=== PATIENT | male | born 1945 | race Caucasian/White ===

== ENCOUNTER 2019-10-22 20:43 | Emergency (ER) | payer MEDICARE, OTHER, SELFPAY ==
[2019-10-22 20:44] VITALS: BP 170/105; PULSE 97; RESP 18; TEMP 36.9; O2SAT 95; BMI 33.4
[2019-10-22] MEDS: Diphth,Pertuss(Acell),Tet Vac 0.5 ML Vial IM (21:25)
--- NOTE | 2019-10-22 22:45 | ED.DEP ---
ED Disposition - Plan for ED Patient: Instructions: Dog Bite Prescriptions: Amox/Clavulanate Tablet [Augmentin Tablet] 875 mg PO Q12H #20 tab Transmission Status: Pending to [id number] Referrals: Ivan Pinzon Chi, MD [Primary Care Provider] -
--- NOTE | 2019-10-22 22:49 | ED.VISSUMM ---
- ER Visit Summary Date of Service: 10/22/19 Chief Complaint: Dog bite History of Present Illness: The patient is a 74 M presenting after dog bite. Patient was trying to break up a fight between his 2 dogs that were fighting over a toy. One of his dogs bit him on his left hand. Last tetanus is unknown. No other injuries. Dog's immunizations are up-to-date. Physical Examination: Vitals are stable. Patient is afebrile. Alert no acute distress. HEENT exam is unremarkable. Neck is supple. Lungs are clear and equal bilaterally. Heart is regular rate and rhythm. Extremities 3 cm laceration proximal to left thumb. Tendon function intact. Neurovascularly intact distally. Skin is warm and dry. No focal neurologic deficit. Remainder of exam is unremarkable. Emergency Department Course and Treatment: Wound was copiously irrigated. Anesthetized with lidocaine. Gaping area was loosely approximated with 2, 5-0 simple sutures. Patient is advised to watch closely for signs of infection. Advised to follow-up with primary care physician. He is given Augmentin and a prescription for Augmentin. He was given tetanus IM. Advised return to ED if worsening complaints. Disposition: Discharge home Impression: Dog bite, laceration repair This note was generated with [employer] dictation software. It may contain incorrect words, spelling, and punctuation that were not noted in review of the chart prior to signing ED Disposition - Plan for ED Patient: Instructions: Dog Bite Prescriptions: Amox/Clavulanate Tablet [Augmentin Tablet] 875 mg PO Q12H #20 tab Transmission Status: Received by [facility]/pharmacy #[id number] Referrals: Ivan Pinzon Chi, MD [Primary Care Provider] -
[2019-10-22] MEDS: Amox/Clavulanate 875 MG Tablet PO (23:04)
[2019-10-22 23:05] VITALS: PULSE 97; RESP 18; O2SAT 95
== END 2019-10-22 23:05 | disposition home or self-care (01) ==
LOC: ED 21:32
PROVIDERS: Emergency Provider Emergency Medicine; Family Provider Family Medicine Geriatric Medicine; PCP Family Medicine Geriatric Medicine
DX: S61.452A Open bite of left hand, initial encounter (principal); W54.0XXA Bitten by dog, initial encounter; Y93.89 Activity, other specified
CPT/HCPCS: 12002; 90471; 90715; 99283

== ENCOUNTER → 2019-11-22 12:09 | Outpatient (CLI) | payer MEDICARE, OTHER, SELFPAY ==
[2019-11-22 14:05] LABS: Absolute Lymphocyte Count 1.94 X10^3/uL (0.83-4.51); Basophil# 0.05 X10^3/uL; Basophil% 0.8 % (0-1); Eosinophil# 0.14 X10^3/uL; Eosinophils% 2.1 % (0-5); Hematocrit 44.3 % (40-54); Hemoglobin 14.9 g/dL (13.0-16.5); Lymphocyte # 1.94 X10^3/ul (4.0); Lymphocyte % 29.4 % (19-41); Mean Corp Hgb Conc 33.6 g/dL (32-36); Mean Corpuscular Hgb 29.3 pg (27.0-32.0); Mean Platelet Vol. 11.8 fl (6.2-12.0); Monocyte# 0.49 X10^3/uL; Monocyte% 7.4 % (0-10); NRBC Flagged by Analyzer 0 % (0-5); Neutrophil # 3.97 X10^3/uL (2.7-7.7); Neutrophil % 60.1 % (47-70); Platelet Count 101 K/mm3 (150-450); RBC Distribution Width SD 43.7 fl (35.1-43.9); Red Blood Count 5.09 M/mm3 (4.6-6.2); White Blood Count 6.6 K/mm3 (4.4-11.0)
[2019-11-22 14:34] LABS: ALB/GLOB Ratio 1.1 RATIO (0.9-2.4); AST(SGOT) 18 U/L (15-37); Alanine Aminotransfer ALT/SGPT 37 U/L (16-61); Albumin, Serum 3.7 g/dL (3.2-5.0); Alkaline Phosphatase 86 U/L (45-117); Anion Gap 7 (5-15); BUN 20 mg/dL (7-18); BUN/Creat Ratio 18.2 RATIO (10-20); Calcium,Total 9.2 mg/dL (8.5-10.1); Chloride 101 mmol/L (98-107); EST Glomerular Filtration Rate 70 mL/min (>60); Est Glom Filt Rate - Afr Amer 85 mL/min (>60); Globulin 3.5 g/dL (2.2-4.2); Glucose 422 mg/dL (74-106); Potassium 4.6 mmol/L (3.5-5.1); Protein, Total 7.2 g/dL (6.4-8.2); Sodium Level 135 mmol/L (136-145); Thyroid Stim Hormone (TSH) 4.51 uIU/mL (0.358-3.74)
== END ==
PROVIDERS: PCP Family Medicine Geriatric Medicine; Visit Provider Family Medicine Geriatric Medicine
DX: N39.0 Urinary tract infection, site not specified (principal); R53.83 Other fatigue
CPT/HCPCS: 36415; 80053; 84443; 85025; 87086; 87088

== ENCOUNTER → 2019-12-23 13:50 | Outpatient (CLI) | payer MEDICARE, OTHER, SELFPAY ==
[2019-12-23 14:29] LABS: Absolute Neutrophil Count 7.5 X10^3/uL (2.0-7.7); Basophil# 0.03 X10^3/uL; Basophil% 0.3 % (0-1); Eosinophil# 0.13 X10^3/uL; Eosinophils% 1.2 % (0-5); Hematocrit 41.3 % (40-54); Hemoglobin 13.8 g/dL (13.0-16.5); Lymphocyte % 17.8 % (19-41); Mean Corp Hgb Conc 33.4 g/dL (32-36); Mean Corpuscular Hgb 29.6 pg (27.0-32.0); Mean Corpuscular Volume 88.6 fL (80-94); Mean Platelet Vol. 10.9 fl (6.2-12.0); Monocyte# 1.11 X10^3/uL; Monocyte% 10.4 % (0-10); NRBC Flagged by Analyzer 0 % (0-5); Neutrophil # 7.47 X10^3/uL (2.7-7.7); Neutrophil % 70.1 % (47-70); Platelet Count 129 K/mm3 (150-450); RBC Distribution Width CV 14.2 % (11.6-14.6); RBC Distribution Width SD 45.4 fl (35.1-43.9); Red Blood Count 4.66 M/mm3 (4.6-6.2); White Blood Count 10.7 K/mm3 (4.4-11.0)
[2019-12-23 14:36] LABS: Anion Gap 7 (5-15); BUN 25 mg/dL (7-18); BUN/Creat Ratio 18.2 RATIO (10-20); Calcium,Total 8.9 mg/dL (8.5-10.1); Chloride 106 mmol/L (98-107); Creatinine, Serum 1.37 mg/dL (0.70-1.30); EST Glomerular Filtration Rate 54 mL/min (>60); Est Glom Filt Rate - Afr Amer 66 mL/min (>60); Glucose 163 mg/dL (74-106); Potassium 3.9 mmol/L (3.5-5.1); Sodium Level 138 mmol/L (136-145)
--- NOTE | 2019-12-23 15:57 | RAD_ITS ---
STUDY: X-RAY - ABDOMEN/PELVIS REASON FOR EXAM: Male, 74 years old. DYSURIA WITH PAIN, NO PAIN NOW -- HX OF KIDNEY STONES- REMOVED IN AUGUST TECHNIQUE: Single AP view of the abdomen / pelvis. COMPARISON: None. FINDINGS: Normal visualized lung bases. There is an unremarkable bowel gas pattern. The visualized liver, spleen and kidneys are grossly normal in size and morphology. Normal soft tissue structures. Status post bilateral hip arthroplasty. RAD/Abd Inc Decub and/or Erect IMPRESSION: Normal x-ray examination of the abdomen and pelvis. Electronically Signed: Marcin Fernandes MD at 8:04 EST Tel , Service support ,
== END ==
PROVIDERS: PCP Family Medicine Geriatric Medicine; Referring Provider Family Medicine Geriatric Medicine; Visit Provider Family Medicine Geriatric Medicine
DX: N39.0 Urinary tract infection, site not specified (principal)
CPT/HCPCS: 36415; 74019; 80048; 85025; 87086; 87088

== ENCOUNTER → 2019-12-24 10:57 | Outpatient (CLI) | payer MEDICARE, OTHER, SELFPAY ==
[2019-12-24 13:16] LABS: Anion Gap 6 (5-15); BUN 22 mg/dL (7-18); Chloride 104 mmol/L (98-107); Creatinine, Serum 1.05 mg/dL (0.70-1.30); EST Glomerular Filtration Rate 74 mL/min (>60); Est Glom Filt Rate - Afr Amer 89 mL/min (>60); Glucose 258 mg/dL (74-106); Potassium 4.1 mmol/L (3.5-5.1); Sodium Level 138 mmol/L (136-145)
== END ==
PROVIDERS: PCP Family Medicine Geriatric Medicine; Visit Provider Family Medicine Geriatric Medicine
DX: N17.9 Acute kidney failure, unspecified (principal)
CPT/HCPCS: 36415; 80048

== ENCOUNTER → 2020-02-16 13:36 | Outpatient (CLI) | payer MEDICARE, OTHER, SELFPAY ==
[2020-02-16 15:30] LABS: Absolute Lymphocyte Count 2.01 X10^3/uL (0.83-4.51); Absolute Neutrophil Count 5.4 X10^3/uL (2.0-7.7); Basophil# 0.05 X10^3/uL; Basophil% 0.6 % (0-1); Eosinophils% 2.3 % (0-5); Hematocrit 42.3 % (40-54); Hemoglobin 14.3 g/dL (13.0-16.5); Lymphocyte # 2.01 X10^3/ul (4.0); Lymphocyte % 23.3 % (19-41); Mean Corp Hgb Conc 33.8 g/dL (32-36); Mean Corpuscular Hgb 30.4 pg (27.0-32.0); Mean Platelet Vol. 11.2 fl (6.2-12.0); Monocyte# 0.92 X10^3/uL; Monocyte% 10.6 % (0-10); NRBC Flagged by Analyzer 0 % (0-5); Neutrophil # 5.43 X10^3/uL (2.7-7.7); Neutrophil % 62.9 % (47-70); Platelet Count 153 K/mm3 (150-450); RBC Distribution Width CV 14.3 % (11.6-14.6); RBC Distribution Width SD 46.8 fl (35.1-43.9); White Blood Count 8.6 K/mm3 (4.4-11.0)
[2020-02-16 15:44] LABS: Vitamin D,25 Hydroxy 27.2 ng/mL
[2020-02-16 15:57] LABS: ALB/GLOB Ratio 1.1 RATIO (0.9-2.4); AST(SGOT) 18 U/L (15-37); Alanine Aminotransfer ALT/SGPT 27 U/L (16-61); Albumin, Serum 3.9 g/dL (3.2-5.0); Alkaline Phosphatase 90 U/L (45-117); Anion Gap 9 (5-15); BUN 21 mg/dL (7-18); BUN/Creat Ratio 22.4 RATIO (10-20); Calcium,Total 8.9 mg/dL (8.5-10.1); Chloride 104 mmol/L (98-107); Creatinine, Serum 0.94 mg/dL (0.70-1.30); EST Glomerular Filtration Rate 84 mL/min (>60); Est Glom Filt Rate - Afr Amer 102 mL/min (>60); Globulin 3.5 g/dL (2.2-4.2); Glucose 139 mg/dL (74-106); Potassium 4.2 mmol/L (3.5-5.1); Protein, Total 7.4 g/dL (6.4-8.2); Sodium Level 138 mmol/L (136-145); Thyroid Stim Hormone (TSH) 3.87 uIU/mL (0.358-3.74)
== END ==
PROVIDERS: PCP Family Medicine Geriatric Medicine; Visit Provider Family Medicine Geriatric Medicine
DX: E11.9 Type 2 diabetes mellitus without complications (principal); E55.9 Vitamin D deficiency, unspecified; I10 Essential (primary) hypertension
CPT/HCPCS: 36415; 80053; 82306; 84443; 85025

== ENCOUNTER → 2020-04-04 10:30 | Outpatient (CLI) | payer MEDICARE, OTHER, SELFPAY ==
[2020-04-04 12:36] LABS: Thyroid Stim Hormone (TSH) 2.38 uIU/mL (0.358-3.74)
== END ==
PROVIDERS: PCP Family Medicine Geriatric Medicine; Visit Provider Family Medicine Geriatric Medicine
DX: E03.9 Hypothyroidism, unspecified (principal)
CPT/HCPCS: 36415; 84443

== ENCOUNTER 2020-06-16 08:45 | Emergency (ER) | payer MEDICARE, OTHER, SELFPAY ==
[2020-06-16 08:47] VITALS: BP 190/104; PULSE 86; RESP 17; TEMP 36.3; O2SAT 96; BMI 34.8
--- NOTE | 2020-06-16 08:53 | ED.VIS.GEN ---
History of Present Illness Chief Complaint: Other, Pain/Inj Informant: Patient Narrative: 75-year-old male presenting with left-sided trapezius spasm. He states it goes from the base of his skull into the top of the trapezius. When he uses shoulder backward it causes it to feel like it is tingling. States that he used 1 of his 's lidocaine patches and this helped but did not completely away the pain. He is not had this problem before. I he states it started after he laid down yesterday and woke up with it. He is not have any chest pain, palpitations, shortness of breath, dizziness, lightheadedness, change in vision. d Past Medical History - Allergies and Home Meds Allergies/Adverse Reactions: Allergies alcohol Adverse Reaction (Verified 06/16/20 08:47) LIVER ISSUES Sulfa (Sulfonamide Antibiotics) Adverse Reaction (Verified 06/16/20 08:47) Other Primary Care Physician: Ivan Pinzon Chi, MD [Primary Care Provider] - Surgical History: arthscropcy, hip Smoking Status: Never smoker Review of Systems General: Denies: Chills, Fever, Sweats Eyes: Denies: Visual changes - bilaterally, Diplopia ENT: Denies: Rhinorrhea, Sore throat Cardiovascular: Denies: Chest pain, Palpitations Respiratory: Denies: Dyspnea, Cough, Dyspnea on exertion Gastrointestinal: Denies: Abdominal pain, Nausea, Vomiting, Diarrhea, Melena, Hematochezia Musculoskeletal: Reports: Back pain, Extremity Pain, - - Patient complained of left-sided neck, trapezius pain exacerbated by external rotation of the shoulder Skin: Denies: Rash, Wounds Neurological: Denies: Headache, Weakness, Numbness Physical Exam Vital Signs/Narrative: Vital Signs Temp Pulse Resp BP Pulse Ox 06/16/20 08:47 97.3 F L 86 17 190/104 H 96 General: Well nourished, Well developed, No Acute Distress Head: Normocephalic Eyes: Perrl, EOMI ENT: Moist mucous membranes Cardiovascular: Regular rate, Regular rhythm Respiratory: No distress Back: - - There is tenderness to palpation the left dizziness, paraspinal musculature up into the insertion point at the base of the skull of the trapezius. There is also elicited pain with abduction and external rotation of the shoulder.. Negative for: Spinal tenderness Diagnostic/Tx/Re-eval - Medical Decision Making Patient presents with muscle spasm in the left trapezius. He reports it better with lidocaine patches. He has more of these at home. Patient is on Coumadin so he does not take anti-inflammatories. I did speak to the patient about possibly using a muscle relaxer. I stated that I do not typically prescribe these to elderly males. His daughter is here and states that she can stay with him to make sure that he is safe to see how he handles the medication. He is amenable to trying this. Patient will get a Flexeril in the ED. Patient's daughter will drive him home. If he has any problems there counseled to return as needed. Impression: 1. Cervical strain 2. Muscle spasm ED Disposition - Plan for ED Patient: Disposition: Home or Assisted Living Instructions: Muscle Spasm Referrals: Ivan Pinzon Chi, MD [Primary Care Provider] -
[2020-06-16] MEDS: cycloBENZAPRine HCl 10 MG Tablet PO (09:09)
== END 2020-06-16 09:26 | disposition home or self-care (01) ==
PROVIDERS: Emergency Provider Student in an Organized Health Care Education/Training Program; PCP Family Medicine Geriatric Medicine
DX: S16.1XXA Strain of muscle, fascia and tendon at neck level, initial encounter (principal); M62.838 Other muscle spasm; Z79.01 Long term (current) use of anticoagulants; X58.XXXA Exposure to other specified factors, initial encounter
CPT/HCPCS: 99282

== ENCOUNTER → 2020-06-20 11:34 | Outpatient (CLI) | payer MEDICARE, OTHER, SELFPAY ==
[2020-06-16 08:47] VITALS: BMI 34.8
--- NOTE | 2020-06-20 11:37 | RAD_ITS ---
STUDY: X-RAY - CERVICAL SPINE REASON FOR EXAM: Male, 75 years old. Neck pain beginning last . Bilateral arm pain. TECHNIQUE: 3 view(s) of the cervical spine were obtained. COMPARISON: None FINDINGS: There are degenerative changes of the anterior atlantoaxial articulation. Normal odontoid process. Normal cervical lordosis. There is multi-level endplate spondylosis. There is multi-level degenerative disc disease with multilevel disc space narrowing. There is no evidence of acute fracture or loss of vertebral axial height. There is maintenance of normal alignment. The soft tissue structures are unremarkable. RAD/Cerv Spine 2 or 3 Views IMPRESSION: Degenerative changes of the cervical spine. Electronically Signed: Jacob Guajardo DO at 20:02 EDT Tel [phone], Service support ,
== END ==
PROVIDERS: PCP Family Medicine Geriatric Medicine; Referring Provider Family Medicine Geriatric Medicine; Visit Provider Family Medicine Geriatric Medicine
DX: M54.2 Cervicalgia (principal)
CPT/HCPCS: 72040

== ENCOUNTER → 2020-08-22 13:31 | Outpatient (CLI) | payer MEDICARE, OTHER, SELFPAY ==
[2020-07-19 09:59] VITALS: BMI 34.8
[2020-08-22 17:09] LABS: Absolute Lymphocyte Count 1.59 X10^3/uL (0.83-4.51); Absolute Neutrophil Count 4.1 X10^3/uL (2.0-7.7); Basophil# 0.04 X10^3/uL; Basophil% 0.6 % (0-1); Eosinophil# 0.16 X10^3/uL; Eosinophils% 2.4 % (0-5); Hematocrit 40.2 % (40-54); Hemoglobin 13.3 g/dL (13.0-16.5); Lymphocyte # 1.59 X10^3/ul (4.0); Lymphocyte % 24.1 % (19-41); Mean Corp Hgb Conc 33.1 g/dL (32-36); Mean Corpuscular Hgb 30.4 pg (27.0-32.0); Monocyte# 0.67 X10^3/uL; Monocyte% 10.1 % (0-10); NRBC Flagged by Analyzer 0 % (0-5); Neutrophil # 4.13 X10^3/uL (2.7-7.7); Neutrophil % 62.5 % (47-70); Platelet Count 148 K/mm3 (150-450); RBC Distribution Width CV 15.1 % (11.6-14.6); RBC Distribution Width SD 50.8 fl (35.1-43.9); Red Blood Count 4.37 M/mm3 (4.6-6.2); White Blood Count 6.6 K/mm3 (4.4-11.0)
[2020-08-22 17:28] LABS: Vitamin D,25 Hydroxy 26.9 ng/mL
[2020-08-22 17:32] LABS: ALB/GLOB Ratio 1.1 RATIO (0.9-2.4); AST(SGOT) 13 U/L (15-37); Alanine Aminotransfer ALT/SGPT 30 U/L (16-61); Albumin, Serum 3.5 g/dL (3.2-5.0); Alkaline Phosphatase 94 U/L (45-117); Anion Gap 8 (5-15); BUN 16 mg/dL (7-18); BUN/Creat Ratio 16.2 RATIO (10-20); Calcium,Total 8.5 mg/dL (8.5-10.1); Chloride 106 mmol/L (98-107); Creatinine, Serum 0.99 mg/dL (0.70-1.30); EST Glomerular Filtration Rate 79 mL/min (>60); Est Glom Filt Rate - Afr Amer 96 mL/min (>60); Globulin 3.3 g/dL (2.2-4.2); Glucose 204 mg/dL (74-106); Potassium 4.2 mmol/L (3.5-5.1); Protein, Total 6.8 g/dL (6.4-8.2); Sodium Level 139 mmol/L (136-145); Thyroid Stim Hormone (TSH) 3.41 uIU/mL (0.358-3.74)
== END ==
PROVIDERS: PCP Family Medicine Geriatric Medicine; Visit Provider Family Medicine Geriatric Medicine
DX: E11.9 Type 2 diabetes mellitus without complications (principal); E55.9 Vitamin D deficiency, unspecified
CPT/HCPCS: 36415; 80053; 82306; 84443; 85025

== ENCOUNTER 2021-01-09 16:02 | Outpatient (RCR) | payer MEDICARE, OTHER, SELFPAY ==
[2020-07-19 09:59] VITALS: BMI 34.8
[2021-01-09] MEDS: COVID-19 VACC, MRNA(PFIZER)/PF 30 MCG/0.3 ML SYRINGE IM (09:30)
[2021-01-30] MEDS: COVID-19 VACC, MRNA(PFIZER)/PF 30 MCG/0.3 ML SYRINGE IM (09:29)
== END 2021-04-10 23:59 ==
LOC: IMMUN 16:02
PROVIDERS: PCP Family Medicine Geriatric Medicine; Visit Provider Family Medicine
DX: Z23 Encounter for immunization (principal)
CPT/HCPCS: 0001A; 0002A; 91300

== ENCOUNTER → 2021-02-20 10:24 | Outpatient (CLI) | payer MEDICARE, OTHER, SELFPAY ==
[2020-07-19 09:59] VITALS: BMI 34.8
[2021-02-20 10:45] LABS: Absolute Lymphocyte Count 1.67 X10^3/uL (0.83-4.51); Absolute Neutrophil Count 4.4 X10^3/uL (2.0-7.7); Basophil# 0.04 X10^3/uL; Basophil% 0.6 % (0-1); Eosinophil# 0.16 X10^3/uL; Eosinophils% 2.3 % (0-5); Hematocrit 42.6 % (40-54); Hemoglobin 14.1 g/dL (13.0-16.5); Lymphocyte # 1.67 X10^3/ul (0.83-4.51); Lymphocyte % 24.1 % (19-41); Mean Corp Hgb Conc 33.1 g/dL (32-36); Mean Corpuscular Hgb 29.4 pg (27.0-32.0); Mean Corpuscular Volume 88.8 fL (80-94); Mean Platelet Vol. 10.9 fl (6.2-12.0); Monocyte# 0.65 X10^3/uL; Monocyte% 9.4 % (0-10); NRBC Flagged by Analyzer 0 % (0-5); Neutrophil # 4.38 X10^3/uL (2.7-7.7); Neutrophil % 63.3 % (47-70); Platelet Count 154 K/mm3 (150-450); RBC Distribution Width CV 13.9 % (11.6-14.6); RBC Distribution Width SD 45.5 fl (35.1-43.9); White Blood Count 6.9 K/mm3 (4.4-11.0)
[2021-02-20 11:15] LABS: Vitamin D,25 Hydroxy 27.8 ng/mL
[2021-02-20 11:23] LABS: ALB/GLOB Ratio 0.9 RATIO (0.9-2.4); AST(SGOT) 15 U/L (15-37); Alanine Aminotransfer ALT/SGPT 22 U/L (16-61); Albumin, Serum 3.5 g/dL (3.2-5.0); Alkaline Phosphatase 108 U/L (45-117); Anion Gap 7 (5-15); BUN 17 mg/dL (7-18); BUN/Creat Ratio 17.2 RATIO (10-20); Calcium,Total 8.9 mg/dL (8.5-10.1); Chloride 100 mmol/L (98-107); Creatinine, Serum 0.99 mg/dL (0.70-1.30); EST Glomerular Filtration Rate 79 mL/min (>60); Est Glom Filt Rate - Afr Amer 95 mL/min (>60); Globulin 3.7 g/dL (2.2-4.2); Glucose 345 mg/dL (74-106); Potassium 4.3 mmol/L (3.5-5.1); Protein, Total 7.2 g/dL (6.4-8.2); Sodium Level 134 mmol/L (136-145); Thyroid Stim Hormone (TSH) 6.58 uIU/mL (0.358-3.74)
== END ==
PROVIDERS: PCP Family Medicine Geriatric Medicine; Visit Provider Family Medicine Geriatric Medicine
DX: E11.65 Type 2 diabetes mellitus with hyperglycemia (principal); E55.9 Vitamin D deficiency, unspecified
CPT/HCPCS: 36415; 80053; 82306; 84443; 85025

== ENCOUNTER → 2021-04-11 11:52 | Outpatient (CLI) | payer MEDICARE, SELFPAY ==
[2020-07-19 09:59] VITALS: BMI 34.8
[2021-04-11 13:10] LABS: Thyroid Stim Hormone (TSH) 3.83 uIU/mL (0.358-3.74)
== END ==
PROVIDERS: PCP Family Medicine Geriatric Medicine; Visit Provider Family Medicine Geriatric Medicine
DX: E03.9 Hypothyroidism, unspecified (principal)
CPT/HCPCS: 36415; 84443

== ENCOUNTER → 2021-05-24 09:03 | Outpatient (CLI) | payer MEDICARE, OTHER, SELFPAY ==
[2020-07-19 09:59] VITALS: BMI 34.8
[2021-05-24 12:38] LABS: Absolute Lymphocyte Count 2.01 X10^3/uL (0.83-4.51); Absolute Neutrophil Count 4.3 X10^3/uL (2.0-7.7); Basophil# 0.03 X10^3/uL; Basophil% 0.4 % (0-1); Eosinophils% 2.8 % (0-5); Hematocrit 42.5 % (40-54); Hemoglobin 13.9 g/dL (13.0-16.5); Lymphocyte # 2.01 X10^3/ul (0.83-4.51); Lymphocyte % 27.8 % (19-41); Mean Corp Hgb Conc 32.7 g/dL (32-36); Mean Corpuscular Hgb 29.2 pg (27.0-32.0); Mean Corpuscular Volume 89.3 fL (80-94); Mean Platelet Vol. 11.2 fl (6.2-12.0); Monocyte# 0.72 X10^3/uL; NRBC Flagged by Analyzer 0 % (0-5); Neutrophil # 4.26 X10^3/uL (2.7-7.7); Neutrophil % 58.9 % (47-70); Platelet Count 136 K/mm3 (150-450); RBC Distribution Width CV 14.5 % (11.6-14.6); RBC Distribution Width SD 46.9 fl (35.1-43.9); Red Blood Count 4.76 M/mm3 (4.6-6.2); White Blood Count 7.2 K/mm3 (4.4-11.0)
[2021-05-24 13:17] LABS: AST(SGOT) 21 U/L (15-37); Alanine Aminotransfer ALT/SGPT 30 U/L (16-61); Albumin, Serum 3.4 g/dL (3.2-5.0); Alkaline Phosphatase 103 U/L (45-117); Anion Gap 5 (5-15); BUN 20 mg/dL (7-18); BUN/Creat Ratio 22.5 RATIO (10-20); Calcium,Total 8.9 mg/dL (8.5-10.1); Chloride 104 mmol/L (98-107); Creatinine, Serum 0.89 mg/dL (0.70-1.30); EST Glomerular Filtration Rate 89 mL/min (>60); Est Glom Filt Rate - Afr Amer 108 mL/min (>60); Globulin 3.4 g/dL (2.2-4.2); Glucose 205 mg/dL (74-106); Potassium 4.3 mmol/L (3.5-5.1); Protein, Total 6.8 g/dL (6.4-8.2); Sodium Level 138 mmol/L (136-145); Thyroid Stim Hormone (TSH) 3.78 uIU/mL (0.358-3.74)
[2021-05-24 21:15] LABS: BNP,B-Type NATRIURETIC PEPTIDE 140.8 pg/mL (0-100)
[2021-05-24 21:31] LABS: Vitamin D,25 Hydroxy 28.9 ng/mL
== END ==
PROVIDERS: PCP Family Medicine Geriatric Medicine; Visit Provider Family Medicine Geriatric Medicine
DX: E11.65 Type 2 diabetes mellitus with hyperglycemia (principal); E55.9 Vitamin D deficiency, unspecified; R06.9 Unspecified abnormalities of breathing; R53.83 Other fatigue
CPT/HCPCS: 36415; 80053; 82306; 83880; 84443; 85025

== ENCOUNTER → 2021-05-30 12:55 | Outpatient (CLI) | payer MEDICARE, OTHER, SELFPAY ==
[2020-07-19 09:59] VITALS: BMI 34.8
--- NOTE | 2021-05-30 12:57 | ECHOCS_ITS ---
Reason For Study: CHF Procedure This was a 2D Doppler, Color Flow transthoracic echocardiogram. The study was technically difficult. Contrast injection was performed. Exam performed in department. Left Ventricle Normal LV size. Left ventricular systolic function is normal. The estimated ejection fraction is 65 %. Unable to assess diastolic dysfunction. No regional wall motion abnormalities noted. Right Ventricle Normal RV size. Normal systolic function. Atria The left atrium is moderately enlarged. Normal right atrium. No doppler evidence for ASD. Mitral Valve There is moderate mitral annular calcification. Extension of the mitral annular calcification on the base the posterior mitral valve leaflet. Mild mitral valve stenosis. Mild (1+) mitral valve insufficiency. Tricuspid Valve Normal tricuspid valve. Trivial tricuspid valve insufficiency. Unable to estimate RV systolic pressure/pulmonary artery pressure due to technically difficult study. Aortic Valve Trisinus/trileaflet aortic valve. Mild diffuse aortic valve thickening. Mild diffuse aortic valve calcification. Mild aortic stenosis. Trivial aortic valve insufficiency. Pulmonic Valve The pulmonic valve is not well visualized. Trivial pulmonic valve insufficiency. Great Vessels Mildly dilated aortic root. Pericardium/Pleural No pericardial effusion. Medication 22 gauge I.V. with prn adaptor inserted into left arm. Diluted definity 4ml given slow IV push to enhance endocardial definition. MMode/2D Measurements & Calculations LVIDd: 4.3 cm IVSd: 1.2 cm LVOT diam: 2.0 cm LVIDs: 2.9 cm LVPWd: 1.2 cm RVDd: 3.6 cm FS: 31.6 % LVOT area: 3.1 cm2 Ao root diam: 4.1 cm LAV(MOD-bp): 107.1 ml LVAd ap4: 29.0 cm2 LAV(MOD-bp) Indexed: 46.9 ml/m2 LVLd ap4: 7.4 cm LAV(MOD-sp2): 114.5 ml EDV(MOD-sp4): 92.2 ml LAV(MOD-sp4): 97.5 ml EDV(sp4-el): 96.6 ml LVAs ap4: 17.0 cm2 LVLs ap4: 6.1 cm ESV(MOD-sp4): 38.1 ml ESV(sp4-el): 40.0 ml EF(MOD-sp4): 58.6 % EF(sp4-el): 58.6 % LVAd ap2: 30.6 cm2 SV(MOD-sp4): 54.0 ml SV(MOD-sp2): 48.0 ml LVLd ap2: 7.8 cm EDV(MOD-sp2): 100.7 ml EDV(sp2-el): 101.7 ml LVAs ap2: 20.8 cm2 LVLs ap2: 7.1 cm ESV(MOD-sp2): 52.8 ml ESV(sp2-el): 51.8 ml EF(MOD-sp2): 47.6 % SV(sp4-el): 56.6 ml Aortic Valve Planimetry: 1.4 cm2 LA A4 area: 29.2 cm2 LA dimension(2D): 5.4 cm RA A4 area: 20.9 cm2 Time Measurements MV dec time: 0.19 sec Doppler Measurements & Calculations MV E max oswaldo: 129.9 cm/sec Lat Peak E' Oswaldo: 9.7 cm/sec Med Peak E' Oswaldo: 7.4 cm/sec E/E' lat: 13.4 E/E' med: 17.7 MV V2 max: 138.3 cm/sec Ao V2 max: 211.2 cm/sec AI max oswaldo: 355.0 cm/sec MV max P.7 mmHg Ao max P.9 mmHg AI max P.6 mmHg MV V2 mean: 72.4 cm/sec Ao V2 mean: 147.9 cm/sec MV mean P.7 mmHg Ao mean P.7 mmHg AI dec slope: 315.1 cm/sec2 MV V2 VTI: 31.5 cm Ao V2 VTI: 40.9 cm AI P1/2t: 329.9 msec MVA(VTI): 1.8 cm2 MARKEL(I,D): 1.4 cm2 MARKEL(V,D): 1.4 cm2 LV V1 max: 96.1 cm/sec SV(LVOT): 55.6 ml PA V2 max: 110.6 cm/sec LV V1 max P.7 mmHg LV V1 mean P.8 mmHg LV V1 mean: 63.8 cm/sec LV V1 VTI: 17.8 cm PI end-d oswaldo: 84.9 cm/sec ECHO/Echo Complete W/ Contrast Interpretation Summary The study was technically difficult. Contrast injection was performed. Left ventricular systolic function is normal. The estimated ejection fraction is 65 %. The left atrium is moderately enlarged. There is moderate mitral annular calcification. Extension of the mitral annular calcification on the base the posterior mitral valve leaflet. Mild mitral valve stenosis. Mild (1+) mitral valve insufficiency. Trivial tricuspid valve insufficiency. Mild aortic stenosis. Trivial aortic valve insufficiency. Trivial pulmonic valve insufficiency. Mildly dilated aortic root. Unable to estimate RV systolic pressure/pulmonary artery pressure due to techni nina difficult study. Unable to assess diastolic dysfunction. Ordering Physician: Ivan Pinzon Referring Physician: Ivan Pinzon Chi Performed By: Jodee Messina, ESTRADA, RVT
== END ==
PROVIDERS: PCP Family Medicine Geriatric Medicine; Referring Provider Family Medicine Geriatric Medicine; Visit Provider Family Medicine Geriatric Medicine
DX: I50.9 Heart failure, unspecified (principal); R06.00 Dyspnea, unspecified
CPT/HCPCS: 93306; Q9957; A4216; C8929; J3490

== ENCOUNTER → 2021-08-23 11:06 | Outpatient (CLI) | payer MEDICARE, OTHER, SELFPAY ==
[2020-07-19 09:59] VITALS: BMI 34.8
[2021-08-23 12:40] LABS: Absolute Lymphocyte Count 2.01 X10^3/uL (0.83-4.51); Basophil# 0.05 X10^3/uL; Basophil% 0.6 % (0-1); Eosinophil# 0.26 X10^3/uL; Eosinophils% 3.2 % (0-5); Hemoglobin 13.5 g/dL (13.0-16.5); Lymphocyte # 2.01 X10^3/ul (0.83-4.51); Lymphocyte % 24.8 % (19-41); Mean Corp Hgb Conc 32.9 g/dL (32-36); Mean Corpuscular Hgb 29.2 pg (27.0-32.0); Mean Corpuscular Volume 88.6 fL (80-94); Mean Platelet Vol. 10.8 fl (6.2-12.0); Monocyte# 0.76 X10^3/uL; Monocyte% 9.4 % (0-10); NRBC Flagged by Analyzer 0 % (0-5); Neutrophil # 4.99 X10^3/uL (2.7-7.7); Neutrophil % 61.8 % (47-70); Platelet Count 180 K/mm3 (150-450); RBC Distribution Width SD 48.2 fl (35.1-43.9); Red Blood Count 4.63 M/mm3 (4.6-6.2); White Blood Count 8.1 K/mm3 (4.4-11.0)
[2021-08-23 13:06] LABS: Vitamin D,25 Hydroxy 33.6 ng/mL
[2021-08-23 13:31] LABS: ALB/GLOB Ratio 0.9 RATIO (0.9-2.4); AST(SGOT) 24 U/L (15-37); Alanine Aminotransfer ALT/SGPT 25 U/L (16-61); Albumin, Serum 3.4 g/dL (3.2-5.0); Alkaline Phosphatase 121 U/L (45-117); Anion Gap 8 (5-15); BUN 18 mg/dL (7-18); BUN/Creat Ratio 17.6 RATIO (10-20); Calcium,Total 8.9 mg/dL (8.5-10.1); Chloride 104 mmol/L (98-107); Creatinine, Serum 1.02 mg/dL (0.70-1.30); EST Glomerular Filtration Rate 76 mL/min (>60); Est Glom Filt Rate - Afr Amer 92 mL/min (>60); Globulin 3.9 g/dL (2.2-4.2); Glucose 258 mg/dL (74-106); Potassium 4.6 mmol/L (3.5-5.1); Protein, Total 7.3 g/dL (6.4-8.2); Sodium Level 138 mmol/L (136-145); Thyroid Stim Hormone (TSH) 2.59 uIU/mL (0.358-3.74)
== END ==
PROVIDERS: PCP Family Medicine Geriatric Medicine; Visit Provider Family Medicine Geriatric Medicine
DX: E11.65 Type 2 diabetes mellitus with hyperglycemia (principal); E55.9 Vitamin D deficiency, unspecified; E03.9 Hypothyroidism, unspecified; R53.83 Other fatigue
CPT/HCPCS: 36415; 80053; 82306; 84443; 85025

== ENCOUNTER → 2021-09-18 09:20 | Outpatient (CLI) | payer MEDICARE, OTHER, SELFPAY ==
--- NOTE | 2021-09-18 09:24 | RAD_ITS ---
STUDY: X-RAY BONE LENGTH SCANOGRAM REASON FOR EXAM: Male, 76 years old. Evaluate for leg length discrepancy. TECHNIQUE: Frontal views of the lower pelvis and lower extremities were obtained on 5 images. COMPARISON: None. FINDINGS: Pelvic tilt with bilateral total hip arthroplasties. On the right, the distance from the acetabular component of the total hip arthroplasty to the medial femorotibial compartment is 54 cm. The distance from the medial femorotibial compartment to the tibiotalar compartment is 34 cm. On the left, the distance from the acetabular component of the total hip arthroplasty to the medial femorotibial compartment is 52.5 cm. The distance from the medial femorotibial compartment to the tibiotalar joint is 36.5 cm. On the right, the total distance from the acetabular component of the total hip arthroplasty to the tibiotalar joint is 88 cm. On the left, the distance from the acetabular component of total hip arthroplasty to the tibiotalar joint is is 89 cm. RAD/Bone Length IMPRESSION: Minimal leg length discrepancy as described. Electronically Signed: Willam Benito MD at 10:49 EST , Service support ,
== END ==
PROVIDERS: PCP Family Medicine Geriatric Medicine; Referring Provider Podiatrist; Visit Provider Podiatrist
DX: M21.70 Unequal limb length (acquired), unspecified site (principal)
CPT/HCPCS: 77073

== ENCOUNTER 2021-11-26 09:18 | Outpatient (CLI) | payer MEDICARE, OTHER, SELFPAY ==
[2021-11-26 12:23] LABS: Absolute Lymphocyte Count 1.88 X10^3/uL (0.83-4.51); Absolute Neutrophil Count 4.3 X10^3/uL (2.0-7.7); Basophil# 0.05 X10^3/uL; Basophil% 0.7 % (0-1); Eosinophils% 2.8 % (0-5); Hematocrit 40.9 % (40-54); Hemoglobin 13.3 g/dL (13.0-16.5); Lymphocyte # 1.88 X10^3/ul (0.83-4.51); Mean Corp Hgb Conc 32.5 g/dL (32-36); Mean Corpuscular Hgb 28.7 pg (27.0-32.0); Mean Corpuscular Volume 88.3 fL (80-94); Monocyte# 0.75 X10^3/uL; Monocyte% 10.4 % (0-10); NRBC Flagged by Analyzer 0 % (0-5); Neutrophil # 4.34 X10^3/uL (2.7-7.7); Platelet Count 163 K/mm3 (150-450); RBC Distribution Width CV 14.9 % (11.6-14.6); RBC Distribution Width SD 48.4 fl (35.1-43.9); Red Blood Count 4.63 M/mm3 (4.6-6.2); White Blood Count 7.2 K/mm3 (4.4-11.0)
[2021-11-26 12:40] LABS: Vitamin D,25 Hydroxy 34.3 ng/mL
[2021-11-26 12:46] LABS: ALB/GLOB Ratio 0.9 RATIO (0.9-2.4); AST(SGOT) 18 U/L (15-37); Alanine Aminotransfer ALT/SGPT 25 U/L (16-61); Albumin, Serum 3.5 g/dL (3.2-5.0); Alkaline Phosphatase 108 U/L (45-117); Anion Gap 8 (5-15); BUN 21 mg/dL (7-18); BUN/Creat Ratio 22.6 RATIO (10-20); Chloride 104 mmol/L (98-107); Creatinine, Serum 0.93 mg/dL (0.70-1.30); EST Glomerular Filtration Rate 85 mL/min (>60); Est Glom Filt Rate - Afr Amer 102 mL/min (>60); Globulin 3.7 g/dL (2.2-4.2); Glucose 220 mg/dL (74-106); Potassium 4.6 mmol/L (3.5-5.1); Protein, Total 7.2 g/dL (6.4-8.2); Sodium Level 139 mmol/L (136-145); Thyroid Stim Hormone (TSH) 4.29 uIU/mL (0.358-3.74)
== END 2021-11-26 23:59 | disposition short-term general hospital (02) ==
LOC: POLAB3 09:20
PROVIDERS: PCP Family Medicine Geriatric Medicine; Visit Provider Family Medicine Geriatric Medicine
DX: E11.65 Type 2 diabetes mellitus with hyperglycemia (principal); E55.9 Vitamin D deficiency, unspecified; R53.83 Other fatigue
CPT/HCPCS: 36415; 80053; 82306; 84443; 85025

== ENCOUNTER 2022-01-09 10:00 | Outpatient (CLI) | payer MEDICARE, OTHER, SELFPAY ==
[2022-01-09 12:23] LABS: Thyroid Stim Hormone (TSH) 2.95 uIU/mL (0.358-3.74)
== END 2022-01-09 23:59 | disposition home or self-care (01) ==
LOC: POLAB3 10:01
PROVIDERS: PCP Family Medicine Geriatric Medicine; Visit Provider Family Medicine Geriatric Medicine
DX: E03.9 Hypothyroidism, unspecified (principal)
CPT/HCPCS: 36415; 84443

== ENCOUNTER → 2022-02-26 | Outpatient (CLI) | payer MEDICARE, OTHER, SELFPAY ==
[2022-02-26 12:23] LABS: Absolute Lymphocyte Count 1.58 X10^3/uL (0.83-4.51); Absolute Neutrophil Count 4.7 X10^3/uL (2.0-7.7); Basophil# 0.05 X10^3/uL; Basophil% 0.7 % (0-1); Eosinophil# 0.16 X10^3/uL; Eosinophils% 2.2 % (0-5); Hematocrit 38.5 % (40-54); Hemoglobin 12.8 g/dL (13.0-16.5); Lymphocyte # 1.58 X10^3/ul (0.83-4.51); Mean Corp Hgb Conc 33.2 g/dL (32-36); Mean Corpuscular Hgb 28.9 pg (27.0-32.0); Mean Corpuscular Volume 86.9 fL (80-94); Mean Platelet Vol. 11.5 fl (6.2-12.0); Monocyte# 0.64 X10^3/uL; Monocyte% 8.9 % (0-10); NRBC Flagged by Analyzer 0 % (0-5); Neutrophil # 4.71 X10^3/uL (2.7-7.7); Neutrophil % 65.8 % (47-70); Platelet Count 173 K/mm3 (150-450); RBC Distribution Width CV 15.5 % (11.6-14.6); RBC Distribution Width SD 48.9 fl (35.1-43.9); Red Blood Count 4.43 M/mm3 (4.6-6.2); White Blood Count 7.2 K/mm3 (4.4-11.0)
[2022-02-26 12:36] LABS: Vitamin D,25 Hydroxy 26.2 ng/mL
[2022-02-26 12:50] LABS: ALB/GLOB Ratio 0.9 RATIO (0.9-2.4); AST(SGOT) 18 U/L (15-37); Alanine Aminotransfer ALT/SGPT 20 U/L (16-61); Albumin, Serum 3.4 g/dL (3.2-5.0); Alkaline Phosphatase 101 U/L (45-117); Anion Gap 5 (5-15); BUN 16 mg/dL (7-18); BUN/Creat Ratio 16.6 RATIO (10-20); Calcium,Total 8.5 mg/dL (8.5-10.1); Chloride 105 mmol/L (98-107); Creatinine, Serum 0.97 mg/dL (0.70-1.30); EST Glomerular Filtration Rate 81 mL/min (>60); Est Glom Filt Rate - Afr Amer 98 mL/min (>60); Globulin 3.6 g/dL (2.2-4.2); Glucose 182 mg/dL (74-106); Potassium 4.5 mmol/L (3.5-5.1); Sodium Level 138 mmol/L (136-145); Thyroid Stim Hormone (TSH) 2.12 uIU/mL (0.358-3.74)
== END | disposition home or self-care (01) ==
LOC: POLAB3 09:44
PROVIDERS: PCP Family Medicine Geriatric Medicine; Visit Provider Family Medicine Geriatric Medicine
DX: E11.65 Type 2 diabetes mellitus with hyperglycemia (principal); E55.9 Vitamin D deficiency, unspecified; R53.83 Other fatigue
CPT/HCPCS: 36415; 80053; 82306; 84443; 85025

== ENCOUNTER → 2022-05-21 | Outpatient (CLI) | payer MEDICARE, OTHER, SELFPAY ==
[2022-05-21 12:25] LABS: Absolute Lymphocyte Count 1.74 X10^3/uL (0.83-4.51); Absolute Neutrophil Count 4.2 X10^3/uL (2.0-7.7); Basophil# 0.05 X10^3/uL; Basophil% 0.7 % (0-1); Eosinophil# 0.16 X10^3/uL; Eosinophils% 2.4 % (0-5); Hematocrit 38.9 % (40-54); Hemoglobin 12.6 g/dL (13.0-16.5); Lymphocyte # 1.74 X10^3/ul (0.83-4.51); Lymphocyte % 25.6 % (19-41); Mean Corp Hgb Conc 32.4 g/dL (32-36); Mean Corpuscular Hgb 28.6 pg (27.0-32.0); Mean Corpuscular Volume 88.2 fL (80-94); Mean Platelet Vol. 10.7 fl (6.2-12.0); Monocyte% 8.8 % (0-10); NRBC Flagged by Analyzer 0 % (0-5); Neutrophil # 4.23 X10^3/uL (2.7-7.7); Neutrophil % 62.2 % (47-70); Platelet Count 174 K/mm3 (150-450); RBC Distribution Width CV 15.1 % (11.6-14.6); RBC Distribution Width SD 48.8 fl (35.1-43.9); Red Blood Count 4.41 M/mm3 (4.6-6.2); White Blood Count 6.8 K/mm3 (4.4-11.0)
[2022-05-21 12:58] LABS: Vitamin D,25 Hydroxy 42.2 ng/mL
[2022-05-21 13:07] LABS: ALB/GLOB Ratio 0.9 RATIO (0.9-2.4); AST(SGOT) 16 U/L (15-37); Alanine Aminotransfer ALT/SGPT 19 U/L (16-61); Albumin, Serum 3.3 g/dL (3.2-5.0); Alkaline Phosphatase 117 U/L (45-117); Anion Gap 6 (5-15); BUN 20 mg/dL (7-18); BUN/Creat Ratio 19.2 RATIO (10-20); Calcium,Total 8.9 mg/dL (8.5-10.1); Chloride 104 mmol/L (98-107); Creatinine, Serum 1.04 mg/dL (0.70-1.30); EST Glomerular Filtration Rate 74 mL/min (>60); Est Glom Filt Rate - Afr Amer 90 mL/min (>60); Globulin 3.6 g/dL (2.2-4.2); Glucose 187 mg/dL (74-106); Potassium 4.5 mmol/L (3.5-5.1); Protein, Total 6.9 g/dL (6.4-8.2); Sodium Level 137 mmol/L (136-145); Thyroid Stim Hormone (TSH) 3.28 uIU/mL (0.358-3.74)
== END | disposition home or self-care (01) ==
LOC: POLAB3 11:38
PROVIDERS: PCP Family Medicine Geriatric Medicine; Visit Provider Family Medicine Geriatric Medicine
DX: E11.65 Type 2 diabetes mellitus with hyperglycemia (principal); E55.9 Vitamin D deficiency, unspecified
CPT/HCPCS: 36415; 80053; 82306; 84443; 85025

== ENCOUNTER 2022-07-03 15:30 | Outpatient (RCR) | payer MEDICARE, OTHER, SELFPAY ==
--- NOTE | 2022-07-03 17:03 | HP.PTEVAL_ITS ---
Patient's Visit Information COLBY RIVERA is a 77 year old M referred to Physical Therapy by Dr. Denilson Sarmiento DPM with a diagnosis of Peripheral neuropathy lower extremity B. Date of Evaluation: 07/03/22 Physical Therapist: MICHAEL Monteiro - Visit Plan Plan: Pt wishes at this time for this eval to be sent to his PCP for review and he would like his neck to be looked at because all we did today was put his neck into extension and that brought on his symptoms among other symptoms. At this point in time the patient signed a release for this eval to go to Dr Pinzon and it will be sent to referring physician as well. Pt feels that his neck needs to be addressed before we address some of his balance issues. - Subjective When pt gets on a stool or a stand and feels like his foot is moving but he looks down and his feet have not moved. He thinks that he has B neuropathy. He loses his balance in the shower when he closes his eyes. He has not fallen at all. No issue on the stair... he is careful going down the stairs. He has been forcing himself to go up and down the stairs recip. He has no pain in his legs or feet. He is borderline DM. His PCP is Dr Pinzon. He has no dizziness. He gets lightheaded sometimes and can lose his breath but he also has A-FIB. He has no trouble walking in the dark or uneven surfaces. He does not do long walks because he gets tired due to A-fib. Pt had a THR on the L and was told that he had a shorter leg and the surgeon left and when he went to a different Dr he said he was not going to make the L leg longer cause he did not feel there was a leg length discrepency. He had wedges in his shoes and that did not solve the problem. - Objective Gait: Walks with increase stance time on the R LE cause the L leg is shorter. LE MMT: R hip flex 10# and L 10.1#, knee ext 19.1# and 19#, and knee flex R 11. 7# and 5.5#. Heel and toe raises: able to walk on heels and toes with some weakness on the L LE. FGA: 23. CATSIB: 95/120. Had patient stand up on 12 inch box and reach overhead with arms and neck extended and he felt the feeling like his feet with sliding forward and backward. Then had the patient stand on the ground with arms overhead and head in extension and he felt the same sliding to a lesser extent. Had the patient sit in a chair and arms overhead and lookin gup and he started to get a CHRISTIANSEN and neck pain and some tingling in his fingers. Had the patient in supine and he volunteered that he can not lay with his neck in neutral or extension and has to keep his head in the position of flexion which he demonstrates to me because it causes increase in dizziness and neck pain and almost like he will pass out and be sick to his stomach. I did put the patient into slight extension for him and he did get a CHRISTIANSEN, dizziness. - Balance/Special Test Scores Functional Gait Assessment Score: 23 % Disability: 23.3400 CATSIB Score (Max score 120 seconds): 95 Lower Extremity Functional Score: 56 - Anticipated Interventions Thank you for the opportunity to evaluate your patient. For Medicare and Medicare HMO plans, please review the plan of care and approve it. It will need to be FAXED BACK to us at [phone] for Medicare purposes. For Medicare only, by signing this I certify the plan of care. Please let me know if there are questions or concerns regarding this plan of care. Physician Signature: Date:
--- NOTE | 2022-10-21 08:43 | HP.PTDCSUM ---
It has been my pleasure to treat COLBY RIVERA referred by Dr. Denilson Sarmiento DPM, with the diagnosis of Peripheral neuropathy lower extremity B for a total of 1 visit(s). Discharge Date: 10/21/22 Please see the following information for a summary of their discharge status. Plan: Pt wishes at this time for this eval to be sent to his PCP for review and he would like his neck to be looked at because all we did today was put his neck into extension and that brought on his symptoms among other symptoms. At this point in time the patient signed a release for this eval to go to Dr Pinzon and it will be sent to referring physician as well. Pt feels that his neck needs to be addressed before we address some of his balance issues. DC PT Discharge Comments: DC PT to [facility] If there are questions or concerns regarding this patient's physical therapy, please feel free to call me at [phone]. Thank you for the referral of this patient. Sincerely, Shelli Quintana, MPT Balance/Gait/Functional tests - Balance/Special Test Scores Functional Gait Assessment Score: 23 % Disability: 23.3400 CATSIB Score (Max score 120 seconds): 95 Lower Extremity Functional Score: 56
== END 2022-07-03 19:00 | disposition home or self-care (01) ==
LOC: PT 15:30
PROVIDERS: PCP Family Medicine Geriatric Medicine; Referring Provider Podiatrist; Visit Provider Podiatrist
DX: G62.9 Polyneuropathy, unspecified (principal)
CPT/HCPCS: 97162

== ENCOUNTER → 2022-08-27 | Outpatient (CLI) | payer MEDICARE, OTHER, SELFPAY ==
[2022-08-27 13:15] LABS: Absolute Lymphocyte Count 1.73 X10^3/uL (0.83-4.51); Absolute Neutrophil Count 4.5 X10^3/uL (2.0-7.7); Basophil# 0.06 X10^3/uL; Basophil% 0.8 % (0-1); Eosinophil# 0.17 X10^3/uL; Eosinophils% 2.4 % (0-5); Hematocrit 40.3 % (40-54); Hemoglobin 12.8 g/dL (13.0-16.5); Lymphocyte # 1.73 X10^3/ul (0.83-4.51); Lymphocyte % 24.5 % (19-41); Mean Corp Hgb Conc 31.8 g/dL (32-36); Mean Corpuscular Volume 88.2 fL (80-94); Mean Platelet Vol. 11.2 fl (6.2-12.0); Monocyte# 0.57 X10^3/uL; Monocyte% 8.1 % (0-10); NRBC Flagged by Analyzer 0 % (0-5); Neutrophil # 4.52 X10^3/uL (2.7-7.7); Neutrophil % 64.1 % (47-70); Platelet Count 186 K/mm3 (150-450); RBC Distribution Width CV 15.7 % (11.6-14.6); RBC Distribution Width SD 50.4 fl (35.1-43.9); Red Blood Count 4.57 M/mm3 (4.6-6.2); White Blood Count 7.1 K/mm3 (4.4-11.0)
[2022-08-27 13:52] LABS: ALB/GLOB Ratio 0.9 RATIO (0.9-2.4); AST(SGOT) 17 U/L (15-37); Alanine Aminotransfer ALT/SGPT 21 U/L (16-61); Albumin, Serum 3.6 g/dL (3.2-5.0); Alkaline Phosphatase 127 U/L (45-117); Anion Gap 7 (5-15); BUN 17 mg/dL (7-18); BUN/Creat Ratio 17.4 RATIO (10-20); Calcium,Total 9.2 mg/dL (8.5-10.1); Chloride 105 mmol/L (98-107); Creatinine, Serum 0.98 mg/dL (0.70-1.30); EST Glomerular Filtration Rate 79 mL/min (>60); Est Glom Filt Rate - Afr Amer 96 mL/min (>60); Globulin 3.8 g/dL (2.2-4.2); Glucose 132 mg/dL (74-106); Potassium 4.2 mmol/L (3.5-5.1); Protein, Total 7.4 g/dL (6.4-8.2); Sodium Level 138 mmol/L (136-145); Thyroid Stim Hormone (TSH) 6.36 uIU/mL (0.358-3.74)
== END | disposition home or self-care (01) ==
LOC: POLAB3 09:35
PROVIDERS: PCP Family Medicine Geriatric Medicine; Visit Provider Family Medicine Geriatric Medicine
DX: E11.65 Type 2 diabetes mellitus with hyperglycemia (principal); E55.9 Vitamin D deficiency, unspecified; R53.83 Other fatigue
CPT/HCPCS: 36415; 80053; 82306; 84443; 85025

== ENCOUNTER → 2022-09-17 | Outpatient (CLI) | payer MEDICARE, OTHER, SELFPAY ==
--- NOTE | 2022-09-17 09:40 | CDU_ITS ---
Reason For Study: Carotid Stenosis Rt. Velocities/BP Lt. Velocities/BP Prox CCA 109.1/11.3 cm/sec. Prox CCA 85.1/21.2 cm/sec. Mid CCA 69.6/11.3 cm/sec. Mid CCA 132.6/19.4 cm/sec. Dist CCA 81.7/16.8 cm/sec. Dist CCA 72.3/12.1 cm/sec. Prox ICA 45.0/11.0 cm/sec. Prox ICA 83.3/17.5 cm/sec. Mid ICA 65.1/17.1 cm/sec. Mid ICA 83.3/23.0 cm/sec. Dist ICA 76.4/22.3 cm/sec. Dist ICA 67.1/17.7 cm/sec. Rt. ICA/CCA = 0.7. Lt. ICA/CCA = 0.6. Prox ECA 68.8/4.0 cm/sec. Prox ECA 112.5/15.7 cm/sec. Rt. Vert. 42.4/12.7 cm/sec. Lt. Vert. 58.1/18.0 cm/sec. Right Extracranial There is intimal thickening but no significant atherosclerotic plaque noted in the right common carotid artery. There is heterogeneous, irregular atherosclerotic plaque noted in the right internal carotid artery. There is homogeneous, irregular atherosclerotic plaque noted in the right external carotid artery. Antegrade flow is noted in the right vertebral artery. Left Extracranial There is heterogeneous, irregular atherosclerotic plaque noted in the left common carotid artery. There is heterogeneous, irregular atherosclerotic plaque noted in the left internal carotid artery. There is heterogeneous, irregular atherosclerotic plaque noted in the left external carotid artery. Antegrade flow is noted in the left vertebral artery. Procedure Carotid Duplex 21286. This is a Carotid Duplex examination using B-mode, color flow and specral Doppler. The exam was diagnostic. Technically difficult study due to patient's labored breathing and involuntary movements. Exam performed in department. VL/Carotid Duplex Ultrasound Interpretation Summary Mild (<50%) stenosis right extracranial internal carotid. Mild (<50%) stenosis left extracranial internal carotid. Patent and antegrade vertebrals bilaterally. Ordering Physician: Ivan Pinzon Chi Referring Physician: Ivan Pinzon Chi Performed By: Saqib Moran RVT
== END | disposition home or self-care (01) ==
LOC: CVS 09:38
PROVIDERS: PCP Family Medicine Geriatric Medicine; Referring Provider Family Medicine Geriatric Medicine; Visit Provider Family Medicine Geriatric Medicine
DX: I65.23 Occlusion and stenosis of bilateral carotid arteries (principal)
CPT/HCPCS: 93880

== ENCOUNTER → 2022-11-26 | Outpatient (CLI) | payer MEDICARE, OTHER, SELFPAY ==
[2022-11-26 13:20] LABS: Absolute Lymphocyte Count 1.29 X10^3/uL (0.83-4.51); Absolute Neutrophil Count 3.4 X10^3/uL (2.0-7.7); Basophil# 0.06 X10^3/uL; Eosinophils% 3.5 % (0-5); Hematocrit 41.9 % (40-54); Hemoglobin 13.5 g/dL (13.0-16.5); Lymphocyte # 1.29 X10^3/ul (0.83-4.51); Lymphocyte % 22.5 % (19-41); Mean Corp Hgb Conc 32.2 g/dL (32-36); Mean Corpuscular Hgb 26.8 pg (27.0-32.0); Mean Corpuscular Volume 83.3 fL (80-94); Mean Platelet Vol. 10.6 fl (6.2-12.0); Monocyte# 0.74 X10^3/uL; Monocyte% 12.9 % (0-10); NRBC Flagged by Analyzer 0 % (0-5); Neutrophil # 3.44 X10^3/uL (2.7-7.7); Neutrophil % 59.9 % (47-70); Platelet Count 184 K/mm3 (150-450); RBC Distribution Width CV 15.8 % (11.6-14.6); RBC Distribution Width SD 47.8 fl (35.1-43.9); Red Blood Count 5.03 M/mm3 (4.6-6.2); White Blood Count 5.7 K/mm3 (4.4-11.0)
[2022-11-26 13:21] LABS: Vitamin D,25 Hydroxy 29.1 ng/mL
[2022-11-26 13:27] LABS: ALB/GLOB Ratio 1.1 RATIO (0.9-2.4); AST(SGOT) 25 U/L (15-37); Alanine Aminotransfer ALT/SGPT 21 U/L (16-61); Albumin, Serum 3.9 g/dL (3.2-5.0); Alkaline Phosphatase 120 U/L (45-117); Anion Gap 7 (5-15); BUN 21 mg/dL (7-18); BUN/Creat Ratio 18.9 RATIO (10-20); Calcium,Total 9.2 mg/dL (8.5-10.1); Chloride 106 mmol/L (98-107); Creatinine, Serum 1.11 mg/dL (0.70-1.30); EST Glomerular Filtration Rate 69 mL/min (>60); Est Glom Filt Rate - Afr Amer 83 mL/min (>60); Globulin 3.7 g/dL (2.2-4.2); Glucose 135 mg/dL (74-106); Potassium 4.5 mmol/L (3.5-5.1); Protein, Total 7.6 g/dL (6.4-8.2); Sodium Level 140 mmol/L (136-145); Thyroid Stim Hormone (TSH) 3.72 uIU/mL (0.358-3.74)
== END | disposition home or self-care (01) ==
LOC: POLAB3 10:19
PROVIDERS: PCP Family Medicine Geriatric Medicine; Visit Provider Family Medicine Geriatric Medicine
DX: E55.9 Vitamin D deficiency, unspecified (principal); R53.83 Other fatigue
CPT/HCPCS: 36415; 80053; 82306; 84443; 85025

== ENCOUNTER → 2023-02-25 | Outpatient (CLI) | payer MEDICARE, OTHER, SELFPAY ==
[2023-02-25 13:21] LABS: Absolute Lymphocyte Count 1.67 X10^3/uL (0.83-4.51); Absolute Neutrophil Count 4.5 X10^3/uL (2.0-7.7); Basophil# 0.04 X10^3/uL; Basophil% 0.6 % (0-1); Eosinophil# 0.16 X10^3/uL; Eosinophils% 2.3 % (0-5); Hematocrit 40.6 % (40-54); Lymphocyte # 1.67 X10^3/ul (0.83-4.51); Lymphocyte % 23.8 % (19-41); Mean Corpuscular Hgb 27.7 pg (27.0-32.0); Mean Corpuscular Volume 86.4 fL (80-94); Mean Platelet Vol. 11.1 fl (6.2-12.0); Monocyte# 0.68 X10^3/uL; Monocyte% 9.7 % (0-10); NRBC Flagged by Analyzer 0 % (0-5); Neutrophil # 4.45 X10^3/uL (2.7-7.7); Neutrophil % 63.3 % (47-70); Platelet Count 163 K/mm3 (150-450); RBC Distribution Width CV 15.8 % (11.6-14.6); RBC Distribution Width SD 49.1 fl (35.1-43.9)
[2023-02-25 13:48] LABS: Vitamin D,25 Hydroxy 43.7 ng/mL
[2023-02-25 13:58] LABS: AST(SGOT) 18 U/L (15-37); Alanine Aminotransfer ALT/SGPT 27 U/L (16-61); Albumin, Serum 3.6 g/dL (3.2-5.0); Alkaline Phosphatase 116 U/L (45-117); Anion Gap 5 (5-15); BUN 19 mg/dL (7-18); Calcium,Total 9.2 mg/dL (8.5-10.1); Chloride 106 mmol/L (98-107); Creatinine, Serum 0.95 mg/dL (0.70-1.30); EST Glomerular Filtration Rate 82 mL/min (>60); Est Glom Filt Rate - Afr Amer 99 mL/min (>60); Globulin 3.7 g/dL (2.2-4.2); Glucose 179 mg/dL (74-106); Potassium 4.2 mmol/L (3.5-5.1); Protein, Total 7.3 g/dL (6.4-8.2); Sodium Level 137 mmol/L (136-145); Thyroid Stim Hormone (TSH) 5.43 uIU/mL (0.358-3.74)
== END | disposition home or self-care (01) ==
LOC: POLAB3 10:38
PROVIDERS: PCP Family Medicine Geriatric Medicine; Visit Provider Family Medicine Geriatric Medicine
DX: E11.65 Type 2 diabetes mellitus with hyperglycemia (principal); R53.83 Other fatigue; E55.9 Vitamin D deficiency, unspecified
CPT/HCPCS: 36415; 80053; 82306; 84443; 85025

== ENCOUNTER → 2023-04-08 | Outpatient (CLI) | payer MEDICARE, OTHER, SELFPAY ==
[2023-04-08 14:59] LABS: Thyroid Stim Hormone (TSH) 2.84 uIU/mL (0.358-3.74)
== END | disposition home or self-care (01) ==
LOC: LAB.FUTURE 13:33
PROVIDERS: PCP Family Medicine Geriatric Medicine; Referring Provider Family Medicine Geriatric Medicine; Visit Provider Family Medicine Geriatric Medicine
DX: E03.9 Hypothyroidism, unspecified (principal)
CPT/HCPCS: 36415; 84443

== ENCOUNTER → 2023-05-27 | Outpatient (CLI) | payer MEDICARE, OTHER, SELFPAY ==
[2023-05-27 12:33] LABS: Absolute Lymphocyte Count 1.51 X10^3/uL (0.83-4.51); Absolute Neutrophil Count 4.6 X10^3/uL (2.0-7.7); Basophil# 0.06 X10^3/uL; Basophil% 0.9 % (0-1); Eosinophil# 0.14 X10^3/uL; Hematocrit 39.1 % (40-54); Hemoglobin 12.4 g/dL (13.0-16.5); Lymphocyte # 1.51 X10^3/ul (0.83-4.51); Lymphocyte % 21.8 % (19-41); Mean Corp Hgb Conc 31.7 g/dL (32-36); Mean Corpuscular Hgb 27.4 pg (27.0-32.0); Mean Corpuscular Volume 86.5 fL (80-94); Mean Platelet Vol. 11.1 fl (6.2-12.0); Monocyte# 0.56 X10^3/uL; Monocyte% 8.1 % (0-10); NRBC Flagged by Analyzer 0 % (0-5); Neutrophil # 4.61 X10^3/uL (2.7-7.7); Neutrophil % 66.6 % (47-70); Platelet Count 169 K/mm3 (150-450); RBC Distribution Width CV 15.9 % (11.6-14.6); RBC Distribution Width SD 49.7 fl (35.1-43.9); Red Blood Count 4.52 M/mm3 (4.6-6.2); White Blood Count 6.9 K/mm3 (4.4-11.0)
[2023-05-27 12:45] LABS: Vitamin D,25 Hydroxy 30.9 ng/mL
[2023-05-27 12:53] LABS: AST(SGOT) 20 U/L (15-37); Alanine Aminotransfer ALT/SGPT 26 U/L (16-61); Albumin, Serum 3.5 g/dL (3.2-5.0); Alkaline Phosphatase 120 U/L (45-117); Anion Gap 7 (5-15); BUN 21 mg/dL (7-18); BUN/Creat Ratio 18.6 RATIO (10-20); Calcium,Total 8.8 mg/dL (8.5-10.1); Chloride 103 mmol/L (98-107); Creatinine, Serum 1.13 mg/dL (0.70-1.30); EST Glomerular Filtration Rate 67 mL/min (>60); Est Glom Filt Rate - Afr Amer 81 mL/min (>60); Globulin 3.5 g/dL (2.2-4.2); Glucose 338 mg/dL (74-106); Potassium 4.3 mmol/L (3.5-5.1); Sodium Level 134 mmol/L (136-145); Thyroid Stim Hormone (TSH) 3.25 uIU/mL (0.358-3.74)
== END | disposition home or self-care (01) ==
PROVIDERS: PCP Family Medicine Geriatric Medicine; Visit Provider Family Medicine Geriatric Medicine
DX: E11.65 Type 2 diabetes mellitus with hyperglycemia (principal); E55.9 Vitamin D deficiency, unspecified; R53.83 Other fatigue
CPT/HCPCS: 36415; 80053; 82306; 84443; 85025

== ENCOUNTER → 2023-09-02 | Outpatient (CLI) | payer MEDICARE, OTHER, SELFPAY ==
[2023-09-02 14:05] LABS: Absolute Lymphocyte Count 1.11 X10^3/uL (0.83-4.51); Absolute Neutrophil Count 4.2 X10^3/uL (2.0-7.7); Basophil# 0.06 X10^3/uL; Eosinophil# 0.13 X10^3/uL; Eosinophils% 2.1 % (0-5); Hematocrit 33.1 % (40-54); Hemoglobin 10.2 g/dL (13.0-16.5); Lymphocyte # 1.11 X10^3/ul (0.83-4.51); Mean Corp Hgb Conc 30.8 g/dL (32-36); Mean Corpuscular Hgb 26.2 pg (27.0-32.0); Mean Corpuscular Volume 85.1 fL (80-94); Mean Platelet Vol. 10.7 fl (6.2-12.0); Monocyte# 0.64 X10^3/uL; Monocyte% 10.4 % (0-10); NRBC Flagged by Analyzer 0 % (0-5); Neutrophil % 68.2 % (47-70); Platelet Count 173 K/mm3 (150-450); RBC Distribution Width CV 15.9 % (11.6-14.6); RBC Distribution Width SD 48.4 fl (35.1-43.9); Red Blood Count 3.89 M/mm3 (4.6-6.2); White Blood Count 6.2 K/mm3 (4.4-11.0)
--- NOTE | 2023-09-02 14:20 | RAD_ITS ---
STUDY: X-RAY CHEST REASON FOR EXAM: Male, 78 years old. SOB TECHNIQUE: Frontal and lateral views of the chest. COMPARISON: None. FINDINGS: The lungs are clear and expanded. There is no demonstrated pleural abnormality. Normal size heart. Normal mediastinum and jules. Normal visualized pulmonary arteries. Normal visualized aortic arch and descending thoracic aorta. There are diffuse degenerative changes of the visualized thoracic spine. Normal visualized ribs, clavicles, and shoulders. There is no demonstrated abnormality of the visualized soft tissue structures of the upper abdomen. RAD/Chest PA and Lateral IMPRESSION: No definite acute or significant abnormality seen. Electronically Signed: Shiva Conrad MD at 22:15 EDT ,
[2023-09-02 14:28] LABS: ALB/GLOB Ratio 0.8 RATIO (0.9-2.4); AST(SGOT) 15 U/L (15-37); Alanine Aminotransfer ALT/SGPT 18 U/L (16-61); Albumin, Serum 3.2 g/dL (3.2-5.0); Alkaline Phosphatase 121 U/L (45-117); Anion Gap 2 (5-15); BUN 18 mg/dL (7-18); BUN/Creat Ratio 19.2 RATIO (10-20); Calcium,Total 8.6 mg/dL (8.5-10.1); Chloride 108 mmol/L (98-107); Creatinine, Serum 0.94 mg/dL (0.70-1.30); EST Glomerular Filtration Rate 83 mL/min (>60); Est Glom Filt Rate - Afr Amer 101 mL/min (>60); Globulin 3.8 g/dL (2.2-4.2); Glucose 206 mg/dL (74-106); Sodium Level 136 mmol/L (136-145); Thyroid Stim Hormone (TSH) 4.35 uIU/mL (0.358-3.74)
[2023-09-02 15:26] LABS: BNP,B-Type NATRIURETIC PEPTIDE 184.9 pg/mL (0-100)
== END | disposition home or self-care (01) ==
PROVIDERS: PCP Family Medicine Geriatric Medicine; Visit Provider Family Medicine Geriatric Medicine
DX: E11.65 Type 2 diabetes mellitus with hyperglycemia (principal); E55.9 Vitamin D deficiency, unspecified; R53.83 Other fatigue; R06.02 Shortness of breath
CPT/HCPCS: 36415; 71046; 80053; 82306; 83880; 84443; 85025

== ENCOUNTER → 2023-09-04 | Outpatient (CLI) | payer MEDICARE, OTHER, SELFPAY ==
[2023-09-04 17:48] LABS: Absolute Lymphocyte Count 0.97 X10^3/uL (0.83-4.51); Absolute Neutrophil Count 6.5 X10^3/uL (2.0-7.7); Basophil# 0.07 X10^3/uL; Basophil% 0.8 % (0-1); Eosinophil# 0.09 X10^3/uL; Eosinophils% 1.1 % (0-5); Hematocrit 33.2 % (40-54); Hemoglobin 10.1 g/dL (13.0-16.5); Lymphocyte # 0.97 X10^3/ul (0.83-4.51); Lymphocyte % 11.4 % (19-41); Mean Corp Hgb Conc 30.4 g/dL (32-36); Mean Corpuscular Hgb 25.9 pg (27.0-32.0); Mean Corpuscular Volume 85.1 fL (80-94); Mean Platelet Vol. 10.8 fl (6.2-12.0); Monocyte# 0.88 X10^3/uL; Monocyte% 10.4 % (0-10); NRBC Flagged by Analyzer 0 % (0-5); Neutrophil # 6.45 X10^3/uL (2.7-7.7); Neutrophil % 75.8 % (47-70); Platelet Count 173 K/mm3 (150-450); RBC Distribution Width SD 48.7 fl (35.1-43.9); RET-HE 24.8 pg (30-35); Reticulocyte Count 3.58 % (0.5-1.5); White Blood Count 8.5 K/mm3 (4.4-11.0)
[2023-09-04 18:17] LABS: Vitamin B12 217 pg/mL (211-911)
[2023-09-04 18:30] LABS: Ferritin 45 ng/mL (26-388); Iron 38 ug/dL (65-175); Iron Binding Capacity,Total 390 ug/dL (250-450); PERCENT IRON SATURATION 9.7 % (15.0-55.0)
== END | disposition home or self-care (01) ==
LOC: POLAB3 13:44
PROVIDERS: PCP Family Medicine Geriatric Medicine; Visit Provider Family Medicine Geriatric Medicine
DX: D64.9 Anemia, unspecified (principal)
CPT/HCPCS: 36415; 82607; 82728; 82746; 83540; 83550; 85025; 85045

== ENCOUNTER → 2023-09-05 | Outpatient (CLI) | payer MEDICARE, OTHER, SELFPAY | END | disposition home or self-care (01) | LOC: LABSPEC 08:02 | PROVIDERS: PCP Family Medicine Geriatric Medicine; Referring Provider Family Medicine Geriatric Medicine; Visit Provider Family Medicine Geriatric Medicine | DX: D64.9 Anemia, unspecified (principal) | CPT/HCPCS: 82274 ==

== ENCOUNTER 2023-09-15 09:44 | Emergency (ER) | payer MEDICARE, OTHER, SELFPAY ==
[2023-09-15 09:45] VITALS: BP 123/56; PULSE 56; RESP 20; TEMP 36.9; O2SAT 99; BMI 35.9
[2023-09-15 09:48] VITALS: BP 146/71; PULSE 97; RESP 25; TEMP 37.2; O2SAT 95
--- NOTE | 2023-09-15 10:12 | EDS_ITS ---
HPI History of Present Illness Chief Complaint: Shortness of Breath Informant: patient and family Onset/Context/Timing Onset: Month(s) Context: gradual Timing: Intermittent Quality: Positive for Dyspnea on exertion and Orthopnea Current Severity: Mild Maximum Severity: Mild Worsened by: Exertion and Lying flat Relieved by: Rest Associated Symptoms Negative for fever Chest Pain: Positive for None Narrative Narrative: 78-year-old male history of high cholesterol and A-fib for which she is on Coumadin. Said he has been increasingly short of breath in the last 2 months. Worsening over the last several days. He does have leg swelling. He denies any chest pain or fever. He denies any significant cough but he does have a chronic cough. No hemoptysis. No melena. Recently saw his primary care physician and states that he has been developing an anemia with negative Hemoccult stool. PE Risk Factors: Negative for Cancer, OCP + Smoking + > 35, Prior DVT or PE, Recent immobilization, Recent surgery or Recent travel Prior similar symptoms: Yes Recent Illness/Hospitalization: No PFSH PFSH Medical History (Updated 09/15/23 @ 10:[address] Jack Nathan MD) Atrial fibrillation History of migraine Seasonal allergies Home Medications atorvastatin 40 mg tablet 40 mg PO DAILY 10/22/19 [History Last Taken Unknown] warfarin 5 mg tablet 4 mg PO DAILY 10/22/19 [History Last Taken Unknown] metformin 1,000 mg tablet 1,000 mg PO DAILY 06/29/20 [History Last Taken Unknown] pioglitazone 30 mg tablet mg PO 06/29/20 [History Last Taken Unknown] insulin glargine 100 unit-lixisenatide 33 mcg/mL subcutaneous pen (Soliqua 100/33) ml subcut 07/22/22 [History Last Taken Unknown] levothyroxine 112 mcg tablet 112 mcg PO DAILY 07/22/22 [History Last Taken Unknown] lisinopril 2.5 mg tablet 2.5 mg PO DAILY 07/22/22 [History Last Taken Unknown] Allergy/AdvReac Type Severity Reaction Status Date / Time alcohol AdvReac LIVER Verified 09/15/23 09:44 ISSUES Sulfa (Sulfonamide AdvReac Other Verified 09/15/23 09:44 Antibiotics) Surgical History History of bilateral total hip arthroplasty History of knee surgery Social History Smoking Status: Never smoker ROS ROS ED ROS Narrative Shortness of breath. Orthopnea. Exertional dyspnea. No chest pain. No fever. No new cough. Swelling. Review of Systems ROS Unobtainable: Denies due to encephalopathy Constitutional Constitutional ED: Denies chills or fever(s) Eyes Eyes: Denies blurry vision ENT ENT ED: Denies ear pain Cardiovascular Cardiovascular: Reports orthopnea; Denies chest pain Respiratory/Chest Respiratory/Chest: Reports cough, dyspnea, dyspnea on exertion and orthopnea Gastrointestinal Gastrointestinal: Denies abdominal pain Genitourinary Genitourinary ED: Denies dysuria or hematuria Musculoskeletal Musculoskeletal: Denies arthralgias Integumentary Denies abscess Neurologic Neurologic: Denies headache(s) Psychiatric Psychiatric: Denies anxiety Endocrine Endocrinology: Denies cold intolerance Hematologic/Lymphatic Hematologic/Lymphatic: Reports easy bleeding; Denies easy bruising Allergic/Immunologic Allergic/Immunologic ED: Denies mouth swelling EXAM Physical Exam Narrative Exam Narrative: 78-year-old male vital signs are stable and afebrile. Pulse ox is 95% on room air no signs of hypoxia. He is obviously in A-fib with a controlled rate on the monitor. Patient has PVCs. H EENT exam unremarkable. Neck nontender no JVD. No lymphadenopathy. Lungs. 7 Clear to auscultation bilaterally. Heart has A- fib rate in the 90s. PVCs. No murmur. Abdomen soft nontender normal bowel sounds no peritoneal signs. Moving all 4 extremities. 1+ pitting edema both lower extremities equal symmetrical. Calves are nontender without cords. Neurologically is awake and alert with no focal motor deficits. Const Vital Signs: 09/15/23 09:45 09/15/23 09:48 09/15/23 09:48 Temperature 98.4 F 98.9 F Temperature Source Temporal Temporal Pulse Rate 56 L 97 Respiratory Rate 20 H 25 H Respiratory Effort Short of Breath Respiratory Depth Normal Respiratory Pattern Tachypnea Blood Pressure 123/56 H 146/71 H Blood Pressure Mean 78 96 Pulse Ox 99 95 Oxygen Delivery Method Room Air Room Air Room Air 09/15/23 10:16 Temperature Temperature Source Pulse Rate Respiratory Rate Respiratory Effort Respiratory Depth Respiratory Pattern Blood Pressure Blood Pressure Mean Pulse Ox Oxygen Delivery Method Room Air Positive well nourished and well developed; Negative for obese, cachectic, contractures or unkempt General Appearance ED: well developed and NAD; Negative for unkempt, cachectic, contractures or pallor Nutritional Appearance: Negative for cachectic or obese HEENT Reports moist mucous membranes atraumatic; Negative for trauma or tenderness Eyes PERRL and EOMs intact bilaterally General Eye ED: Negative for pale conjunctiva or scleral icterus Neck no lymphadenopathy, supple, no meningeal signs and no JVD General: Negative for tenderness Lymph Lymphatic: Negative for other Chest Wall Chest: Negative for other Resp normal respiratory effort and clear to auscultation bilaterally Effort and Inspection: Negative for pain with movement Auscultation: Negative for rales, rhonchi or wheezes Cardio Negative for regular rate or regular rhythm Cardio Narrative: A-fib rate in the 90s with PVCs. Rhythm: abnormal rhythm GI non-tender, non-distended and no masses Inspection: Negative for other Auscultation: normoactive bowel sounds Palpation: soft; Negative for tender or guarding Back/Spine no CVA tenderness and normal to inspection General Back: Negative for CVA tenderness Extremity Negative for normal to inspection Extremity Narrative: 1+ pitting edema both lower extremities. Nontender. General Extremety ED: Yes edema; Negative for tenderness General Extremity: edema Neuro oriented x3 and CN's II-XII intact bilaterally Sensorium / Orientation: alert, oriented to person, oriented to place and oriented to time; Negative for orientation impaired, confused, lethargic or stuporous Motor Exam: strength 5/5 throughout Psych mental status grossly normal Appearance: Negative for unkempt Attitude: No agitated Mood & Affect: Negative for depressed Thought Process: normal thought process Skin no wounds and skin turgor normal General Skin Exam: Negative for jaundice or pallor Lesions: no lesions Rashes: no rashes Trauma: Negative for abrasion or laceration MDM MDM MDM Narrative Medical decision making narrative: 78-year-old male with shortness of breath that may be from his A-fib versus CHF versus anemia or combination of the above. Undergo cardiac work-up. Repeat exam patient is doing well at 12:05 PM. Had a discussion with he and his daughter. He has multiple animals he cares for at home he does not want to be admitted. He will be started on Lasix 40 mg a day for the next 10 days. I have his primary care physician on page to discuss with him outpatient follow-up. Patient knows to return if worse. Lab Data Attestation: I reviewed the patient's lab results. Lab results narrative: CBC shows a white count 9.1. H&H 9.2 and 30.7. Platelets 197. PT/INR 32 and 3.2. Electrolytes show gap of 5. BUN and creatinine 22 and 0.9. Glucose 224. Troponin is 32. BNP is 295. Chest x-ray is mild vascular congestion Labs: Laboratory Results - last 24 hr 09/15/23 09:59 WBC 9.1 RBC 3.62 L Hgb 9.2 L Hct 30.7 L MCV 84.8 MCH 25.4 L MCHC 30.0 L RDW Std Deviation 50.3 H RDW Coeff of Cooper 16.3 H Plt Count 197 MPV 10.4 Immature Gran % (Auto) 0.400 Neut % (Auto) 79.2 H Lymph % (Auto) 12.6 L [place] % (Auto) 5.9 Eos % (Auto) 1.1 Baso % (Auto) 0.8 Absolute Neuts (auto) 7.2 Absolute Lymphs (auto) 1.15 Nucleated RBC % 0 PT 32.9 H INR 3.2 Sodium 138 Potassium 4.2 Chloride 106 Carbon Dioxide 27.0 Anion Gap 5 BUN 22 H Creatinine 0.99 Estim Creat Clear Calc 63.48 Est GFR (MDRD) Af Amer 94 Est GFR (MDRD) Non-Af 78 BUN/Creatinine Ratio 22.2 H Glucose 224 H Calcium 8.8 Troponin I High Sens 32 B-Natriuretic Peptide 295.8 H Radiography Chest X-Ray - ED: 1 View, Read by ED Physician, Heart, Mediastinum, Bony Structures and Chronic Changes Diagnostic Testing: Clinical Impression(s) from Imaging Studies Chest X-Ray 09/15/23 10:31 IMPRESSION: Cardiomegaly. Mild degree of vascular congestion. Electronically Signed: Angel Gilbert MD at 10:48 EST , X-ray, portable, single view interpreted by myself and radiologist shows cardiomegaly. Vascular congestion consistent with mild CHF. Otherwise no acute abnormalities. No pneumonia. No effusions. Rhythm Strip Rhythm Strip: A-fib Rate: 93 Ectopy: PVC(s) EKG Initial EKG: Attestation: I personally reviewed and interpreted this EKG as follows: Interpretation: No Acute Injury Pattern and Atrial Fibrillation Comments: A-fib rate of 93 with PVCs. No acute WI or ischemia. Prior EKG tracings: available for review Prior: Unchanged Discharge Plan Dx/Rx/DC Orders Clinical Impression: Acute dyspnea, Congestive heart failure, Anemia, Chronic anticoagulation, Chronic a-fib Disposition Disposition: Acute Care Hospital [facility]
--- NOTE | 2023-09-15 10:15 | EKG12_ITS ---
Test Reason : SOB Blood Pressure : / mmHG Vent. Rate : 093 BPM Atrial Rate : 000 BPM P-R Int : 000 ms QRS Dur : 088 ms QT Int : 372 ms P-R-T Axes : 000 018 -08 degrees QTc Int : 462 ms Atrial fibrillation with premature ventricular or aberrantly conducted complexes Nonspecific ST abnormality Abnormal ECG Confirmed by ALBERT NEWMAN, ASHLEY ([id number]), continuity editor FEDERICO MCHUGH ([id number]) on 09/24/2023 9:42:10 AM Referred By: LICHA/NANY Confirmed By:ASHLEY PRICE MD
[2023-09-15 10:17] LABS: Absolute Lymphocyte Count 1.15 X10^3/uL (0.83-4.51); Absolute Neutrophil Count 7.2 X10^3/uL (2.0-7.7); Basophil# 0.07 X10^3/uL; Basophil% 0.8 % (0-1); Eosinophils% 1.1 % (0-5); Hematocrit 30.7 % (40-54); Hemoglobin 9.2 g/dL (13.0-16.5); Lymphocyte # 1.15 X10^3/ul (0.83-4.51); Lymphocyte % 12.6 % (19-41); Mean Corpuscular Hgb 25.4 pg (27.0-32.0); Mean Corpuscular Volume 84.8 fL (80-94); Mean Platelet Vol. 10.4 fl (6.2-12.0); Monocyte# 0.54 X10^3/uL; Monocyte% 5.9 % (0-10); NRBC Flagged by Analyzer 0 % (0-5); Neutrophil # 7.24 X10^3/uL (2.7-7.7); Neutrophil % 79.2 % (47-70); Platelet Count 197 K/mm3 (150-450); RBC Distribution Width CV 16.3 % (11.6-14.6); RBC Distribution Width SD 50.3 fl (35.1-43.9); Red Blood Count 3.62 M/mm3 (4.6-6.2); White Blood Count 9.1 K/mm3 (4.4-11.0)
--- NOTE | 2023-09-15 10:31 | RAD_ITS ---
STUDY: X-RAY CHEST REASON FOR EXAM: Male, 78 years old. One month history of shortness of breath. Dizziness. TECHNIQUE: Single AP portable view of the chest. COMPARISON: Comparison is made with prior study dated September 02, 2023. FINDINGS: EKG electrodes are seen. Mild vascular congestion. There is no demonstrated pleural abnormality. There is moderate cardiac enlargement. Normal mediastinum and jules. Normal visualized pulmonary arteries. Normal visualized aortic arch and descending thoracic aorta. There are degenerative changes of the visualized thoracic spine. There is degenerative osteoarthritis of the bilateral shoulders. There is no demonstrated abnormality of the visualized soft tissue structures of the upper abdomen. RAD/Chest 1 View (Portable) IMPRESSION: Cardiomegaly. Mild degree of vascular congestion. Electronically Signed: Angel Gilbert MD at 10:48 EST ,
[2023-09-15 10:33] LABS: International Normalized Ratio 3.2; Prothrombin Time (Protime)PT. 32.9 SECONDS (11.7-14.9)
[2023-09-15 10:34] LABS: Anion Gap 5 (5-15); BUN 22 mg/dL (7-18); BUN/Creat Ratio 22.2 RATIO (10-20); Calcium,Total 8.8 mg/dL (8.5-10.1); Chloride 106 mmol/L (98-107); Creatinine, Serum 0.99 mg/dL (0.70-1.30); EST Glomerular Filtration Rate 78 mL/min (>60); Est Glom Filt Rate - Afr Amer 94 mL/min (>60); Estimated Creatinine Clearance 63.48 ml/min; Glucose 224 mg/dL (74-106); Potassium 4.2 mmol/L (3.5-5.1); Sodium Level 138 mmol/L (136-145); Troponin-I HS 32 pg/mL (3.0-78.0)
[2023-09-15 10:44] VITALS: RESP 18
[2023-09-15 10:47] LABS: BNP,B-Type NATRIURETIC PEPTIDE 295.8 pg/mL (0-100)
[2023-09-15 11:44] VITALS: BP 150/74; PULSE 88; RESP 23; O2SAT 96
[2023-09-15 12:00] VITALS: RESP 22
[2023-09-15] MEDS: Furosemide 40 MG Tablet PO (12:15)
== END 2023-09-15 12:34 | disposition home or self-care (01) ==
PROVIDERS: Emergency Provider Emergency Medicine; PCP Family Medicine Geriatric Medicine; Visit Provider Emergency Medicine
DX: R06.00 Dyspnea, unspecified (principal); I50.9 Heart failure, unspecified; I48.20 Chronic atrial fibrillation, unspecified; Z79.01 Long term (current) use of anticoagulants
CPT/HCPCS: 71045; 80048; 83880; 84484; 85025; 85610; 93005; 99284

== ENCOUNTER → 2023-09-19 | Outpatient (CLI) | payer MEDICARE, OTHER, SELFPAY ==
--- NOTE | 2023-09-19 10:58 | CT_ITS ---
STUDY: CTA CHEST REASON FOR EXAM: Male, 78 years old. SOB RADIATION DOSAGE (If Supplied By Facility): CTDIvol = ( 12.66 ) mGy, DLP = ( 566.66 ) mGycm TECHNIQUE: The examination was performed with the intravenous administration of IV 100mL Isovue-370. Post-processing of the angiographic images was performed, with multiplanar reformation and 3D reconstruction. Individualized dose optimization techniques were used for this CT. COMPARISON: Comparison is made with prior chest radiograph dated September 15, 2023. FINDINGS: Normal enhancement of the main pulmonary artery and right and left pulmonary arteries. Normal enhancement of the bilateral peripheral pulmonary arteries. There is no demonstrated pulmonary embolism. There is atherosclerotic calcification of the aortic arch with tortuosity. There is no demonstrated aortic dissection. There are calcifications of the coronary arteries. There are visualized mediastinal lymph nodes, which are within normal size limits, and with normal morphology. Normal hilar regions. Normal visualized trachea and bronchi. The lungs are well expanded. Mild bibasilar atelectasis. Small bilateral pleural effusions slightly more prominent on the right side. Normal chest wall structures. There are degenerative changes of thoracic spine. Small hiatal hernia. CT/CTA Chest W/WO Contrast IMPRESSION: Small bilateral pleural effusions with bibasilar atelectasis more prominent on the right side. Electronically Signed: Angel Gilbert MD at 12:08 [facility] ,
== END | disposition home or self-care (01) ==
PROVIDERS: PCP Family Medicine Geriatric Medicine; Referring Provider Family Medicine Geriatric Medicine; Visit Provider Family Medicine Geriatric Medicine
DX: R06.02 Shortness of breath (principal)
CPT/HCPCS: 71275; Q9967

== ENCOUNTER → 2023-09-19 | Outpatient (CLI) | payer MEDICARE, OTHER, SELFPAY ==
[2023-09-19 11:26] LABS: Absolute Lymphocyte Count 1.28 X10^3/uL (0.83-4.51); Absolute Neutrophil Count 5.5 X10^3/uL (2.0-7.7); Basophil# 0.09 X10^3/uL; Basophil% 1.2 % (0-1); Eosinophil# 0.15 X10^3/uL; Hematocrit 29.5 % (40-54); Hemoglobin 8.4 g/dL (13.0-16.5); Lymphocyte # 1.28 X10^3/ul (0.83-4.51); Lymphocyte % 16.8 % (19-41); Mean Corp Hgb Conc 28.5 g/dL (32-36); Mean Corpuscular Hgb 24.6 pg (27.0-32.0); Mean Corpuscular Volume 86.3 fL (80-94); Mean Platelet Vol. 10.5 fl (6.2-12.0); Monocyte# 0.59 X10^3/uL; Monocyte% 7.7 % (0-10); NRBC Flagged by Analyzer 0 % (0-5); Neutrophil # 5.48 X10^3/uL (2.7-7.7); Neutrophil % 71.8 % (47-70); Platelet Count 185 K/mm3 (150-450); RBC Distribution Width CV 16.4 % (11.6-14.6); RBC Distribution Width SD 50.5 fl (35.1-43.9); Red Blood Count 3.42 M/mm3 (4.6-6.2); White Blood Count 7.6 K/mm3 (4.4-11.0)
[2023-09-19 11:42] LABS: Anion Gap 7 (5-15); BUN 21 mg/dL (7-18); BUN/Creat Ratio 21.3 RATIO (10-20); CPK Total, Creatine Kinase 95 U/L (39-308); Calcium,Total 8.8 mg/dL (8.5-10.1); Chloride 108 mmol/L (98-107); Creatinine, Serum 0.99 mg/dL (0.70-1.30); EST Glomerular Filtration Rate 78 mL/min (>60); Est Glom Filt Rate - Afr Amer 95 mL/min (>60); Glucose 307 mg/dL (74-106); Potassium 4.7 mmol/L (3.5-5.1); Sodium Level 140 mmol/L (136-145); Troponin-I HS 26 pg/mL (3.0-78.0)
[2023-09-19 12:15] LABS: BNP,B-Type NATRIURETIC PEPTIDE 191.2 pg/mL (0-100)
[2023-09-20 05:07] LABS: Myoglobin, Serum 44 ng/mL (28-72)
== END | disposition home or self-care (01) ==
LOC: POLAB3 10:41
PROVIDERS: PCP Family Medicine Geriatric Medicine; Visit Provider Family Medicine Geriatric Medicine
DX: I50.9 Heart failure, unspecified (principal); R06.02 Shortness of breath
CPT/HCPCS: 36415; 80048; 82550; 83874; 83880; 84484; 85025

== ENCOUNTER → 2023-09-22 | Outpatient (CLI) | payer MEDICARE, OTHER, SELFPAY ==
[2023-09-22 11:18] LABS: Absolute Lymphocyte Count 1.45 X10^3/uL (0.83-4.51); Absolute Neutrophil Count 4.2 X10^3/uL (2.0-7.7); Basophil# 0.07 X10^3/uL; Basophil% 1.1 % (0-1); Eosinophil# 0.15 X10^3/uL; Eosinophils% 2.3 % (0-5); Hematocrit 32.6 % (40-54); Hemoglobin 9.8 g/dL (13.0-16.5); Lymphocyte # 1.45 X10^3/ul (0.83-4.51); Mean Corp Hgb Conc 30.1 g/dL (32-36); Mean Corpuscular Hgb 25.1 pg (27.0-32.0); Mean Corpuscular Volume 83.4 fL (80-94); Mean Platelet Vol. 10.4 fl (6.2-12.0); Monocyte# 0.68 X10^3/uL; Monocyte% 10.3 % (0-10); NRBC Flagged by Analyzer 0 % (0-5); Neutrophil # 4.22 X10^3/uL (2.7-7.7); Neutrophil % 64.1 % (47-70); Platelet Count 229 K/mm3 (150-450); RBC Distribution Width CV 16.5 % (11.6-14.6); RBC Distribution Width SD 49.5 fl (35.1-43.9); Red Blood Count 3.91 M/mm3 (4.6-6.2); White Blood Count 6.6 K/mm3 (4.4-11.0)
[2023-09-22 11:26] LABS: Anion Gap 7 (5-15); BUN 25 mg/dL (7-18); BUN/Creat Ratio 19.8 RATIO (10-20); Chloride 101 mmol/L (98-107); Creatinine, Serum 1.26 mg/dL (0.70-1.30); EST Glomerular Filtration Rate 59 mL/min (>60); Est Glom Filt Rate - Afr Amer 72 mL/min (>60); Glucose 234 mg/dL (74-106); Magnesium 2.1 mg/dL (1.6-2.6); Potassium 4.1 mmol/L (3.5-5.1); Sodium Level 139 mmol/L (136-145)
[2023-09-23 16:38] LABS: CRP 6.85 mg/L (0.0-3.0)
[2023-09-23 16:51] LABS: Ferritin 32 ng/mL (26-388); Iron 28 ug/dL (65-175); Iron Binding Capacity,Total 403 ug/dL (250-450); PERCENT IRON SATURATION 6.9 % (15.0-55.0); Phosphorus 4.1 mg/dL (2.5-4.9)
== END | disposition home or self-care (01) ==
LOC: POLAB3 10:08
PROVIDERS: Internal Medicine Medical Oncology; PCP Family Medicine Geriatric Medicine; Visit Provider Family Medicine Geriatric Medicine
DX: I50.9 Heart failure, unspecified (principal); D50.9 Iron deficiency anemia, unspecified
CPT/HCPCS: 36415; 80048; 82728; 83540; 83550; 83735; 84100; 85025; 86140

== ENCOUNTER → 2023-09-29 | Outpatient (CLI) | payer MEDICARE, OTHER, SELFPAY ==
[2023-09-29 13:39] LABS: Absolute Lymphocyte Count 1.42 X10^3/uL (0.83-4.51); Absolute Neutrophil Count 3.7 X10^3/uL (2.0-7.7); Basophil# 0.09 X10^3/uL; Basophil% 1.5 % (0-1); Eosinophils% 3.4 % (0-5); Hematocrit 34.2 % (40-54); Hemoglobin 9.9 g/dL (13.0-16.5); Lymphocyte # 1.42 X10^3/ul (0.83-4.51); Lymphocyte % 23.8 % (19-41); Mean Corp Hgb Conc 28.9 g/dL (32-36); Mean Corpuscular Hgb 23.9 pg (27.0-32.0); Mean Corpuscular Volume 82.4 fL (80-94); Mean Platelet Vol. 10.5 fl (6.2-12.0); Monocyte# 0.54 X10^3/uL; Monocyte% 9.1 % (0-10); NRBC Flagged by Analyzer 0 % (0-5); Neutrophil # 3.69 X10^3/uL (2.7-7.7); Neutrophil % 61.9 % (47-70); Platelet Count 210 K/mm3 (150-450); RBC Distribution Width CV 15.9 % (11.6-14.6); RBC Distribution Width SD 47.9 fl (35.1-43.9); Red Blood Count 4.15 M/mm3 (4.6-6.2)
[2023-09-29 13:56] LABS: Anion Gap 9 (5-15); BUN 25 mg/dL (7-18); BUN/Creat Ratio 20.7 RATIO (10-20); Calcium,Total 8.7 mg/dL (8.5-10.1); Chloride 102 mmol/L (98-107); Creatinine, Serum 1.21 mg/dL (0.70-1.30); EST Glomerular Filtration Rate 62 mL/min (>60); Est Glom Filt Rate - Afr Amer 75 mL/min (>60); Glucose 369 mg/dL (74-106); Potassium 4.7 mmol/L (3.5-5.1); Sodium Level 136 mmol/L (136-145)
[2023-09-29 14:03] LABS: Hemoglobin A1c 8.2 % (3.8-5.6)
[2023-09-29 14:16] LABS: BNP,B-Type NATRIURETIC PEPTIDE 166.5 pg/mL (0-100)
== END | disposition home or self-care (01) ==
LOC: POLAB3 10:13
PROVIDERS: PCP Family Medicine Geriatric Medicine; Visit Provider Family Medicine Geriatric Medicine
DX: E11.65 Type 2 diabetes mellitus with hyperglycemia (principal); I50.9 Heart failure, unspecified
CPT/HCPCS: 36415; 80048; 83036; 83880; 85025

== ENCOUNTER → 2023-10-01 | Outpatient (CLI) | payer MEDICARE, OTHER, SELFPAY ==
--- NOTE | 2023-10-01 14:55 | ECHOD_ITS ---
Reason For Study: SHORTNESS OF BREATH Procedure This was a 2D Doppler, Color Flow transthoracic echocardiogram. Exam performed in department. Left Ventricle Normal LV size. Left ventricular systolic function is normal. The estimated ejection fraction is 55 %. No regional wall motion abnormalities noted. Right Ventricle Normal RV size. Normal systolic function. Mitral Valve There is moderate mitral annular calcification. Aortic Valve Trisinus/trileaflet aortic valve. Moderate focal aortic valve thickening. Peak aortic valve gradient 40 mmHg. Mean aortic valve gradient 25 mmHg. Moderate aortic stenosis. Mild (1+) aortic valve insufficiency. Pulmonic Valve The pulmonic valve is not well visualized. Great Vessels Normal aortic root. The pulmonary artery is normal size. Normal inferior vena cava. Pericardium/Pleural No pericardial effusion. MMode/2D Measurements & Calculations LVIDd: 4.8 cm IVSd: 1.1 cm LVOT diam: 2.0 cm LVIDs: 3.4 cm LVPWd: 1.2 cm LVOT area: 3.2 cm2 RVDd: 3.9 cm FS: 29.4 % Ao root diam: 3.3 cm LAV(MOD-bp): 96.3 ml LVAd ap4: 35.4 cm2 LAV(MOD-bp) Indexed: 43.4 ml/m2 LVLd ap4: 8.5 cm LAV(MOD-sp2): 97.5 ml EDV(MOD-sp4): 123.2 ml LAV(MOD-sp4): 91.9 ml EDV(sp4-el): 124.7 ml LVAs ap4: 23.3 cm2 LVLs ap4: 7.6 cm ESV(MOD-sp4): 60.9 ml ESV(sp4-el): 60.1 ml EF(MOD-sp4): 50.6 % EF(sp4-el): 51.8 % SV(MOD-sp4): 62.3 ml SV(sp4-el): 64.6 ml LA A4 area: 28.4 cm2 LA dimension(2D): 5.0 cm RA A4 area: 23.9 cm2 Doppler Measurements & Calculations MV E max lexis: 125.7 cm/sec Ao V2 max: 316.0 cm/sec AI max lexis: 366.1 cm/sec Ao max P.0 mmHg AI max P.1 mmHg Ao V2 mean: 235.9 cm/sec AI dec slope: 241.4 cm/sec2 Ao mean P.1 mmHg AI P1/2t: 444.2 msec Ao V2 VTI: 68.6 cm AV (velocity ratio): 0.29 MARKEL(I,D): 0.93 cm2 MARKEL(V,D): 0.97 cm2 LV V1 max: 95.9 cm/sec SV(LVOT): 63.6 ml PA V2 max: 99.9 cm/sec LV V1 max P.7 mmHg LV V1 mean P.1 mmHg LV V1 mean: 68.4 cm/sec LV V1 VTI: 19.9 cm ECHO/Echo Complete Interpretation Summary Normal LV size. Left ventricular systolic function is normal. The estimated ejection fraction is 55 %. Mean aortic valve gradient 25 mmHg. Moderate aortic stenosis. Mild (1+) aortic valve insufficiency. Ordering Physician: Ivan Pinzon Chi Referring Physician: Ivan Pinzon Chi Performed By: Jami Jessica RDCS
== END | disposition home or self-care (01) ==
LOC: CVS 14:50
PROVIDERS: PCP Family Medicine Geriatric Medicine; Referring Provider Family Medicine Geriatric Medicine; Visit Provider Family Medicine Geriatric Medicine
DX: R06.02 Shortness of breath (principal)
CPT/HCPCS: 93306

== ENCOUNTER → 2023-10-06 | Outpatient (CLI) | payer MEDICARE, OTHER, SELFPAY ==
--- NOTE | 2023-10-06 11:17 | RAD_ITS ---
STUDY: X-RAY - THORACIC SPINE REASON FOR EXAM: Male, 78 years old. Back pain. TECHNIQUE: 3 view(s) of the thoracic spine were obtained. COMPARISON: None. FINDINGS: Osteopenia. Slight increased kyphosis. No scoliosis. Diffuse intervertebral disc space narrowing with osteophyte formation. Aortic tortuosity with calcification. RAD/Thoracic Spine 3 Views IMPRESSION: Osteopenia with diffuse moderate thoracic spondylosis. Electronically Signed: Willam Benito MD at 13:01 EST ,
[2023-10-06 12:33] LABS: Absolute Lymphocyte Count 1.54 X10^3/uL (0.83-4.51); Absolute Neutrophil Count 4.5 X10^3/uL (2.0-7.7); Basophil# 0.06 X10^3/uL; Basophil% 0.9 % (0-1); Eosinophil# 0.15 X10^3/uL; Eosinophils% 2.2 % (0-5); Hematocrit 33.6 % (40-54); Hemoglobin 9.7 g/dL (13.0-16.5); Lymphocyte # 1.54 X10^3/ul (0.83-4.51); Lymphocyte % 22.5 % (19-41); Mean Corp Hgb Conc 28.9 g/dL (32-36); Mean Corpuscular Hgb 23.5 pg (27.0-32.0); Mean Corpuscular Volume 81.4 fL (80-94); Monocyte# 0.63 X10^3/uL; Monocyte% 9.2 % (0-10); NRBC Flagged by Analyzer 0 % (0-5); Neutrophil # 4.45 X10^3/uL (2.7-7.7); Neutrophil % 64.9 % (47-70); Platelet Count 204 K/mm3 (150-450); RBC Distribution Width CV 15.9 % (11.6-14.6); RBC Distribution Width SD 47.4 fl (35.1-43.9); Red Blood Count 4.13 M/mm3 (4.6-6.2); White Blood Count 6.9 K/mm3 (4.4-11.0)
[2023-10-06 13:14] LABS: BNP,B-Type NATRIURETIC PEPTIDE 124.6 pg/mL (0-100)
[2023-10-06 13:55] LABS: ALB/GLOB Ratio 0.9 RATIO (0.9-2.4); AST(SGOT) 18 U/L (15-37); Alanine Aminotransfer ALT/SGPT 24 U/L (16-61); Albumin, Serum 3.3 g/dL (3.2-5.0); Alkaline Phosphatase 116 U/L (45-117); Anion Gap 9 (5-15); BUN 23 mg/dL (7-18); BUN/Creat Ratio 18.9 RATIO (10-20); Calcium,Total 8.6 mg/dL (8.5-10.1); Chloride 101 mmol/L (98-107); Creatinine, Serum 1.22 mg/dL (0.70-1.30); EST Glomerular Filtration Rate 61 mL/min (>60); Est Glom Filt Rate - Afr Amer 74 mL/min (>60); Globulin 3.7 g/dL (2.2-4.2); Glucose 399 mg/dL (74-106); Potassium 4.5 mmol/L (3.5-5.1); Sodium Level 135 mmol/L (136-145)
== END | disposition home or self-care (01) ==
PROVIDERS: PCP Family Medicine Geriatric Medicine; Referring Provider Family Medicine Geriatric Medicine; Visit Provider Family Medicine Geriatric Medicine
DX: R06.02 Shortness of breath (principal); M54.6 Pain in thoracic spine; D50.9 Iron deficiency anemia, unspecified; E87.6 Hypokalemia
CPT/HCPCS: 36415; 72072; 80053; 83880; 85025

== ENCOUNTER → 2023-10-08 | Outpatient (CLI) | payer MEDICARE, OTHER, SELFPAY ==
--- NOTE | 2023-10-10 13:54 | SPIR ---
Spirometry PFT Testing Spirometry PFT Testing: COMPLETE PULMONARY FUNCTION TEST INTERPRETATION Brief HPI: Patient is a 78-year-old male, currently under the care of Dr. Pinzon, who presents to [facility] for complete pulmonary function tests secondary to diagnosis of dyspnea. Respiratory therapist reports good effort and reproducible results. Interpretation: Forced expiration spirometry shows no large airways obstructive ventilatory defect with an FEV1 of 99% predicted. There is no significant bronchodilator response by strict ATS criteria. Spirograms are of good quality and plateau slowly, indicating slowly emptying areas of the lungs. The respiratory flow volume loop shows decreased expiratory flow rates at high lung volumes consistent with small airways obstruction. No previous pulmonary function tests were available for review. Impression: Grossly normal spirometry with some stigmata of possible small airways disease. Consider bronchoprovocation if asthma is suspected
== END | disposition home or self-care (01) ==
PROVIDERS: PCP Family Medicine Geriatric Medicine; Referring Provider Family Medicine Geriatric Medicine; Visit Provider Family Medicine Geriatric Medicine
DX: R06.02 Shortness of breath (principal)
CPT/HCPCS: 94060

== ENCOUNTER → 2023-10-16 | Outpatient (CLI) | payer MEDICARE, OTHER, SELFPAY ==
[2023-10-16] MEDS: Methacholine Chloride 18 ml neb kit INHALATION (13:07)
--- NOTE | 2023-10-21 08:40 | BRONCHALL ---
Bronchoprovocation Challenge Bronchoprovocation Challenge Bronchoprovocation Challenge: INTRODUCTION: The patient is a 78-year-old male who presents for a bronchoprovocation challenge secondary to a diagnosis of shortness of breath. Respiratory therapy reported good patient effort and reproducible results. INTERPRETATION: Initial spirometry did not demonstrate any large airways obstructive ventilatory defect with preserved airflows throughout. The patient was then given progressive doses of methacholine in a standardized fashion. There was no significant change in the patient's FEV1 throughout testing. IMPRESSION: Negative methacholine inhalation challenge.
== END | disposition home or self-care (01) ==
LOC: PSN 12:52
PROVIDERS: PCP Family Medicine Geriatric Medicine; Referring Provider Family Medicine Geriatric Medicine; Visit Provider Family Medicine Geriatric Medicine
DX: J45.909 Unspecified asthma, uncomplicated (principal)
CPT/HCPCS: 94070; 95070

== ENCOUNTER → 2023-11-13 | Outpatient (CLI) | payer MEDICARE, SELFPAY ==
--- OUTSIDE RECORDS SUMMARY | 2023-11-13 05:52 | XMS RPT_ITS | CCD ---
Author Name Unknown Address [address] [place] [address] Organization [facility] Results Test Name Value Interpretation Reference Range Facil ity Summary Purpose Family History No Family History Records FoundNo Family History Records FoundNo Family History Records Found Advance Directives No Advanced Directives Records FoundNo Advanced Directives Records FoundNo Advanced Directives Records Found Additional Source Comments (unrecognized sect ion and content) No Status Records FoundNo Status Records FoundNo Status Records Found INFORMATION SOURCE (unrecogn ized section and content) DATE CREATED AUTHOR AUTHOR'S ORGANIZ ATION 08/26/2019 [facility] DATE CREATED AUTHOR AUTHOR'S ORGANIZ ATION 10/22/2023 [facility] FOR RECORDS PERTAINING TO PATIENTS WHO ARE OR HAVE BEEN ENROLLED IN A CHEMICAL DEPENDENCY/SUBSTANCEABUSE PROGRAM, SOME INFORMATION MAY BE OMITTED. This clinical summary was aggregated from multiple sources. Caution should be exercised in using it in the provision of clinical care. This summary normalizes information from multiple sources, and as a consequence, information in this document may materially change the coding, format and clinical context of patient data. In addition, data may be omitted in some cases. CLINICAL DECISIONS SHOULD BE BASED ON THE PRIMARY CLINICAL RECORDS. [employer] [facility]. provides no warranty or guarantee of the accuracy or completeness of information in this document.
--- NOTE | 2023-11-20 12:38 | STRESSREP ---
Stress Test Report Date: 11/13/2023 Procedure: Pharmacologic stress nuclear imaging study Indications: Atrial fibrillation Consent: Per the patient Procedure: The patient underwent pharmacologic (Regadenoson 0.4mg ) evaluation with a peak heart rate of 101 beats per minute (70%predicted maximal heart rate) and a peak blood pressure of 128/70 mmHg. The baseline ECG demonstrated atrial fibrillation with nonspecific ST changes. The peak pharmacologic ECG demonstrated no diagnostic changes. Occasional PVC noted pretest, during infusion and post infusion. There was no complaint of chest discomfort during pharmacologic infusion or recovery. The patient was injected with 14.6 millicuries of technetium 99m Cardiolite and subsequently rest SPECT Cardiolite nuclear imaging was obtained in the horizontal long, vertical long, and short axis views. The patient underwent pharmacologic (Regadenoson) evaluation. The patient was injected with 44.5 millicuries of technetium 99m Cardiolite and subsequently stress SPECT Cardiolite nuclear imaging was obtained in the horizontal long, vertical long, and short axis views. A gated Cardiolite study at peak stress was obtained. The examination was stopped secondary to completion of protocol. Rest and stress SPECT Cardiolite nuclear imaging status post realignment, normalization, and attenuation correction demonstrate no fixed or reversible perfusion defect. There is end systolic thickening and brightening. The gated Cardiolite study demonstrates myocardial thickening and inward wall motion. The reported LVEF is 49%. Impression: 1. Pharmacologic (Regadenoson) evaluation 2. Peak pharmacologic ECG with no diagnostic ischemic change. 3. Occasional PVCs noted. Baseline atrial fibrillation.. 5. Rest and stress SPECT Cardiolite nuclear imaging demonstrate relative uniform tracer uptake and myocardial perfusion appearing within normal limits. 6. The gated Cardiolite study reports an LVEF of 49%. This note was generated with [employer] software. It may contain incorrect words, spelling, and punctuation that were not noted in checking the note before signing. 11/13/2023 majo
== END | disposition home or self-care (01) ==
PROVIDERS: PCP Family Medicine Geriatric Medicine; Referring Provider Internal Medicine Cardiovascular Disease; Visit Provider Internal Medicine Cardiovascular Disease
DX: R06.09 Other forms of dyspnea (principal); I48.91 Unspecified atrial fibrillation
CPT/HCPCS: 78452; 93017; A9500; A4216; J2785

== ENCOUNTER → 2023-12-03 | Outpatient (CLI) | payer MEDICARE, SELFPAY ==
--- OUTSIDE RECORDS SUMMARY | 2023-12-03 09:48 | XMS RPT_ITS | CCD ---
Author Name Unknown Address [address] [place] [address] Organization [facility] Results Test Name Value Interpretation [...] DATE CREATED AUTHOR AUTHOR'S ORGANIZ ATION 08/26/2019 [facility] DATE CREATED AUTHOR AUTHOR'S ORGANIZ ATION 10/22/2023 [facility] FOR RECORDS PERTAINING TO PATIENTS WHO ARE [...] BE BASED ON THE PRIMARY CLINICAL RECORDS. [employer] [facility]. provides no warranty or guarantee of the accuracy or completeness of information in this document.
[2023-12-03 10:12] LABS: Absolute Lymphocyte Count 1.66 X10^3/uL (0.83-4.51); Absolute Neutrophil Count 4.3 X10^3/uL (2.0-7.7); Basophil# 0.04 X10^3/uL; Basophil% 0.6 % (0-1); Eosinophil# 0.19 X10^3/uL; Eosinophils% 2.8 % (0-5); Hematocrit 39.1 % (40-54); Hemoglobin 12.8 g/dL (13.0-16.5); Lymphocyte # 1.66 X10^3/ul (0.83-4.51); Lymphocyte % 24.4 % (19-41); Mean Corp Hgb Conc 32.7 g/dL (32-36); Mean Corpuscular Hgb 27.9 pg (27.0-32.0); Mean Corpuscular Volume 85.2 fL (80-94); Mean Platelet Vol. 10.4 fl (6.2-12.0); Monocyte% 8.8 % (0-10); NRBC Flagged by Analyzer 0 % (0-5); Neutrophil # 4.28 X10^3/uL (2.7-7.7); Neutrophil % 63.1 % (47-70); Platelet Count 147 K/mm3 (150-450); RBC Distribution Width CV 19.8 % (11.6-14.6); RBC Distribution Width SD 61.4 fl (35.1-43.9); Red Blood Count 4.59 M/mm3 (4.6-6.2); White Blood Count 6.8 K/mm3 (4.4-11.0)
[2023-12-03 10:40] LABS: AST(SGOT) 13 U/L (15-37); Alanine Aminotransfer ALT/SGPT 19 U/L (16-61); Albumin, Serum 3.5 g/dL (3.2-5.0); Alkaline Phosphatase 118 U/L (45-117); Anion Gap 4 (5-15); BUN 26 mg/dL (7-18); BUN/Creat Ratio 24.3 RATIO (10-20); Calcium,Total 9.1 mg/dL (8.5-10.1); Chloride 105 mmol/L (98-107); Creatinine, Serum 1.07 mg/dL (0.70-1.30); EST Glomerular Filtration Rate 71 mL/min (>60); Est Glom Filt Rate - Afr Amer 86 mL/min (>60); Globulin 3.6 g/dL (2.2-4.2); Glucose 225 mg/dL (74-106); Potassium 4.4 mmol/L (3.5-5.1); Protein, Total 7.1 g/dL (6.4-8.2); Sodium Level 139 mmol/L (136-145); Thyroid Stim Hormone (TSH) 4.45 uIU/mL (0.358-3.74)
[2023-12-03 11:00] LABS: Vitamin D,25 Hydroxy 34.5 ng/mL
== END | disposition home or self-care (01) ==
LOC: POLAB3 09:01
PROVIDERS: PCP Family Medicine Geriatric Medicine; Visit Provider Family Medicine Geriatric Medicine
DX: E11.65 Type 2 diabetes mellitus with hyperglycemia (principal); E55.9 Vitamin D deficiency, unspecified; R53.83 Other fatigue
CPT/HCPCS: 36415; 80053; 82306; 84443; 85025

== ENCOUNTER → 2024-02-09 | Outpatient (CLI) | payer MEDICARE, SELFPAY ==
--- NOTE | 2024-02-09 08:52 | VDLE_ITS ---
Reason For Study: Bilateral leg edema RIGHT LEFT GSV is normal. GSV is normal. CFV is compressible, spontaneous, phasic, CFV is compressible, spontaneous, phasic, competent and demonstrates normal competent, and demonstrates normal augmentation. augmentation. FV is compressible, spontaneous, phasic, FV is compressible, spontaneous, phasic, competent and demonstrates normal competent and demonstrates normal augmentation. augmentation. POP V is compressible, spontaneous, phasic, POP V is compressible, spontaneous, phasic, competent and demonstrates normal competent and demonstrates normal augmentation. augmentation. T/P Trunk is compressible. T/P Trunk is compressible. PTV is compressible. PTV is compressible. RT PerV is compressible. LT PerV is compressible. Procedure This is a venous duplex using B-mode, color flow and spectral Doppler. Exam performed in department. A preliminary report was called and/or faxed to Dr. Pinzon. VL/Venous Duplex US - [place] Extrem Interpretation Summary Deep veins of the bilateral lower extremities are patent and compressible segme ntally. There is no evidence of bilateral lower extremity deep vein thrombosis. The bilateral great saphenous veins appear patent and compressible segmentally. Ordering Physician: Ivan Pinzon Chi Referring Physician: Ivan Pinzon Chi Performed By: Andree Delacruz RVT
== END | disposition home or self-care (01) ==
PROVIDERS: PCP Family Medicine Geriatric Medicine; Referring Provider Family Medicine Geriatric Medicine; Visit Provider Family Medicine Geriatric Medicine
DX: M79.89 Other specified soft tissue disorders (principal)
CPT/HCPCS: 93970

== ENCOUNTER → 2024-03-04 | Outpatient (CLI) | payer MEDICARE, SELFPAY ==
[2024-03-04 10:42] LABS: Absolute Lymphocyte Count 1.48 X10^3/uL (0.83-4.51); Basophil# 0.04 X10^3/uL; Basophil% 0.6 % (0-1); Eosinophil# 0.22 X10^3/uL; Eosinophils% 3.5 % (0-5); Hematocrit 37.9 % (40-54); Hemoglobin 12.9 g/dL (13.0-16.5); Lymphocyte # 1.48 X10^3/ul (0.83-4.51); Lymphocyte % 23.2 % (19-41); Mean Corpuscular Hgb 30.5 pg (27.0-32.0); Mean Corpuscular Volume 89.6 fL (80-94); Mean Platelet Vol. 11.1 fl (6.2-12.0); Monocyte# 0.59 X10^3/uL; Monocyte% 9.3 % (0-10); NRBC Flagged by Analyzer 0 % (0-5); Neutrophil # 4.02 X10^3/uL (2.7-7.7); Neutrophil % 63.1 % (47-70); Platelet Count 130 K/mm3 (150-450); RBC Distribution Width CV 14.7 % (11.6-14.6); RBC Distribution Width SD 47.8 fl (35.1-43.9); Red Blood Count 4.23 M/mm3 (4.6-6.2); White Blood Count 6.4 K/mm3 (4.4-11.0)
[2024-03-04 10:54] LABS: ALB/GLOB Ratio 1.1 RATIO (0.9-2.4); AST(SGOT) 17 U/L (15-37); Alanine Aminotransfer ALT/SGPT 20 U/L (16-61); Albumin, Serum 3.4 g/dL (3.2-5.0); Alkaline Phosphatase 107 U/L (45-117); Anion Gap 7 (5-15); BUN 18 mg/dL (7-18); BUN/Creat Ratio 18.8 RATIO (10-20); Calcium,Total 8.6 mg/dL (8.5-10.1); Chloride 103 mmol/L (98-107); Creatinine, Serum 0.96 mg/dL (0.70-1.30); EST Glomerular Filtration Rate 81 mL/min (>60); Est Glom Filt Rate - Afr Amer 98 mL/min (>60); Globulin 3.2 g/dL (2.2-4.2); Glucose 373 mg/dL (74-106); Potassium 4.3 mmol/L (3.5-5.1); Protein, Total 6.6 g/dL (6.4-8.2); Sodium Level 135 mmol/L (136-145); Thyroid Stim Hormone (TSH) 2.67 uIU/mL (0.358-3.74)
== END | disposition home or self-care (01) ==
LOC: POLAB3 09:32
PROVIDERS: PCP Family Medicine Geriatric Medicine; Visit Provider Family Medicine Geriatric Medicine
DX: E11.21 Type 2 diabetes mellitus with diabetic nephropathy (principal); R53.83 Other fatigue; E55.9 Vitamin D deficiency, unspecified
CPT/HCPCS: 36415; 80053; 82306; 84443; 85025

== ENCOUNTER → 2024-04-20 | Outpatient (CLI) | payer MEDICARE, SELFPAY ==
--- NOTE | 2024-04-20 14:08 | RAD_ITS ---
EXAM: XR CHEST, 2 VIEWS CLINICAL INDICATION: HARRISON -- for heart cath TECHNIQUE: Frontal and lateral views of the chest. COMPARISON: 09/15/2023 FINDINGS: LUNGS AND PLEURAL SPACES: Possible right larger than left pleural effusions and/or right-sided pleural thickening. No definite focal airspace disease. No pneumothorax. HEART: No significant abnormality. Cardiac silhouette not enlarged. MEDIASTINUM: Central airways and mediastinal contour are unremarkable. BONES/JOINTS: Degenerative changes in the spine. No acute fracture. SOFT TISSUES: No significant abnormality. VASCULATURE: Atherosclerosis. RAD/Chest PA and Lateral IMPRESSION: Possible right larger than left pleural effusions and/or right-sided pleural thickening. No definite focal airspace disease. Electronically Signed: Eusebio Brady DO at 21:47 EDT ,
[2024-04-20 15:03] LABS: Hematocrit 41.6 % (40-54); Hemoglobin 14.1 g/dL (13.0-16.5); Mean Corp Hgb Conc 33.9 g/dL (32-36); Mean Corpuscular Hgb 30.5 pg (27.0-32.0); Mean Corpuscular Volume 89.8 fL (80-94); Mean Platelet Vol. 10.7 fl (6.2-12.0); Platelet Count 167 K/mm3 (150-450); RBC Distribution Width CV 14.6 % (11.6-14.6); RBC Distribution Width SD 47.8 fl (35.1-43.9); Red Blood Count 4.63 M/mm3 (4.6-6.2); White Blood Count 8.7 K/mm3 (4.4-11.0)
[2024-04-20 15:17] LABS: International Normalized Ratio 1.3; Prothrombin Time (Protime)PT. 16.1 SECONDS (11.7-14.9)
[2024-04-20 15:18] LABS: Partial Thromboplast Time 34.8 Seconds (24.1-36.2)
[2024-04-20 15:42] LABS: Anion Gap 9 (5-15); BUN 27 mg/dL (7-18); Calcium,Total 9.8 mg/dL (8.5-10.1); Chloride 103 mmol/L (98-107); Creatinine, Serum 1.08 mg/dL (0.70-1.30); EST Glomerular Filtration Rate 71 mL/min (>60); Est Glom Filt Rate - Afr Amer 85 mL/min (>60); Glucose 256 mg/dL (74-106); Potassium 4.5 mmol/L (3.5-5.1); Sodium Level 137 mmol/L (136-145)
== END | disposition home or self-care (01) ==
PROVIDERS: PCP Family Medicine Geriatric Medicine; Referring Provider Internal Medicine Cardiovascular Disease; Visit Provider Internal Medicine Cardiovascular Disease
DX: I25.10 Atherosclerotic heart disease of native coronary artery without angina pectoris (principal); I48.91 Unspecified atrial fibrillation; E11.9 Type 2 diabetes mellitus without complications; I10 Essential (primary) hypertension; R06.09 Other forms of dyspnea; D50.9 Iron deficiency anemia, unspecified
CPT/HCPCS: 36415; 71046; 80048; 85027; 85610; 85730

== ENCOUNTER 2024-04-28 11:35 | Observation (INO) | payer MEDICARE, SELFPAY ==
[2024-04-27 07:51] VITALS: BMI 34.9
[2024-04-28] VITALS (16 sets, daily range): BP systolic 148–182; BP diastolic 62–84; PULSE 58–83; RESP 16–18; TEMP 36.6–36.7; O2SAT 94–98; BMI 34.9
--- NOTE | 2024-04-28 11:41 | DCINST_ITS ---
Discharge Instructions Diet Discharge Diet: 1999 Calorie Control Diet Activity Discharge Activity: Return to Normal Activity Dressing / Incision Call your doctor if your incision/area has: Continuous Slow Oozing, Sudden Increased Bleeding, Increased Pain/ Swelling, Increased Redness, Foul Smelling Discharge and Swelling at the incision site Call your doctor if you observe: Fever of 101 or Higher, Coldness, Increased Pain, Numbness or Tingling and Change in Color Follow Up Care Please Follow Up With: Latasha Ceja MD When: 2-4 weeks Test Results: Test results from this visit will be discussed in further detail at your follow- up appointment, if applicable. Discharge Plan Admission Attending Provider: Latasha Ceja Primary Care Provider: Ivan Pinzon Chi Instructions Print Language: Kazakh Discharge Orders/Prescriptions Prescriptions: New clopidogrel 75 mg Tablet 75 mg PO DAILY Qty: 30 11RF Continued lisinopril 2.5 mg tablet 2.5 mg PO DAILY polysaccharide iron complex [Ferrex 150] 150 mg iron capsule 150 mg PO DAILY melatonin 5 mg capsule 5 mg PO DAILY levothyroxine 125 mcg tablet 112 mcg PO DAILY bumetanide 2 mg tablet 2 mg PO BID Eliquis 5 mg tablet 5 mg PO BID metoprolol tartrate 25 mg tablet 25 mg PO BID insulin degludec [Tresiba FlexTouch U-200] 200 unit/mL (3 mL) insulin pen 44 unit subcut QHS digoxin 250 mcg (0.25 mg) tablet 250 mcg PO DAILY Qty: 90 3RF atorvastatin 40 MG tablet 40 mg PO DAILY Referrals / Follow Up: Ivan Pinzon Chi, MD [Primary Care Provider] - Disposition Disposition (needs filled in before D/C Order can be placed): Home, Self Care
--- NOTE | 2024-04-28 11:56 | CL.I_ITS ---
Patient Name: COLBY RIVERA Study Date: 04/28/2024 Performing: Latasha Ceja MD Ht: 69 inches 175.26 cm : 1945 Wt: 237 lbs 107.5 kg Age: 78 Gender: male BSA: 2.22 PROCEDURE(S) PERFORMED DC02-(98316)LHC/COR IC12-(05032/C9600)LUCY W/WO PTCA, SINGLE CORONARY ARTERY CLINICAL PROFILE AND CO-MORBIDITIES Indications: Stable Known CAD Heart Failure: None Stress/Imaging Cardiac CTA: Yes Result: 2VD Cardiac CTA: 2VD Angina Classification Anginal Classification w/in 2 Weeks: Anginal Equivalent Dyspnea CAD Presentations: Stable angina. CONCLUSIONS 70% Mid LAD, iFR 0.80 60% Mid LCX; DIRECTOR OF MECHANICAL ENGINEERING OM1, filling retrogradely via collaterals 40% Mid RCA Successful LUCY Mid LAD using Eddie Otero 3.0x38 mm RECOMMENDATIONS Plavix for at least 12 months Continue Apixaban DESCRIPTION OF PROCEDURE The patient arrived to the procedure lab. The risks and benefits of the procedure as well as a full description of our services here and lack of surgical backup were fully explained to the patient and/or their significant other prior to the catheterization. The Timeout was completed, verifying the correct patient and procedure. The patient's procedural site was prepped and draped in the usual fashion. Local anesthetic was given subcutaneously to right radial region with Lidocaine 2%. Using a modified Seldinger technique, arterial access was obtained via the right radial artery, a 6Fr sheath was inserted.. Left Coronary Artery selective angiography was performed in multiple views using a 5 Fr. 4.0 [place] catheter. Right Coronary Artery selective angiography was then performed in multiple views using a 5 Fr. 4.0 [place] catheterThe images were reviewed and options discussed. A decision was then made to proceed with an Intervention, IVUS or other adjunct procedure. xb3 Guide catheter was inserted and engaged into the LCA. ffr Guide wire was advanced to the LAD. The FFR/iFR wire was inserted. iFR measurements were performed. iFR Ratio: .90/.80 ffr Guide wire was exchanged for a runthrough The FFR/iFR wire was then removed. eddie 3.0 x 38 Drug Eluting stent was advanced across the lesion in the LAD, prox. Angiogram performed post stent deployment. nc 3.00 x 20 Balloon catheter was inserted post stent. Angiogram performed post balloon dilatation. Angiogram performed post balloon dilatation. The arterial sheath was pulled and a TR Band was applied for hemostasis CORONARY ANGIOGRAPHY DOMINANCE: Right Dominant LEFT MAIN: No significant disease noted LEFT ANTERIOR DESCENDING ARTERY: LAD: Tubular 50% Mid lesion in LAD Tubular 70% Proximal lesion in LAD OM 1: Calcified 100% Ostial lesion in MARG1 OM 2: Calcified 100% Ostial lesion in MARG1 RIGHT CORONARY ARTERY: RCA: Calcified 40% Mid lesion in RCA INTERVENTION INFORMATION LESION SITE: LAD (Proximal) Lesion Complexity: High/C, lesion length: 34 mm Pre Stenosis: 70 % Pre intervention HARLEEN flow: 3 PROCEDURE: Drug Eluting Stent with post dilatation Post Stenosis: 0 % Post intervention HARLEEN flow: 3 Lesion Devices: [employer] 6 Fr XB3.0 100cm Guide Catheter [employer] Coronary FFR Wire Terumo .014 180cm Runthrough Extra Floppy straight Medtronic 3.0 x 38 EDDIE FRONTIER LUCY [employer] [place] EMERGE MR 3.00x20 BALLOON COMPLICATIONS No Complications PROCEDURE MEDICATIONS Versed 1 mg IV Fentanyl 50 mcg IV Versed 1 mg IV Versed 1 mg IV Fentanyl 50 mcg IV Oxygen: 2 L/min via nasal cannula Aspirin (325mg) 1 Tabs PO 04/28/2024 09:08:08 Brilinta 180 mg PO @ 04/28/2024 11:16:51 Heparin given IA 04/28/2024 10:45:25 Heparin 2000 unit(s) IV 04/28/2024 11:30:05 Heparin 2000 unit(s) IV 04/28/2024 11:39:18 Nitro 200 mcg IC 04/28/2024 11:10:33 Nitro 300 mcg IC 04/28/2024 11:28:37 Verapamil 2.5mg, Ntg 200mcgs, 2000 units of Heparin given IA 04/28/2024 10:45:25 SUMMARY OF HEMODYNAMIC DATA Time AIR REST ECG 09:07:37 ECG 09:09:28 AO 130/64 (91) SA 10:50:01 AIR REST 11:47:05 Signed By Latasha Ceja MD On 04/28/2024 11:55:49 Latasha Ceja MD
--- NOTE | 2024-04-28 13:26 | CRPHASE1 ---
Patient Communication Patient Information Former Patient:: Phase I PHII Cardiac Rehab Discussed with Patient:: Yes Guide to Cardiac Rehab Given to Patient:: Yes Cardiac Rehab Facility Choice List Given to Patient:: Yes Communication to Cardiac Rehab Choice Program [facility] CR PHII:: Communication Given to CR and Refer to [facility] Choice Program Other:: Communication Given to CR Control Clerk Auditing:: Latasha Ceja Refer Phase II Cardiac Rehab:: Yes Post Discharge Choice Letter Given to Patient:: Yes Phase I Charge:: Level I - Education Medical/Surgical History Medical History CAD:: Yes Congestive Heart Failure: Valve Disease/Replacement:: Yes Diabetes:: Yes Diabetes Type II:: Yes Hypertension:: Yes Dyslipidemia:: Yes Arrhythmias:: Yes CVA/TIA: Thyroid:: Yes Surgical History PTCA:: Yes Cardiac Rehabilitation Info Program Information Cardiac Rehabilitation Program Information: Cardiac Rehab The cardiac rehab team at [facility] consists of highly skilled exercise physiologists, nurses, respiratory therapists and physicians working together with you. Our purpose is to help you have a full recovery and achieve the goals you set for yourself. Over the years many of our patients have returned to activities they assumed they would never do again! We can help restore your confidence and motivation to make lifestyle changes that can have a significant impact on your health and quality of life! We can help answer questions and concerns you may have about exercise, lifestyle, medications, diet, stress and anxiety which are common following a hospitalization. WE monitor ECG and vital signs during exercise and discuss your progress with you and report to your physician(s). Cardiac Rehab is proven to help reduce readmissions, improve functional capacity and lower recurrence of problems with your heart. Our Cardiac Rehab program is Certified by the [place] [employer] Pulmonary [employer] (AACVPR) and Accredited by the [place] [employer] through our [facility]. You can contact us at . We invite you to call us with your questions or to get started in our program. If you have other questions or concerns be sure to ask your physician/provider during your follow-up visit. WE look forward to seeing you!
--- NOTE | 2024-04-28 13:28 | CRPH1.INSTRU ---
General Education Discussed with Patient CAD and cardiac anatomy and function:: Patient communicates acknowledgment and Needs reinforcement Explanation of diagnoses and procedures:: Patient communicates acknowledgment and Needs reinforcement Sign/Symptoms of [place]:: Patient communicates acknowledgment and Needs reinforcement Antiplatelet therapy: Patient communicates acknowledgment and Needs reinforcement Proper use of NTG-SL: Patient communicates acknowledgment and Needs reinforcement Emergency procedures and activation of EMS: Patient communicates acknowledgment and Needs reinforcement Compliance of all prescribed medications: Patient communicates acknowledgment and Needs reinforcement Smoking Risk Factors Patient Nicotine/Smoking Risk Factors Are:: Never smoked Dyslipidemia Risk Factors Patient Dyslipidemia Risk Factors Are:: Total Cholesterol, Triglycerides, HDL and LDL Recommendations Recommendations Include:: Lipid profile provided and Therapeutic Lifestyle Change dietary guidelines Response Code Dyslipidemia Response Code:: Patient communicates acknowledgment and Patient returns demonstration Overweight/Obesity Risk Factors Patient Overweight/Obesity Risk Factors Are:: Obesity - > or = 30 Recommendations Recommendations Include:: Weight loss of 5-10% and Reduced calorie diet Response Code Overweight/Obesity:: Patient communicates acknowledgment and Needs reinforcement Hypertension Recommendations Recommendations Include:: Maintain BP <130/85 and Decrease/maintain normal body weight Response Code Hypertension:: Patient communicates acknowledgment and Needs reinforcement Heart Disease Risk Factors Patient Heart Disease Risk Factors Are:: Family history of heart disease < 65 years old Recommendations Recommendations Include:: Educated family members of their risk Response Code Heart Disease Response Code:: Family communicates acknowledgment Diabetes Risk Factors Patient Diabetes Risk Factors Are:: Elevated blood sugars Recommendations Recommendations Include:: Maintain fasting blood sugars 70-110 md/dL, Maintain HgbA1c of 6% or less, Monitor blood sugar as prescribed, Diabetic dietary guidelines and Decrease/maintain body weight Response Code Diabetes:: Patient communicates acknowledgment, Family communicates acknowledgment, Family returns demonstration and Needs reinforcement Metabolic Syndrome Risk Factors Patient Metabolic Syndrome Risk Factors Are [3 of 5]:: Hypertension and Low HDL <40 [male] or < 50 [female] Recommendations Recommendations Include:: Reinforce compliance to risk factor modifications, Patient is diabetic and Encouraged follow-up with Primary Care Physician Response Code Metabolic Syndrome Response Code:: Patient communicates acknowledgment and Needs reinforcement Sedentary Risk Factors Patient Sedentary Risk Factors Are:: Lack of regular exercise Recommendations Recommendations Include:: Aerobic exercise 5-7 times/week for 20-30 minutes continuously, Benefits of regular exercise, Discussed home walking program and Monitored Outpatient Cardiac Rehab Response Code Sedentary Response Code:: Patient communicates acknowledgment, Patient returns demonstration and Needs reinforcement Stress Risk Factors Patient Stress Risk Factors Are:: Patient denies stress as a risk factor Response Code Stress Response Code:: Not instructed
[2024-04-28] MEDS: 0.9% Normal Saline (1000mL) 1,000 ML 100 ML IV (15:31)
[2024-04-28] MEDS: Clopidogrel Bisulfate 300 MG Tablet PO (15:32)
[2024-04-28] MEDS: Acetaminophen 325 MG Tablet 650 MG PO (16:06)
[2024-04-28] MEDS: Bumetanide 2 MG Tablet PO (18:54)
[2024-04-28] MEDS: MELATONIN 10 MG TABLET 5 MG PO (21:40)
[2024-04-28] MEDS: APIXABAN 5 MG TABLET PO (21:40)
[2024-04-28] MEDS: Atorvastatin Calcium 40 MG Tablet PO (21:40)
[2024-04-28] MEDS: Insulin Glargine-YFGN 100 UNIT/ML Pen 44 UNIT SC (21:40)
[2024-04-28] MEDS: Metoprolol Tartrate 25 MG Tablet PO (21:40)
[2024-04-28 22:11] LABS: Bedside Glucose 272 mg/dL (74-106)
[2024-04-29 03:20] VITALS: BP 137/63; PULSE 83; RESP 20; TEMP 36.2; O2SAT 92
[2024-04-29 05:19] LABS: Hematocrit 38.9 % (40-54); Hemoglobin 13.3 g/dL (13.0-16.5); Mean Corp Hgb Conc 34.2 g/dL (32-36); Mean Corpuscular Hgb 30.4 pg (27.0-32.0); Mean Platelet Vol. 10.6 fl (6.2-12.0); Platelet Count 127 K/mm3 (150-450); RBC Distribution Width CV 14.6 % (11.6-14.6); Red Blood Count 4.37 M/mm3 (4.6-6.2); White Blood Count 8.1 K/mm3 (4.4-11.0)
[2024-04-29] MEDS: Levothyroxine 112 MCG Tablet PO (05:34)
[2024-04-29 05:41] LABS: AST(SGOT) 21 U/L (15-37); Alanine Aminotransfer ALT/SGPT 22 U/L (16-61); Albumin, Serum 3.6 g/dL (3.2-5.0); Alkaline Phosphatase 106 U/L (45-117); Anion Gap 8 (5-15); BUN 17 mg/dL (7-18); Calcium,Total 9.3 mg/dL (8.5-10.1); Chloride 105 mmol/L (98-107); EST Glomerular Filtration Rate 77 mL/min (>60); Est Glom Filt Rate - Afr Amer 93 mL/min (>60); Estimated Creatinine Clearance 75.93 ml/min; Globulin 3.5 g/dL (2.2-4.2); Glucose 239 mg/dL (74-106); Potassium 3.4 mmol/L (3.5-5.1); Protein, Total 7.1 g/dL (6.4-8.2); Sodium Level 140 mmol/L (136-145)
[2024-04-29 07:04] VITALS: O2SAT 94
[2024-04-29 09:31] VITALS: BP 153/79; PULSE 87; RESP 18; TEMP 36.7; O2SAT 95
--- NOTE | 2024-04-29 09:31 | PHA.DC.MC.R ---
Pharmacy [facility] has performed discharge medication reconciliation and counseling for this patient. The patient's discharge medication list was reviewed for discrepancies and discrepancies were resolved. The patient was counseled on the following discharge medications and changes in medications for homegoing were reviewed. 1. PLAVIX 2. IMPORTANCE OF MONITORING FOR BLEEDING WITH PLAVIX + ELIQUIS USE The Reason for Use, instructions for use, and potential side effects were reviewed for all new medications. The patient's questions regarding all of their medications were answered. The patient was able to verbally demonstrate an understanding of their discharge medications. The patient was counselled by Lelia Lewis PharmD Candidate Medications at Discharge Home Medications atorvastatin 40 mg tablet 40 mg PO DAILY 10/22/19 lisinopril 2.5 mg tablet 2.5 mg PO DAILY 07/22/22 melatonin 5 mg capsule 5 mg PO DAILY 09/18/23 polysaccharide iron complex 150 mg iron capsule (Ferrex) 150 mg PO DAILY 10/09/23 bumetanide 2 mg tablet 2 mg PO BID 11/25/23 levothyroxine 125 mcg tablet 112 mcg PO DAILY 11/25/23 apixaban 5 mg tablet (Eliquis) 5 mg PO BID 03/16/24 digoxin 250 mcg (0.25 mg) tablet 250 mcg PO DAILY #90 tabs 04/20/24 insulin degludec 200 unit/mL (3 mL) subcutaneous pen (Tresiba FlexTouch U-200 insulin) 44 unit subcut QHS 04/20/24 metoprolol tartrate 25 mg tablet 25 mg PO BID 04/20/24 clopidogrel 75 mg tablet 75 mg PO DAILY #30 tabs 04/28/24
[2024-04-29 09:36] VITALS: PULSE 87
[2024-04-29] MEDS: Metoprolol Tartrate 25 MG Tablet PO (09:36)
[2024-04-29] MEDS: Clopidogrel Bisulfate 75 MG Tablet PO (09:36)
[2024-04-29] MEDS: Bumetanide 2 MG Tablet PO (09:36)
[2024-04-29] MEDS: Lisinopril 2.5 MG Tablet PO (09:36)
[2024-04-29] MEDS: Digoxin 250 MCG Tablet PO (09:36)
[2024-04-29] MEDS: APIXABAN 5 MG TABLET PO (09:36)
[2024-04-29] MEDS: Iron Polysaccharide Complex 150 MG CAPSULE PO (09:37)
--- NOTE | 2024-04-29 10:12 | CASEMGMT ---
Patient has order for discharge. RN CM in to discuss needs at discharge. Patient denies needs or help at discharge. Patient had no further questions or concerns.
== END 2024-04-29 09:00 | disposition home or self-care (01) ==
LOC: CLSP 11:42 → PCU 12:05 → CLSP 12:06 → PCU 12:06
PROVIDERS: Admitting Provider Internal Medicine Cardiovascular Disease; PCP Family Medicine Geriatric Medicine; Visit Provider Internal Medicine Cardiovascular Disease
DX: I25.118 Atherosclerotic heart disease of native coronary artery with other forms of angina pectoris (principal); I48.91 Unspecified atrial fibrillation; Z79.4 Long term (current) use of insulin; E11.9 Type 2 diabetes mellitus without complications; Z79.899 Other long term (current) drug therapy; Z79.84 Long term (current) use of oral hypoglycemic drugs; Z79.01 Long term (current) use of anticoagulants; Z79.890 Hormone replacement therapy; N40.0 Benign prostatic hyperplasia without lower urinary tract symptoms; E78.5 Hyperlipidemia, unspecified; E03.9 Hypothyroidism, unspecified; I10 Essential (primary) hypertension; D50.9 Iron deficiency anemia, unspecified; Z87.891 Personal history of nicotine dependence
CPT/HCPCS: 36415; 80053; 82962; 85027; 92928; 93005; 93454; 96360; 96361; 99152; 99153; 99221; C1894; J7030; J7040; Q9967; C1725; C1769; C1874; C1887; C9600; G0378

== ENCOUNTER → 2024-04-30 | Outpatient (CLI) | payer MEDICARE, SELFPAY ==
[2024-04-30 11:37] LABS: Hemoglobin 14.1 g/dL (13.0-16.5); Mean Corp Hgb Conc 34.4 g/dL (32-36); Mean Corpuscular Hgb 31.1 pg (27.0-32.0); Mean Corpuscular Volume 90.3 fL (80-94); Mean Platelet Vol. 10.3 fl (6.2-12.0); Platelet Count 157 K/mm3 (150-450); RBC Distribution Width CV 14.9 % (11.6-14.6); RBC Distribution Width SD 48.8 fl (35.1-43.9); Red Blood Count 4.54 M/mm3 (4.6-6.2); White Blood Count 8.2 K/mm3 (4.4-11.0)
[2024-04-30 12:46] LABS: Digoxin Level 1.15 ng/mL (0.80-2.00)
== END | disposition home or self-care (01) ==
LOC: LAB 10:57
PROVIDERS: PCP Family Medicine Geriatric Medicine; Referring Provider Internal Medicine Cardiovascular Disease; Visit Provider Internal Medicine Cardiovascular Disease
DX: D50.9 Iron deficiency anemia, unspecified (principal); I48.91 Unspecified atrial fibrillation; I10 Essential (primary) hypertension; Z79.899 Other long term (current) drug therapy
CPT/HCPCS: 36415; 80162; 85027

== ENCOUNTER 2024-05-07 12:23 | Inpatient (IN) | payer MEDICARE, SELFPAY ==
[2024-05-07] VITALS (19 sets, daily range): BP systolic 121–156; BP diastolic 53–77; PULSE 59–85; RESP 14–22; TEMP 35.8–36.6; O2SAT 94–99; BMI 35.1; BMI 35.2
--- NOTE | 2024-05-07 12:30 | EKG12_ITS ---
Test Reason : CP Blood Pressure : / mmHG Vent. Rate : 092 BPM Atrial Rate : 000 BPM P-R Int : 000 ms QRS Dur : 094 ms QT Int : 372 ms P-R-T Axes : 000 001 259 degrees QTc Int : 460 ms Atrial fibrillation with premature ventricular or aberrantly conducted complexes Possible Inferior infarct , age undetermined Marked ST abnormality, possible lateral subendocardial injury Abnormal ECG Confirmed by Bolivar Galarza ([id number]), primer expeditor and drier FEDERICO MCHUGH ([id number]) on 05/10/2024 10:38:18 AM Referred By: Confirmed By:Bolivar Galarza
[2024-05-07] MEDS: 0.9% Normal Saline (1000mL) 1,000 ML 150 ML IV (12:35)
[2024-05-07] MEDS: Aspirin 81 MG TAB.CHEW 324 MG PO (12:35)
--- NOTE | 2024-05-07 12:35 | ED.VIS.CHEST ---
HPI History of Present Illness Chief Complaint: Chest Pain Detail of Chief Complaint: Chest pain, diaphoresis, shortness of breath, dry heaves and lightheadednes Informant: patient Onset/Context/Timing Onset: Today (Approximately 1 hour ago) Activity at onset: sudden Timing: Intermittent (Duration 30 to 45 minutes) Quality: Positive for Aching Location: Substernal Current Severity: Gone Maximum Severity: Moderate Worsened By: Nothing Relieved By: Nothing Associated Symptoms: Positive for Nausea, Vomiting, Diaphoresis, Dyspnea, Lightheadedness and Palpitations; Negative for Cough, Fever or Acid Reflux Narrative Narrative: Patient is a 78-year-old male with history of atrial fibrillation on long-term anticoagulant, coronary artery disease with stent placement April 28, 2024. He was noted to have severe disease in the LAD and RCA. Review of note authored by Dr. Twan núñez was reviewed. Unable to determine what vessel was stented. Patient was noted to be in a wide-complex tachycardia rate of greater than 200 suspect V. tach. Patient is pain-free and symptom-free presently. EKG was transmitted prior to arrival which reveals inferior lateral ST depression which is new from April 28. Repeat EKG reveals ST depression with either a premature ventricular beat or aberrant beat. There is ST elevation in aVR which raises concern for multivessel disease. Of note his cath reveals multiple lesions in his RCA, diagonal and LAD. Prior Similar Symptoms: Yes Recent Illness/Hospitalization: Yes CVD Risk Factors: Positive for Hypertension, Diabetes and Hypercholesterolemia PE Risk Factors: Negative for Recent Travel/Surgery, Recent Immobilization, Prior DVT or PE or Cancer TAD Risk Factors: Positive for Hypertension; Negative for Marfan's Syndrome or Family History [facility] Medical History CAD (coronary artery disease) Atrial fibrillation Neck pain Segmental and somatic dysfunction of cervical region Degenerative disc disease, cervical HARRISON (dyspnea on exertion) Dyslipidemia Aortic stenosis Iron deficiency BPH (benign prostatic hyperplasia) History of carotid artery stenosis Type 2 diabetes mellitus Hypothyroidism Hyperlipidemia Hypertension Diabetes WILSON (iron deficiency anemia) History of kidney stones Atrial fibrillation History of migraine Seasonal allergies Home Medications ?Medication ?Instructions ?Recorded ?Last Taken ?Type atorvastatin 40 mg tablet 40 mg PO DAILY cholesterol 10/22/19 Unknown History lisinopril 2.5 mg tablet 2.5 mg PO DAILY blood pressure 07/22/22 Unknown History melatonin 5 mg capsule 5 mg PO DAILY sleep 09/18/23 Unknown History polysaccharide iron complex 150 mg 150 mg PO DAILY supplement 10/09/23 Unknown History iron capsule (Ferrex) bumetanide 2 mg tablet 2 mg PO BID water pill 11/25/23 Unknown History levothyroxine 125 mcg tablet 112 mcg PO DAILY thyroid 11/25/23 Unknown History apixaban 5 mg tablet (Eliquis) 5 mg PO BID blood thinner 03/16/24 04/25/24 History digoxin 250 mcg (0.25 mg) tablet 250 mcg PO DAILY heart rate #90 04/20/24 Unknown Rx tabs insulin degludec 200 unit/mL (3 44 unit subcut QHS diabetes 04/20/24 Unknown History mL) subcutaneous pen (Tresiba FlexTouch U-200 insulin) metoprolol tartrate 25 mg tablet 25 mg PO BID heart rate 04/20/24 Unknown History clopidogrel 75 mg tablet 75 mg PO DAILY #30 tabs 04/28/24 Unknown Rx Allergy/AdvReac Type Severity Reaction Status Date / Time alcohol AdvReac LIVER Verified 05/07/24 12:31 ISSUES Sulfa (Sulfonamide AdvReac Other Verified 05/07/24 12:31 Antibiotics) Family History Mother Cancer Father Myocardial infarction Surgical History Hx of cardiac catheterization (~04/28/24) Stented coronary artery (~04/28/24) Hx of bilateral cataract extraction History of transurethral resection of prostate History of urethral stent History of hip replacement History of knee surgery History of bilateral total hip arthroplasty Social History Smoking Status: Never smoker alcohol intake: former year quit: 1983 substance use type: does not use caffeine: No ROS ROS ED Constitutional Constitutional ED: Denies chills, fever(s), subjective or sweats Eyes Eyes: Reports none ENT ENT ED: Denies rhinorrhea or sore throat Cardiovascular Cardiovascular: Reports as per HPI; Denies orthopnea or paroxysmal nocturnal dyspnea Respiratory/Chest Respiratory/Chest: Reports dyspnea and dyspnea on exertion; Denies cough, orthopnea or paroxysmal nocturnal dyspnea Gastrointestinal Gastrointestinal: Denies abdominal pain, melena, nausea or vomiting Genitourinary Genitourinary ED: Denies dysuria, hematuria or urinary frequency Integumentary Denies rash Neurologic Neurologic: Denies headache(s) Endocrine Endocrinology: Denies cold intolerance or heat intolerance Hematologic/Lymphatic Hematologic/Lymphatic: Reports easy bruising Allergic/Immunologic Allergic/Immunologic ED: Denies mouth swelling or tongue swelling EXAM Physical Exam Const Vital Signs: 05/07/24 12:24 05/07/24 12:28 05/07/24 12:30 Temperature 96.5 F L Temperature Source Temporal Pulse Rate 85 Respiratory Rate 17 Respiratory Effort Normal Non-Labored Blood Pressure 152/61 H Blood Pressure Mean 91 Pulse Ox 95 Oxygen Delivery Method Room Air Room Air Positive well nourished and well developed General Appearance ED: well developed and NAD; Negative for pallor HEENT Reports TM's clear and moist mucous membranes normocephalic and atraumatic Tympanic Membrane ED: Yes TM's clear Eyes PERRL and EOMs intact bilaterally General Eye ED: Negative for pale conjunctiva or scleral icterus Neck no lymphadenopathy, supple and no JVD Chest Wall inspection of chest normal Resp normal respiratory effort and clear to auscultation bilaterally Cardio regular rate, S1 normal heart sound, S2 normal heart sound and no murmurs Rhythm: abnormal rhythm irregularly irregular Peripheral Pulses: pulses 2+ throughout GI normal to inspection, nondistended, normoactive bowel sounds, soft to palpation, non-tender, non-distended and no masses; Negative for hepatosplenomegaly Back/Spine no CVA tenderness Extremity Negative for normal to inspection General Extremety ED: Yes edema; Negative for pulses abnormal or tenderness General Extremity: edema; Negative for pulses abnormal Neuro oriented x3 and CN's II-XII intact bilaterally Sensorium / Orientation: awake and alert Psych mental status grossly normal Skin no rashes or lesions noted Skin Narrative: Slight discoloration of his right and left leg suggestive of venous stasis dermatitis. General Skin Exam: Negative for pallor MDM MDM MDM Narrative Medical decision making narrative: Twelve-lead EKG obtained at 12 noon reveals wide-complex V. tach rate of greater than 200. EKG prior to arrival revealed ST depression inferior lateral leads with ST elevation in aVR. EKG that was obtained upon arrival reveals atrial fibs rate of 92. QRS complexes 94 ms in duration. QT duration 3 and 72 ms. [place] is normal. There is new inferolateral ST depression compared to April 28, [address] elevation in aVR. These are new findings. Chest pain order set was initiated. Dr. Holloway was contacted. He will contact Account Manager Sales Representative to see if they can take patient to the Account Manager Sales Representative. No further treatment at this time other than what has been initiated in the emergency department. Lab Data Attestation: I reviewed the patient's lab results. Lab results narrative: CBC is unremarkable and unchanged from prior Labs: Laboratory Results - last 24 hr 05/07/24 12:16 WBC 7.2 RBC 4.62 Hgb 14.1 Hct 40.7 MCV 88.1 MCH 30.5 MCHC 34.6 RDW Std Deviation 46.5 H RDW Coeff of Cooper 14.8 H Plt Count 159 MPV 10.9 Immature Gran % (Auto) 0.300 Neut % (Auto) 62.9 Lymph % (Auto) 22.9 [place] % (Auto) 9.9 Eos % (Auto) 3.0 Baso % (Auto) 1.0 Absolute Neuts (auto) 4.6 Absolute Lymphs (auto) 1.66 Nucleated RBC % 0 Radiography Chest X-Ray - ED: 1 View and Read by ED Physician (Minimal chronic changes. Unchanged from April 28. Borderline cardiomegaly, mediastinum is unremarkable. There is no infiltrate or evidence of CHF. Osseous structures are unremarkable. This independent reviewed interpreted by me at 1250.) EKG Initial EKG: Attestation: I personally reviewed and interpreted this EKG as follows: Interpretation: Atrial Fibrillation (Documented under the MDM portion of the medical record.) Prior: Changed (April 28, 2024.) Management Discussion w/another healthcare provider: Hospitalist and Medical Device Sales Treatment and Re-Evaluation :: Dr. Duncan put in an order for patient go to Account Manager Sales Representative. Will notify hospitalist of admission. Critical Care Time Critical Care Time: Yes Critical care time (excluding procedures): 30-74 minutes (32), Including time spent: (History, physical, review of 2 EKGs prior to arrival, review of EKG upon arrival, treatment for subendocardial ischemia, consultation with cardiology and hospitalist), Discussing w/Consultants, Arranging Admission or Transfer and Performing Direct Patient Care at Bedside Discharge Plan Triage Chief Complaint: Chest Pain ED Provider: Deny Rosas Dx/Rx/DC Orders Clinical Impression: Ventricular tachycardia seen on substation operator chief, Atrial fibrillation, Hypertension, Hypothyroidism, Type 2 diabetes mellitus, History of carotid artery stenosis, Dyslipidemia, Long-term use of high-risk medication, Stented coronary artery, Subendocardial ischemia Prescriptions: No Action lisinopril 2.5 mg tablet 2.5 mg PO DAILY polysaccharide iron complex [Ferrex 150] 150 mg iron capsule 150 mg PO DAILY melatonin 5 mg capsule 5 mg PO DAILY levothyroxine 125 mcg tablet 112 mcg PO DAILY bumetanide 2 mg tablet 2 mg PO BID Eliquis 5 mg tablet 5 mg PO BID metoprolol tartrate 25 mg tablet 25 mg PO BID insulin degludec [Tresiba FlexTouch U-200] 200 unit/mL (3 mL) insulin pen 44 unit subcut QHS digoxin 250 mcg (0.25 mg) tablet 250 mcg PO DAILY Qty: 90 3RF atorvastatin 40 MG tablet 40 mg PO DAILY clopidogrel 75 mg Tablet 75 mg PO DAILY Qty: 30 11RF Primary Care Provider: Ivan Pinzon Chi Referrals: Ivan Pinozn Chi, MD [Primary Care Provider] - Print Language: Monegasque Disposition Disposition: Acute Care Hospital [facility]
--- NOTE | 2024-05-07 12:42 | RAD_ITS ---
INDICATION: chest pain EXAMINATION/TECHNIQUE: X-RAY - XR Chest 1 View COMPARISON: No relevant prior comparison study available FINDINGS: LINES/DEVICES: None. LUNGS: No consolidation, edema or effusion. No pneumothorax. MEDIASTINUM AND CARDIOVASCULAR STRUCTURES: Cardiac silhouette not enlarged. Central airways and mediastinal contour are unremarkable. BONES AND SOFT TISSUES: Unremarkable. RAD/Chest 1 View (Portable) IMPRESSION: No radiographic evidence of acute cardiopulmonary disease. Electronically Signed: Rashad Oro MD at 13:22 EDT ,
[2024-05-07 12:44] LABS: Absolute Lymphocyte Count 1.66 X10^3/uL (0.83-4.51); Absolute Neutrophil Count 4.6 X10^3/uL (2.0-7.7); Basophil# 0.07 X10^3/uL; Eosinophil# 0.22 X10^3/uL; Hematocrit 40.7 % (40-54); Hemoglobin 14.1 g/dL (13.0-16.5); Lymphocyte # 1.66 X10^3/ul (0.83-4.51); Lymphocyte % 22.9 % (19-41); Mean Corp Hgb Conc 34.6 g/dL (32-36); Mean Corpuscular Hgb 30.5 pg (27.0-32.0); Mean Corpuscular Volume 88.1 fL (80-94); Mean Platelet Vol. 10.9 fl (6.2-12.0); Monocyte# 0.72 X10^3/uL; Monocyte% 9.9 % (0-10); NRBC Flagged by Analyzer 0 % (0-5); Neutrophil # 4.55 X10^3/uL (2.7-7.7); Neutrophil % 62.9 % (47-70); Platelet Count 159 K/mm3 (150-450); RBC Distribution Width CV 14.8 % (11.6-14.6); RBC Distribution Width SD 46.5 fl (35.1-43.9); Red Blood Count 4.62 M/mm3 (4.6-6.2); White Blood Count 7.2 K/mm3 (4.4-11.0)
[2024-05-07 13:01] LABS: Anion Gap 11 (5-15); BUN 19 mg/dL (7-18); BUN/Creat Ratio 17.1 RATIO (10-20); Calcium,Total 9.6 mg/dL (8.5-10.1); Chloride 106 mmol/L (98-107); Creatinine, Serum 1.11 mg/dL (0.70-1.30); EST Glomerular Filtration Rate 68 mL/min (>60); Est Glom Filt Rate - Afr Amer 83 mL/min (>60); Glucose 267 mg/dL (74-106); Potassium 3.6 mmol/L (3.5-5.1); Sodium Level 139 mmol/L (136-145); Troponin-I HS (w/2H Reflex) 62 pg/mL (3.0-78.0)
--- NOTE | 2024-05-07 13:13 | HP.PCM.HOS_ITS ---
HPI - General General Date of Admission: 05/07/24 Date of Service: 05/07/24 Chief Complaint: Chest pain HPI Narrative COLBY RIVERA, is a 78 M with history of A-fib, hypertension, BPH, hypothyroidism, diabetes and coronary artery disease with LAD stent 04/28/2024 who presented to [facility] ED 05/07/2024 due to substernal chest pain earlier today and diaphoresis, squad called and patient found to be in V. tach but this resolved and subsequent EKG showed new lateral ST depressions. Troponin normal but given recent stent and history cardiology contacted and patient taken from ED to [facility]. Patient evaluated prior to cardiac cath while he was still in the ED. He reports that since his stent on the he has been in his usual health and taking his medications until an hour before arrival when he was getting ready to go shopping and had substernal chest discomfort and felt sweaty and unwell, felt it lasted around 20 to 30 minutes and in the ED symptoms completely resolved. Denied any present shortness of breath and ROS otherwise negative. [facility] Medical History CAD (coronary artery disease) Atrial fibrillation Neck pain Segmental and somatic dysfunction of cervical region Degenerative disc disease, cervical HARRISON (dyspnea on exertion) Dyslipidemia Aortic stenosis Iron deficiency BPH (benign prostatic hyperplasia) History of carotid artery stenosis Type 2 diabetes mellitus Hypothyroidism Hyperlipidemia Hypertension Diabetes WILSON (iron deficiency anemia) History of kidney stones Atrial fibrillation History of migraine Seasonal allergies Home Medications ?Medication ?Instructions ?Recorded ?Last Taken ?Type atorvastatin 40 mg tablet 40 mg PO DAILY cholesterol 10/22/19 05/06/24 History lisinopril 2.5 mg tablet 2.5 mg PO DAILY blood pressure 07/22/22 05/06/24 History melatonin 5 mg capsule 5 mg PO DAILY sleep 09/18/23 Unknown History polysaccharide iron complex 150 mg 150 mg PO DAILY supplement 10/09/23 05/06/24 History iron capsule (Ferrex) bumetanide 2 mg tablet 2 mg PO DAILY water pill 11/25/23 05/06/24 History levothyroxine 125 mcg tablet 125 mcg PO DAILY thyroid 11/25/23 Unknown History apixaban 5 mg tablet (Eliquis) 5 mg PO BID blood thinner 03/16/24 05/06/24 History digoxin 250 mcg (0.25 mg) tablet 250 mcg PO DAILY heart rate #90 04/20/24 05/06/24 Rx tabs insulin degludec 200 unit/mL (3 44 unit subcut [facility] diabetes 04/20/24 05/06/24 History mL) subcutaneous pen (Tresiba FlexTouch U-200 insulin) metoprolol tartrate 25 mg tablet 25 mg PO BID heart rate 04/20/24 05/06/24 History clopidogrel 75 mg tablet 75 mg PO DAILY #30 tabs 04/28/24 05/06/24 Rx mecobalamin (vitamin B12) 1,000 1,000 mcg PO DAILY 05/07/24 05/06/24 History mcg chewable tablet metformin 1,000 mg tablet 1,000 mg PO BID 05/07/24 05/06/24 History potassium chloride 20 mEq 20 meq PO BID 05/07/24 05/06/24 History tablet,extended release(part/cryst) (Klor-Con M) Allergy/AdvReac Type Severity Reaction Status Date / Time alcohol AdvReac LIVER Verified 05/07/24 12:31 ISSUES Sulfa (Sulfonamide AdvReac Other Verified 05/07/24 12:31 Antibiotics) Family History Mother Cancer Father Myocardial infarction Surgical History Hx of cardiac catheterization (~04/28/24) Stented coronary artery (~04/28/24) Hx of bilateral cataract extraction History of transurethral resection of prostate History of urethral stent History of hip replacement History of knee surgery History of bilateral total hip arthroplasty Social History Smoking Status: Never smoker alcohol intake: former year quit: 1983 substance use type: does not use caffeine: No ROS ROS Narrative General: Denies fever/chills HENT: Denies headache, denies stuffy nose, denies sore throat EYES: Denies changes in vision Resp: Denies cough, denies shortness of breath Cardiac: Chest pain resolved GI: Denies abdominal pain, denies changes in bowel, denies nausea/vomiting : Denies changes in urination Extremity: Denies swelling MSK: Denies weakness Neuro: Denies any numbness/tingling Heme: Denies any bleeding or bruising Skin: Denies rashes Psychiatric: No complaints voiced Vital Signs Vital Signs Vital Signs: 05/07/24 12:24 05/07/24 12:28 05/07/24 12:30 Temperature 96.5 F L Temperature Source Temporal Pulse Rate 85 Respiratory Rate 17 Respiratory Effort Normal Non-Labored Blood Pressure 152/61 H Blood Pressure Mean 91 Pulse Ox 95 Oxygen Delivery Method Room Air Room Air 05/07/24 13:11 Temperature 98 F Temperature Source Pulse Rate 79 Respiratory Rate 15 Respiratory Effort Blood Pressure 136/60 H Blood Pressure Mean 85 Pulse Ox 95 Oxygen Delivery Method Weight Weight: 107.8 kg Body Mass Index (BMI) 35.1 Physical Exam Narrative General: Alert, oriented, no apparent distress HEENT: Atraumatic, normocephalic Eyes: Anicteric, normal conjunctiva, extraocular movements grossly intact Neck: Supple Respiratory: Clear to auscultation bilaterally, normal respiratory effort Cardiovascular: regular rate GI: Soft, nontender, nondistended Extremities: No edema Musculoskeletal: Moving all extremities Neuro: No overt focal neurological deficits Skin: No rashes appreciated Psych: Cooperative Results Lab / Micro Data 05/07/24 12:16 05/07/24 12:16 Labs: Laboratory Results - last 24 hr 05/07/24 12:16: WBC 7.2, RBC 4.62, Hgb 14.1, Hct 40.7, MCV 88.1, MCH 30.5, MCHC 34.6, RDW Std Deviation 46.5 H, RDW Coeff of Cooper 14.8 H, Plt Count 159, MPV 10.9, Immature Gran % (Auto) 0.300, Neut % (Auto) 62.9, Lymph % (Auto) 22.9, [place] % (Auto) 9.9, Eos % (Auto) 3.0, Baso % (Auto) 1.0, Absolute Neuts (auto) 4.6, Absolute Lymphs (auto) 1.66, Nucleated RBC % 0, Sodium 139, Potassium 3.6, Chloride 106, Carbon Dioxide 22.0, Anion Gap 11, BUN 19 H, Creatinine 1.11, Estim Creat Clear Calc 68.50, Est GFR (MDRD) Af Amer 83, Est GFR (MDRD) Non-Af 68, BUN/Creatinine Ratio 17.1, Glucose 267 H, Calcium 9.6, Troponin I High Sens 62 Assessment & Plan Assessment/Plan (1) Chest pain: (2) Wide-complex tachycardia: (3) Type 2 diabetes mellitus: (4) Hypothyroidism: (5) Hypertension: (6) CAD (coronary artery disease): (7) BPH (benign prostatic hyperplasia): (8) Atrial fibrillation: PLAN: Plan #Chest pain and wide complex tachycardia in setting of LAD stent 04/28/24 -Pt taken to [facility] but no acute process noted -Discussed with cardiology, it was recommended to give amnio bolus and start drip and DC digoxin -Continue statin -Continue beta-chata -Continue Eliquis and patient's other home medications -cardiac diet -Will monitor on telemetry -Mg slightly low, will replace with goal of mag of 2, recheck in AM #Type 2 diabetes mellitus -Decrease long-acting insulin and adjust pending patient's diet -Glucose checks and sliding scale insulin -Hold metformin #Hypothyroidism -Continue Synthroid #Hypertension -Continue lisinopril and beta-chata #DVT ppx: Silver Wilson MD Charges/Coding Visit Charges Inpatient E&M: 49264 Init Hosp L1
--- NOTE | 2024-05-07 14:12 | CON.PCM.CA_ITS ---
Assessment & Plan Assessment/Plan (1) Ventricular tachycardia seen on electronic device monitor: PLAN: He was noted to have wide-complex tachycardia 6 which is regular suggestive of ventricular tachycardia. My recommendation at this time will be for him to have his coronaries reevaluated. He was just taken to the cardiac catheterization lab and his previous stent was noted to be widely patent with no significant high-grade stenosis noted. I would recommend putting him on intravenous amiodarone overnight and then oral amiodarone. Outpatient follow-up with human resources trainee. (2) Stented coronary artery: PLAN: His recent stenting of the left anterior descending artery was noted to be patent. (3) CAD (coronary artery disease): PLAN: He does have coronary artery disease with mild disease noted in the circumflex artery and the right coronary artery. No intervention at this particular time. (4) Aortic stenosis: PLAN: He appears to have mild aortic stenosis based on the cardiac catheterization pullback as well as the echocardiogram. He will be continue with current medical therapy. (5) Atrial fibrillation: PLAN: He does have chronic persistent atrial fibrillation. I would recommend maximizing his beta-chata, discontinuing the digoxin, continuing Eliquis and the amiodarone. He has seen the human resources trainee in the past and they have not recommended ablation. Thank you for allowing me to participate in the care of your patient. Please don't hesitate to call if any issues arise. HPI Consult Data Date of Consult: 05/07/24 HPI Narrative HPI Narrative: COLBY RIVERA, is a 78 M who presents to the emergency room with chest discomfort and wide-complex tachycardia felt to be ventricular tachycardia. He recently was in the hospital underwent a cardiac catheterization with demonstrated severe triple-vessel disease for which he underwent angioplasty and stenting of the left anterior descending artery. He presented to the emergency room was noted to have similar discomfort I was called and the decision was made to take him to the cardiac catheterization lab. [facility] Medical History CAD (coronary artery disease) Atrial fibrillation Neck pain Segmental and somatic dysfunction of cervical region Degenerative disc disease, cervical HARRISON (dyspnea on exertion) Dyslipidemia Aortic stenosis Iron deficiency BPH (benign prostatic hyperplasia) History of carotid artery stenosis Type 2 diabetes mellitus Hypothyroidism Hyperlipidemia Hypertension Diabetes WILSON (iron deficiency anemia) History of kidney stones Atrial fibrillation History of migraine Seasonal allergies Home Medications ?Medication ?Instructions ?Recorded ?Last Taken ?Type atorvastatin 40 mg tablet 40 mg PO DAILY cholesterol 10/22/19 05/06/24 History lisinopril 2.5 mg tablet 2.5 mg PO DAILY blood pressure 07/22/22 05/06/24 History melatonin 5 mg capsule 5 mg PO DAILY sleep 09/18/23 Unknown History polysaccharide iron complex 150 mg 150 mg PO DAILY supplement 10/09/23 05/06/24 History iron capsule (Ferrex) bumetanide 2 mg tablet 2 mg PO DAILY water pill 11/25/23 05/06/24 History levothyroxine 125 mcg tablet 125 mcg PO DAILY thyroid 11/25/23 Unknown History apixaban 5 mg tablet (Eliquis) 5 mg PO BID blood thinner 03/16/24 05/06/24 History digoxin 250 mcg (0.25 mg) tablet 250 mcg PO DAILY heart rate #90 04/20/24 05/06/24 Rx tabs insulin degludec 200 unit/mL (3 44 unit subcut [facility] diabetes 04/20/24 05/06/24 History mL) subcutaneous pen (Tresiba FlexTouch U-200 insulin) metoprolol tartrate 25 mg tablet 25 mg PO BID heart rate 04/20/24 05/06/24 History clopidogrel 75 mg tablet 75 mg PO DAILY #30 tabs 04/28/24 05/06/24 Rx mecobalamin (vitamin B12) 1,000 1,000 mcg PO DAILY 05/07/24 05/06/24 History mcg chewable tablet metformin 1,000 mg tablet 1,000 mg PO BID 05/07/24 05/06/24 History potassium chloride 20 mEq 20 meq PO BID 05/07/24 05/06/24 History tablet,extended release(part/cryst) (Klor-Con M) Allergy/AdvReac Type Severity Reaction Status Date / Time alcohol AdvReac LIVER Verified 05/07/24 12:31 ISSUES Sulfa (Sulfonamide AdvReac Other Verified 05/07/24 12:31 Antibiotics) Family History Mother Cancer Father Myocardial infarction Surgical History Hx of cardiac catheterization (~04/28/24) Stented coronary artery (~04/28/24) Hx of bilateral cataract extraction History of transurethral resection of prostate History of urethral stent History of hip replacement History of knee surgery History of bilateral total hip arthroplasty Social History Smoking Status: Never smoker alcohol intake: former year quit: 1983 substance use type: does not use caffeine: No Risk Stratification Risk Stratification Applicable: Yes Age >/= 65: Yes >/= 3 CAD Risk Factors (HTN, HLD, DM, family hx of CAD, or current smoker): Yes Aspirin Use in the Past 7 Days: Yes Severe Angina (>/= episodes in 24 hours): No EKG ST Changes >/= 0.5mm: No Positive Cardiac Marker: No HARLEEN Risk Stratification Score: 3 HARLEEN % Risk: 13% Risk Objective Data Vital Signs: Vital Signs Temp Pulse Resp BP Pulse Ox O2 Del Method 98 F 79 15 136/60 H 95 Room Air 05/07/24 13:11 05/07/24 13:11 05/07/24 13:11 05/07/24 13:11 05/07/24 13:11 05/07/24 12:30 Oxygen Delivery Method Room Air Weight: 237 lb 10.533 oz Body Mass Index (BMI) 35.1 Intake & Output: Intake and Output for Last 24 Hours 05/05/24 05/06/24 05/07/24 23:59 23:59 23:59 Intake Total 0 / 0 Balance 0 / 0 Lab / Micro Data 05/07/24 12:16 05/07/24 12:16 Labs: Laboratory Results - last 24 hr 05/07/24 12:16: WBC 7.2, RBC 4.62, Hgb 14.1, Hct 40.7, MCV 88.1, MCH 30.5, MCHC 34.6, RDW Std Deviation 46.5 H, RDW Coeff of Cooper 14.8 H, Plt Count 159, MPV 10.9, Immature Gran % (Auto) 0.300, Neut % (Auto) 62.9, Lymph % (Auto) 22.9, [place] % (Auto) 9.9, Eos % (Auto) 3.0, Baso % (Auto) 1.0, Absolute Neuts (auto) 4.6, Absolute Lymphs (auto) 1.66, Nucleated RBC % 0, Sodium 139, Potassium 3.6, Chloride 106, Carbon Dioxide 22.0, Anion Gap 11, BUN 19 H, Creatinine 1.11, Estim Creat Clear Calc 68.50, Est GFR (MDRD) Af Amer 83, Est GFR (MDRD) Non-Af 68, BUN/Creatinine Ratio 17.1, Glucose 267 H, Calcium 9.6, Troponin I High Sens 62 Cardiology Labs/Tests 05/07/24 12:16: WBC 7.2, RBC 4.62, Hgb 14.1, Hct 40.7, MCV 88.1, MCH 30.5, MCHC 34.6, Plt Count 159, MPV 10.9, Immature Gran % (Auto) 0.300, Neut % (Auto) 62.9, Lymph % (Auto) 22.9, [place] % (Auto) 9.9, Eos % (Auto) 3.0, Baso % (Auto) 1.0, Absolute Neuts (auto) 4.6, Nucleated RBC % 0, Sodium 139, Potassium 3.6, Chloride 106, Carbon Dioxide 22.0, Anion Gap 11, BUN 19 H, Creatinine 1.11, Est GFR (MDRD) Af Amer 83, Est GFR (MDRD) Non-Af 68, BUN/Creatinine Ratio 17.1, G lucose 267 H, Calcium 9.6 Rhythm: EKG: Initial EKG demonstrated wide-complex tachycardia with ventricular concordance with a rate of 181 bpm consistent with ventricular tachycardia. ECHO: Stress Test: Cardiac Cath: PCI: CT Surgery: Holter monitor: EPS: PPM: CXR: Chest CT Scan: Radiography Diagnostic Testing: Radiology Impression Chest X-Ray 05/07/24 12:42 IMPRESSION: No radiographic evidence of acute cardiopulmonary disease. Electronically Signed: Rashad Oro MD at 13:22 EDT ,
[2024-05-07 14:39] LABS: Reflex Troponin-HS? (from REC) Y
[2024-05-07 14:50] LABS: Magnesium 1.7 mg/dL (1.6-2.6)
[2024-05-07] MEDS: Amiodarone 150 MG in Dextrose 5%-Water (100mL Bag) 100 ML 600 MG IV BOLUS (16:19)
[2024-05-07] MEDS: Amiodarone 360 MG in Dextrose 5% Viaflo Bag 192.8 ML 33.3 MG CONT INF (16:33)
[2024-05-07] MEDS: Magnesium Sulfate 2 GM in Dextrose 5%-Water (100mL Bag) 100 ML IV (17:06)
[2024-05-07] MEDS: 0.9% Saline Lock 10 ML Syringe IV (17:06)
[2024-05-07 17:56] LABS: Troponin-I HS 5771 pg/mL (3.0-78.0)
--- NOTE | 2024-05-07 18:03 | CL.D_ITS ---
Patient Name: COLBY RIVERA Study Date: 05/07/2024 Performing: Julien Duncan MD Ht: 69 inches 175.26 cm : 1945 Wt: 238 lbs 107.8 kg Age: 78 Gender: male BSA: 2.22 PROCEDURE(S) PERFORMED [id number])LHC/COR/LV CLINICAL PROFILE AND INDICATIONS Indications: Cardiac Arrythmia Heart Failure: None Stress/Imaging Stress/Image Study Performed: No CAD Presentations: Other: tachycardia CONCLUSIONS Previously placed stent in the left anterior descending artery is noted to be patent with mild disease noted in the circumflex artery and right coronary artery which is nonobstructive. RECOMMENDATIONS DESCRIPTION OF PROCEDURE The patient arrived to the procedure lab. The risks and benefits of the procedure as well as a full description of our services here and current unavailability of surgical backup were fully explained to the patient and/or their significant other prior to the catheterization. The Timeout was completed, verifying the correct patient and procedure. The patient's procedural site was prepped and draped in the usual fashion. Local anesthetic was given subcutaneously to right radial region with Lidocaine 2%. Using a modified Seldinger technique, arterial access was obtained via the right radial artery, a 6Fr sheath was inserted. Right Coronary Artery selective angiography was then performed in multiple views using a 5 Fr. 4.0 [place] catheter. Left Coronary Artery selective angiography was performed in multiple views using a 5 Fr. 4.0 [place] catheter. Left Ventriculography was performed in LANDIS projection using a 5 Fr. Pig[place] catheter. LV to AO pullback pressures were then recorded.The arterial sheath was pulled and a TR Band was applied for hemostasis CORONARY ANGIOGRAPHY DOMINANCE: Right Dominant LEFT HEART ASSESSMENT Left Ventricular Ejection Fraction: by LV Gram 60 % Normal LV wall motion Normal Left Ventricular systolic function LEFT MAIN: Angiographically normal LEFT ANTERIOR DESCENDING ARTERY: Previously placed stent in the left anterior descending artery is noted to be patent with mild distal disease CIRCUMFLEX ARTERY: Mild luminal irregularities less than 30% RIGHT CORONARY ARTERY: Mild luminal irregularities less than 30% COMPLICATIONS No Complications PROCEDURE MEDICATIONS Versed 1 mg IV Fentanyl 50 mcg IV Oxygen: 2 L/min via nasal cannula Heparin given IA 05/07/2024 14:20:06 Verapamil 2.5mg, Ntg 200mcgs, 2000 units of Heparin given IA 05/07/2024 14:20:06 SUMMARY OF HEMODYNAMIC DATA Time AIR REST ECG 13:50:14 AO 137/61 (90) SA 14:20:28 LV 161/5, 11 14:32:00 LV 172/4, 12 14:32:12 LV 155/6, 11 14:33:23 LV 158/6, 11 14:33:26 LVp 161/13, 14 14:33:31 AOp 130/54 (83) 14:33:38 Signed By Julien Duncan MD On 05/07/2024 18:02:14 Julien Duncan MD
[2024-05-07] MEDS: Magnesium Sulfate 2 GM in 0.9% Normal Saline (100mL Bag) 100 ML IV (18:57)
[2024-05-07] MEDS: 0.9% Normal Saline (1000mL) 1,000 ML 75 ML IV (19:00)
[2024-05-07] MEDS: MELATONIN 10 MG TABLET 5 MG PO (21:10)
[2024-05-07] MEDS: Metoprolol Tartrate 25 MG Tablet PO (21:10)
[2024-05-07] MEDS: APIXABAN 5 MG TABLET PO (21:11)
[2024-05-07] MEDS: Insulin Glargine-YFGN 100 UNIT/ML Pen 30 UNIT SC (21:13)
[2024-05-07 21:37] LABS: Bedside Glucose 267 mg/dL (74-106)
[2024-05-07] MEDS: Amiodarone 360 MG in Dextrose 5% Viaflo Bag 192.8 ML 16.7 MG CONT INF (22:10)
[2024-05-08] VITALS (12 sets, daily range): BP systolic 132–161; BP diastolic 50–151; PULSE 51–73; RESP 6–19; TEMP 36.5–36.7; O2SAT 92–96; BMI 34.8
[2024-05-08] MEDS: Levothyroxine 125 MCG Tablet PO (06:10)
[2024-05-08] MEDS: Insulin Lispro 100 UNIT/ML INSULN.PEN SC (06:13)
[2024-05-08 06:35] LABS: Bedside Glucose 198 mg/dL (74-106)
[2024-05-08 07:32] LABS: Absolute Lymphocyte Count 1.25 X10^3/uL (0.83-4.51); Absolute Neutrophil Count 4.1 X10^3/uL (2.0-7.7); Basophil# 0.04 X10^3/uL; Basophil% 0.6 % (0-1); Eosinophil# 0.21 X10^3/uL; Eosinophils% 3.4 % (0-5); Hematocrit 36.4 % (40-54); Hemoglobin 12.3 g/dL (13.0-16.5); Lymphocyte # 1.25 X10^3/ul (0.83-4.51); Lymphocyte % 20.1 % (19-41); Mean Corp Hgb Conc 33.8 g/dL (32-36); Mean Corpuscular Hgb 30.8 pg (27.0-32.0); Mean Corpuscular Volume 91.2 fL (80-94); Mean Platelet Vol. 11.2 fl (6.2-12.0); Monocyte# 0.58 X10^3/uL; Monocyte% 9.3 % (0-10); NRBC Flagged by Analyzer 0 % (0-5); Neutrophil # 4.11 X10^3/uL (2.7-7.7); Neutrophil % 66.3 % (47-70); Platelet Count 124 K/mm3 (150-450); RBC Distribution Width CV 14.9 % (11.6-14.6); RBC Distribution Width SD 49.9 fl (35.1-43.9); Red Blood Count 3.99 M/mm3 (4.6-6.2); White Blood Count 6.2 K/mm3 (4.4-11.0)
[2024-05-08 08:06] LABS: AST(SGOT) 35 U/L (15-37); Alanine Aminotransfer ALT/SGPT 20 U/L (16-61); Albumin, Serum 3.2 g/dL (3.2-5.0); Alkaline Phosphatase 101 U/L (45-117); Anion Gap 5 (5-15); BUN 15 mg/dL (7-18); BUN/Creat Ratio 15.9 RATIO (10-20); Calcium,Total 8.7 mg/dL (8.5-10.1); Chloride 107 mmol/L (98-107); Creatinine, Serum 0.94 mg/dL (0.70-1.30); EST Glomerular Filtration Rate 82 mL/min (>60); Est Glom Filt Rate - Afr Amer 100 mL/min (>60); Estimated Creatinine Clearance 80.62 ml/min; Globulin 3.3 g/dL (2.2-4.2); Glucose 212 mg/dL (74-106); Magnesium 2.4 mg/dL (1.6-2.6); Phosphorus 2.4 mg/dL (2.5-4.9); Potassium 3.9 mmol/L (3.5-5.1); Protein, Total 6.5 g/dL (6.4-8.2); Sodium Level 138 mmol/L (136-145)
[2024-05-08 08:11] LABS: Digoxin Level 1.05 ng/mL (0.80-2.00)
--- NOTE | 2024-05-08 08:17 | PN.HOSP_ITS ---
Reason for Visit Reason for Visit: Diagnoses Hypothyroidism, unspecified (05/07/24) Type 2 diabetes mellitus without complications (05/07/24) Essential (primary) hypertension (05/07/24) Atherosclerotic heart disease of [place] coronary artery without angina pectoris (05/07/24) Nonrheumatic aortic (valve) stenosis (05/07/24) Ventricular tachycardia, unspecified (05/07/24) Unspecified atrial fibrillation (05/07/24) Benign prostatic hyperplasia without lower urinary tract symptoms (05/07/24) Tachycardia, unspecified (05/07/24) Chest pain, unspecified (05/07/24) Presence of coronary angioplasty implant and graft (05/07/24) Objective Data Objective Data Vital Signs: Vital Signs Temp Pulse Resp BP Pulse Ox O2 Del Method 98.0 F 51 L 18 132/59 H 96 Room Air 05/08/24 04:00 05/08/24 08:00 05/08/24 08:00 05/08/24 08:00 05/08/24 08:00 05/08/24 08:00 Oxygen Delivery Method Room Air Weight: 236 lb 1.841 oz Body Mass Index (BMI) 34.8 Intake & Output: Intake and Output for Last 24 Hours 05/06/24 05/07/24 05/08/24 23:59 23:59 23:59 Intake Total 957.22 / 973.92 1150.3 / 1150.3 Output Total 275 / 275 175 / 175 Balance 682.22 / 698.92 975.3 / 975.3 Lab / Micro Data 05/08/24 06:50 05/08/24 06:50 Labs: Laboratory Results - last 24 hr 05/07/24 12:16: WBC 7.2, RBC 4.62, Hgb 14.1, Hct 40.7, MCV 88.1, MCH 30.5, MCHC 34.6, RDW Std Deviation 46.5 H, RDW Coeff of [place] 14.8 H, Plt Count 159, MPV 10.9, Immature Gran % (Auto) 0.300, Neut % (Auto) 62.9, Lymph % (Auto) 22.9, [place] % (Auto) 9.9, Eos % (Auto) 3.0, Baso % (Auto) 1.0, Absolute Neuts (auto) 4.6, Absolute Lymphs (auto) 1.66, Nucleated RBC % 0, Sodium 139, Potassium 3.6, Chloride 106, Carbon Dioxide 22.0, Anion Gap 11, BUN 19 H, Creatinine 1.11, Estim Creat Clear Calc 68.50, Est GFR (MDRD) Af Amer 83, Est GFR (MDRD) Non-Af 68, BUN/Creatinine Ratio 17.1, Glucose 267 H, Calcium 9.6, Magnesium 1.7, Troponin I High Sens 62 05/07/24 17:06: Troponin I High Sens 5771 H* 05/07/24 21:13: POC Glucose 267 H 05/08/24 06:08: POC Glucose 198 H 05/08/24 06:50: WBC 6.2, RBC 3.99 L, Hgb 12.3 L, Hct 36.4 L, MCV 91.2, MCH 30.8, MCHC 33.8, RDW Std Deviation 49.9 H, RDW Coeff of [place] 14.9 H, Plt Count 124 L, MPV 11.2, Immature Gran % (Auto) 0.300, Neut % (Auto) 66.3, Lymph % (Auto) 20.1, [place] % (Auto) 9.3, Eos % (Auto) 3.4, Baso % (Auto) 0.6, Absolute Neuts (auto) 4.1, Absolute Lymphs (auto) 1.25, Nucleated RBC % 0, Sodium 138, Potassium 3.9, Chloride 107, Carbon Dioxide 26.0, Anion Gap 5, BUN 15, Creatinine 0.94, Estim Creat Clear Calc 80.62, Est GFR (MDRD) Af Amer 100, Est GFR (MDRD) Non-Af 82, BUN/Creatinine Ratio 15.9, Glucose 212 H, Calcium 8.7, Phosphorus 2.4 L, Magnesium 2.4, Total Bilirubin 1.00, AST 35, ALT 20, Alkaline Phosphatase 101, Total Protein 6.5, Albumin 3.2, Globulin 3.3, Albumin/Globulin Ratio 1.0, Digoxin 1.05 Radiography Diagnostic Testing: Radiology Impression Chest X-Ray 05/07/24 12:42 IMPRESSION: No radiographic evidence of acute cardiopulmonary disease. Electronically Signed: Rashad Oro MD at 13:22 EDT , Physical Exam Narrative Chest pain describes substernal with diaphoresis Assessment & Plan Assessment/Plan (1) Chest pain: (2) Wide-complex tachycardia: (3) Type 2 diabetes mellitus: (4) Hypothyroidism: (5) Hypertension: (6) CAD (coronary artery disease): (7) BPH (benign prostatic hyperplasia): (8) Atrial fibrillation: PLAN: Plan 78-year-old gentleman was admitted with substernal chest pain/discomfort with wide-complex tachycardia which was felt to be ventricular tachycardia. He was recently in the hospital and had cardiac cath which showed severe triple-vessel disease for which he had PCI/stenting of LAD #Chest pain and wide complex tachycardia in setting of LAD stent 04/28/24 -Pt taken to supervisor dental laboratory but no acute process noted -Discussed with cardiology, it was recommended to give amnio bolus and start drip and DC digoxin -Continue statin -Continue beta-chata -Continue Eliquis and patient's other home medications -cardiac diet -Will monitor on telemetry -Mg slightly low, will replace with goal of mag of 2, recheck in AM #Type 2 diabetes mellitus -Decrease long-acting insulin and adjust pending patient's diet -Glucose checks and sliding scale insulin -Hold metformin #Hypothyroidism -Continue Synthroid #Hypertension -Continue lisinopril and beta-chata #DVT ppx: Silver Wilson MD
[2024-05-08] MEDS: 0.9% Saline Lock 10 ML Syringe IV (08:20)
--- NOTE | 2024-05-08 08:34 | PCM.PN.CARD ---
Subjective Subjective Patient seen and evaluated. Doing better. No arrhythmias overnight. Objective Data Vital Signs: Vital Signs Temp Pulse Resp BP Pulse Ox O2 Del Method 98.0 F 51 L 18 132/59 H 96 Room Air 05/08/24 04:00 05/08/24 08:00 05/08/24 08:00 05/08/24 08:00 05/08/24 08:00 05/08/24 08:00 Oxygen Delivery Method Room Air Weight: 236 lb 1.841 oz Body Mass Index (BMI) 34.8 Intake & Output: Intake and Output for Last 24 Hours 05/06/24 05/07/24 05/08/24 23:59 23:59 23:59 Intake Total 957.22 / 973.92 1155.87 / 1155.87 Output Total 275 / 275 175 / 175 Balance 682.22 / 698.92 980.87 / 980.87 Lab / Micro Data 05/08/24 06:50 05/08/24 06:50 Labs: Laboratory Results - last 24 hr 05/07/24 12:16: WBC 7.2, RBC 4.62, Hgb 14.1, Hct 40.7, MCV 88.1, MCH 30.5, MCHC 34.6, RDW Std Deviation 46.5 H, RDW Coeff of Cooper 14.8 H, Plt Count 159, MPV 10.9, Immature Gran % (Auto) 0.300, Neut % (Auto) 62.9, Lymph % (Auto) 22.9, [place] % (Auto) 9.9, Eos % (Auto) 3.0, Baso % (Auto) 1.0, Absolute Neuts (auto) 4.6, Absolute Lymphs (auto) 1.66, Nucleated RBC % 0, Sodium 139, Potassium 3.6, Chloride 106, Carbon Dioxide 22.0, Anion Gap 11, BUN 19 H, Creatinine 1.11, Estim Creat Clear Calc 68.50, Est GFR (MDRD) Af Amer 83, Est GFR (MDRD) Non-Af 68, BUN/Creatinine Ratio 17.1, Glucose 267 H, Calcium 9.6, Magnesium 1.7, Troponin I High Sens 62 05/07/24 17:06: Troponin I High Sens 5771 H* 05/07/24 21:13: POC Glucose 267 H 05/08/24 06:08: POC Glucose 198 H 05/08/24 06:50: WBC 6.2, RBC 3.99 L, Hgb 12.3 L, Hct 36.4 L, MCV 91.2, MCH 30.8, MCHC 33.8, RDW Std Deviation 49.9 H, RDW Coeff of [place] 14.9 H, Plt Count 124 L, MPV 11.2, Immature Gran % (Auto) 0.300, Neut % (Auto) 66.3, Lymph % (Auto) 20.1, [place] % (Auto) 9.3, Eos % (Auto) 3.4, Baso % (Auto) 0.6, Absolute Neuts (auto) 4.1, Absolute Lymphs (auto) 1.25, Nucleated RBC % 0, Sodium 138, Potassium 3.9, Chloride 107, Carbon Dioxide 26.0, Anion Gap 5, BUN 15, Creatinine 0.94, Estim Creat Clear Calc 80.62, Est GFR (MDRD) Af Amer 100, Est GFR (MDRD) Non-Af 82, BUN/Creatinine Ratio 15.9, Glucose 212 H, Calcium 8.7, Phosphorus 2.4 L, Magnesium 2.4, Total Bilirubin 1.00, AST 35, ALT 20, Alkaline Phosphatase 101, Total Protein 6.5, Albumin 3.2, Globulin 3.3, Albumin/Globulin Ratio 1.0, Digoxin 1.05 Cardiology Labs/Tests 05/07/24 12:16: WBC 7.2, RBC 4.62, Hgb 14.1, Hct 40.7, MCV 88.1, MCH 30.5, MCHC 34.6, Plt Count 159, MPV 10.9, Immature Gran % (Auto) 0.300, Neut % (Auto) 62.9, Lymph % (Auto) 22.9, [place] % (Auto) 9.9, Eos % (Auto) 3.0, Baso % (Auto) 1.0, Absolute Neuts (auto) 4.6, Nucleated RBC % 0, Sodium 139, Potassium 3.6, Chloride 106, Carbon Dioxide 22.0, Anion Gap 11, BUN 19 H, Creatinine 1.11, Est GFR (MDRD) Af Amer 83, Est GFR (MDRD) Non-Af 68, BUN/Creatinine Ratio 17.1, Glucose 267 H, Calcium 9.6, Magnesium 1.7 07/06/24 06:50: WBC 6.2, RBC 3.99 L, Hgb 12.3 L, Hct 36.4 L, MCV 91.2, MCH 30.8, MCHC 33.8, Plt Count 124 L, MPV 11.2, Immature Gran % (Auto) 0.300, Neut % (Auto) 66.3, Lymph % (Auto) 20.1, [place] % (Auto) 9.3, Eos % (Auto) 3.4, Baso % (Auto) 0.6, Absolute Neuts (auto) 4.1, Nucleated RBC % 0, Sodium 138, Potassium 3.9, Chloride 107, Carbon Dioxide 26.0, Anion Gap 5, BUN 15, Creatinine 0.94, Est GFR (MDRD) Af Amer 100, Est GFR (MDRD) Non-Af 82, BUN/Creatinine Ratio 15.9, Glucose 212 H, Calcium 8.7, Phosphorus 2.4 L, Magnesium 2.4, Total Bilirubin 1.00, Digoxin 1.05 Rhythm: EKG: ECHO: Stress Test: Cardiac Cath: PCI: CT Surgery: Holter monitor: EPS: PPM: CXR: Chest CT Scan: Radiography Diagnostic Testing: Radiology Impression Chest X-Ray 05/07/24 12:42 IMPRESSION: No radiographic evidence of acute cardiopulmonary disease. Electronically Signed: Rashad Oro MD at 13:22 EDT , Physical Exam Const alert, oriented x3 and no apparent distress General Appearance: cooperative HEENT hearing grossly normal bilaterally Head and Scalp: atraumatic Eyes EOMs intact bilaterally Neck General: normal visual inspection Chest inspection of chest normal and palpation of chest normal Resp normal respiratory effort Auscultation: clear to auscultation bilaterally Cardio regular rate, regular rhythm, S1 normal heart sound and S2 normal heart sound Jugular Venous Distention: JVD GI normal to inspection, nondistended, normoactive bowel sounds Extremity normal capillary refill and no pedal edema Peripheral Pulses: Yes pulses 2+ throughout and femoral pulses present Skin no rashes or lesions noted Neuro oriented x3 and CN's II-XII intact bilaterally Psych Appearance: grossly normal and appropriate Assessment & Plan Assessment/Plan (1) Ventricular tachycardia seen on barrel washer machine: PLAN: He was noted to have wide-complex tachycardia which is regular suggestive of ventricular tachycardia. It did not appear to be ischemic in origin as his stent was noted to be patent. He was given amiodarone overnight Plan number to discharge him on 200 mg of p.o. amiodarone and for outpatient follow-up with EP. (2) Stented coronary artery: PLAN: His recent stenting of the left anterior descending artery was noted to be patent. (3) CAD (coronary artery disease): PLAN: He does have coronary artery disease with mild disease noted in the circumflex artery and the right coronary artery. No intervention at this particular time. (4) Aortic stenosis: PLAN: He appears to have mild aortic stenosis based on the cardiac catheterization pullback as well as the echocardiogram. He will be continue with current medical therapy. (5) Atrial fibrillation: PLAN: He does have chronic persistent atrial fibrillation. I would recommend maximizing his beta-chata, discontinuing the digoxin, continuing Eliquis and the amiodarone. He has seen the information systems security manager in the past and they have not recommended ablation. He will follow-up again as an outpatient. Thank you for allowing me to participate in the care of your patient. Please don't hesitate to call if any issues arise.
--- NOTE | 2024-05-08 09:08 | DCINST_ITS ---
Discharge Instructions Diet Discharge Diet: Low fat / Low cholesterol and 2000 mg Sodium Diet Activity Discharge Activity: Return to Normal Activity Weight Bearing Status: Weight bearing as tolerated Dressing / Incision Call your doctor if you observe: Fever of 101 or Higher, Coldness, Increased Pain, Numbness or Tingling, Change in Color, Inability to urinate, Inability to have a bowel movement, Shortness of breath, Dizziness, Fainting spells, Swelling in the ankles, Chest pain, Prolonged hiccupping, Increased palpitations (irregular heartbeat) and Calf discomfort Follow Up Care When: IN 2 WEEKS Test Results: Test results from this visit will be discussed in further detail at your follow- up appointment, if applicable. Discharge Plan Admission Admit Date/Time: 05/07/24 13:17 Primary Reason for Your Visit: Chest discomfort/NSVT. ACS ruled out Attending Provider: Satinder Edge Primary Care Provider: Ivan Pinzon Chi Consulting Providers: Julien Duncan; Delvis Villeda; Alina Wilson Discharge Orders/Prescriptions Prescriptions: New amiodarone 200 mg Tablet 200 mg PO DAILY 30 Days Qty: 30 2RF Continued lisinopril 2.5 mg tablet 2.5 mg PO DAILY polysaccharide iron complex [Ferrex 150] 150 mg iron capsule 150 mg PO DAILY melatonin 5 mg capsule 5 mg PO DAILY levothyroxine 125 mcg tablet 125 mcg PO DAILY bumetanide 2 mg tablet 2 mg PO DAILY Eliquis 5 mg tablet 5 mg PO BID metoprolol tartrate 25 mg tablet 25 mg PO BID insulin degludec [Tresiba FlexTouch U-200] 200 unit/mL (3 mL) insulin pen 44 unit subcut QHS atorvastatin 40 MG tablet 40 mg PO DAILY metformin 1,000 mg tablet 1,000 mg PO BID potassium chloride [Klor-Con M20] 20 mEq tablet,ER particles/crystals 20 meq PO BID mecobalamin (vitamin B12) 1,000 mcg tablet,chewable 1,000 mcg PO DAILY clopidogrel 75 mg Tablet 75 mg PO DAILY Qty: 30 11RF Discontinued digoxin 250 mcg (0.25 mg) tablet 250 mcg PO DAILY Qty: 90 3RF Referrals / Follow Up: Julien Duncan MD [Med Staff - Active Staff] - Within 1 Month Ivan Pinzon Chi, MD [Primary Care Provider] - Disposition Disposition (needs filled in before D/C Order can be placed): Home, Self Care
[2024-05-08 09:13] LABS: International Normalized Ratio 1.2; Prothrombin Time (Protime)PT. 15.6 SECONDS (11.7-14.9)
--- NOTE | 2024-05-08 09:45 | CASEMGMT ---
RN CM Face to Face with patient for initial transition planning/care coordination assessment. RN CM introduced self and role at [facility]. Patient lying in bed, alert and oriented. Patient willing to participate in assessment and is able to answer all questions appropriately. Care providers, pharmacy, and demographics verified. PCP: Jeromy Specialists: Marcial, real estate operations manager; Prah, labor relations representative; Preferred Pharmacy: [facility] Insurance: [facility] Prescription Benefit: yes Living Will/HPOA: yes, daughter Sondra Granados LNOK: daughter Living Arrangements: Patient lives alone in a single story home with 2 steps and railing to enter the home. Patient is independent at home. Transportation: self, daughter DME/HHC: Patient has raised toilet, cane, and grab bars at home. NO previous HHC or SNF. Patient wishes to discharge home, denies need for home health at this time. Patient states he has no further needs or concerns at this time. CM to follow for discharge planning needs that may arise. Disposition Plan: Patient to discharge home with family support and follow-up plans in place. Andree DAVID, RN, CM
--- NOTE | 2024-05-08 09:46 | DS.PCM_ITS ---
Providers Date of Admission: 05/07/24 Date of Discharge: 05/08/24 Primary Care Physician: Dr. Ivan Pinzon MD Consultations 05/07/24 15:23 Consult: Cardiology Routine Consulting Provider: Julien Duncan Reason for Consult: s/p dentures lab technician, wide complex tachycardia, CAD EMERGENT Consult: No MD Notified: Yes Date Notified: 05/07/24 Time Notified: 14:55 Method of Notification: ED Physician Initiated Reason For Visit: VTAC, CHEST PAIN, RECENT STENT Diagnosis Discharge Diagnosis (1) Ventricular tachycardia seen on school bus monitor: Status: Acute Code(s): I47.20 - Ventricular tachycardia, unspecified (2) Stented coronary artery: Status: Acute Code(s): Z95.5 - Presence of coronary angioplasty implant and graft (3) CAD (coronary artery disease): Status: Chronic Code(s): I25.10 - Atherosclerotic heart disease of [place] coronary artery without angina pectoris (4) Aortic stenosis: Status: Chronic Code(s): I35.0 - Nonrheumatic aortic (valve) stenosis (5) Atrial fibrillation: Status: Chronic Code(s): I48.91 - Unspecified atrial fibrillation Plan 78-year-old gentleman was admitted with substernal chest pain/discomfort with wide-complex tachycardia which was felt to be ventricular tachycardia. He was recently in the hospital and had cardiac cath which showed severe triple-vessel disease for which he had PCI/stenting of LAD #Chest pain and wide complex tachycardia in setting of LAD stent 04/28/24. Patient has history of chronic A-fib -Pt taken to dentures lab technician but no acute process noted. -Discussed with cardiology, it was recommended to give amnio bolus and start drip and DC digoxin -Continue statin -Continue beta-chata -Continue Eliquis and patient's other home medications -awake overnight monitor reviewed. It shows patient has A-fib with heart rate in 60s. Sometimes pause maximum 1.79 seconds. Digoxin discontinued. Discussed with Education Courses Sales Representative Dr. Duncan. Patient is being discharged on amiodarone 200 mg daily, prescription given. #Type 2 diabetes mellitus -Decrease long-acting insulin and adjust pending patient's diet -Glucose checks and sliding scale insulin Glucose is elevated. It was 272-198. Continue home medications. Follow with PCP #Hypothyroidism -Continue Synthroid #Hypertension -Continue lisinopril and beta-chata #DVT ppx: Eliquis Discharge medication reconciliation done. Discharge follow-up instructions completed. Discharge process discussed with the patient and all questions were answered to patient's satisfaction. Follow with PCP in 1 to 2 weeks Total time spent, exact 35 minutes on discharge meds reconciliation, examination, coordination of care with nurses and ancillary staff, review of imaging and blood test and discussion with the patient on follow-up instructions. Medications at Discharge Home Medications atorvastatin 40 mg tablet 40 mg PO DAILY cholesterol 10/22/19 lisinopril 2.5 mg tablet 2.5 mg PO DAILY blood pressure 07/22/22 melatonin 5 mg capsule 5 mg PO DAILY sleep 09/18/23 polysaccharide iron complex 150 mg iron capsule (Ferrex) 150 mg PO DAILY supplement 10/09/23 bumetanide 2 mg tablet 2 mg PO DAILY water pill 11/25/23 levothyroxine 125 mcg tablet 125 mcg PO DAILY thyroid 11/25/23 apixaban 5 mg tablet (Eliquis) 5 mg PO BID blood thinner 03/16/24 insulin degludec 200 unit/mL (3 mL) subcutaneous pen (Tresiba FlexTouch U-200 insulin) 44 unit subcut QHS diabetes 04/20/24 metoprolol tartrate 25 mg tablet 25 mg PO BID heart rate 04/20/24 clopidogrel 75 mg tablet 75 mg PO DAILY #30 tabs 04/28/24 mecobalamin (vitamin B12) 1,000 mcg chewable tablet 1,000 mcg PO DAILY 05/07/24 metformin 1,000 mg tablet 1,000 mg PO BID 05/07/24 potassium chloride 20 mEq tablet,extended release(part/cryst) (Klor-Con M) 20 meq PO BID 05/07/24 amiodarone 200 mg tablet 200 mg PO DAILY 30 days #30 tabs 05/08/24 Physical Exam Narrative Seen and examined. Does not have any acute symptoms. Heart rate is controlled in the 60s, A-fib. awake overnight monitor reviewed and shows sinus pause. Physical exam General: Alert, Oriented x3, Cooperative HEENT: Atraumatic, PERRLA, EOMI, Normocephalic Oral: No Gingival or Mucosal Lesions/ Ulcerations Neck: Supple, No JVD, Negative Carotid Bruits Chest wall/Lungs: Air entry diminished in bilateral lung bases. No crepitation/rhonchi Cardiovascular: Irregular rhythm normal S1, Normal S2, systolic murmur LLSB. Abdomen: Bowel Sounds Present, Soft, Non Tender, Non-Distended : No dysuria. No renal angle tenderness. No suprapubic tenderness. Extremities: Right wrist cath access site no hematoma or bruise. No pedal edema, Capillary Refill Less than 3 Seconds Skin: No rashes, No breakdown Musculoskeletal: No Tenderness to Palpation of Joints or Extremities Neurological: Cranial nerves II-XII grossly intact, DTR 2+/4. No acute focal neurological deficit. Psych/Mental Status: Normal Affect, Appropriate. Weight / BMI Weight Weight: 236 lb 1.841 oz Body Mass Index (BMI) 34.8 ABG / Lab / Microbiology Data 05/08/24 06:50 05/08/24 06:50 Laboratory: Laboratory Results - last 24 hr 05/07/24 12:16: WBC 7.2, RBC 4.62, Hgb 14.1, Hct 40.7, MCV 88.1, MCH 30.5, MCHC 34.6, RDW Std Deviation 46.5 H, RDW Coeff of [place] 14.8 H, Plt Count 159, MPV 10.9, Immature Gran % (Auto) 0.300, Neut % (Auto) 62.9, Lymph % (Auto) 22.9, [place] % (Auto) 9.9, Eos % (Auto) 3.0, Baso % (Auto) 1.0, Absolute Neuts (auto) 4.6, Absolute Lymphs (auto) 1.66, Nucleated RBC % 0, Sodium 139, Potassium 3.6, Chloride 106, Carbon Dioxide 22.0, Anion Gap 11, BUN 19 H, Creatinine 1.11, Estim Creat Clear Calc 68.50, Est GFR (MDRD) Af Amer 83, Est GFR (MDRD) Non-Af 68, BUN/Creatinine Ratio 17.1, Glucose 267 H, Calcium 9.6, Magnesium 1.7, Troponin I High Sens 62 05/07/24 17:06: Troponin I High Sens 5771 H* 05/07/24 21:13: POC Glucose 267 H 05/08/24 06:08: POC Glucose 198 H 05/08/24 06:50: WBC 6.2, RBC 3.99 L, Hgb 12.3 L, Hct 36.4 L, MCV 91.2, MCH 30.8, MCHC 33.8, RDW Std Deviation 49.9 H, RDW Coeff of [place] 14.9 H, Plt Count 124 L, MPV 11.2, Immature Gran % (Auto) 0.300, Neut % (Auto) 66.3, Lymph % (Auto) 20.1, [place] % (Auto) 9.3, Eos % (Auto) 3.4, Baso % (Auto) 0.6, Absolute Neuts (auto) 4.1, Absolute Lymphs (auto) 1.25, Nucleated RBC % 0, PT 15.6 H, INR 1.2, Sodium 138, Potassium 3.9, Chloride 107, Carbon Dioxide 26.0, Anion Gap 5, BUN 15, Creatinine 0.94, Estim Creat Clear Calc 80.62, Est GFR (MDRD) Af Amer 100, Est GFR (MDRD) Non-Af 82, BUN/Creatinine Ratio 15.9, Glucose 212 H, Calcium 8.7, P hosphorus 2.4 L, Magnesium 2.4, Total Bilirubin 1.00, AST 35, ALT 20, Alkaline Phosphatase 101, Total Protein 6.5, Albumin 3.2, Globulin 3.3, Albumin/Globulin Ratio 1.0, Digoxin 1.05 Radiography Diagnostic Testing: Radiology Impression Chest X-Ray 05/07/24 12:42 IMPRESSION: No radiographic evidence of acute cardiopulmonary disease. Electronically Signed: Rashad Oro MD at 13:22 EDT , D/C Instructions Discharge Diet: Low fat / Low cholesterol and 2000 mg Sodium Diet Weight Bearing Status: Weight bearing as tolerated Call your doctor if you observe: Fever of 101 or Higher, Coldness, Increased Pain, Numbness or Tingling, Change in Color, Inability to urinate, Inability to have a bowel movement, Shortness of breath, Dizziness, Fainting spells, Swelling in the ankles, Chest pain, Prolonged hiccupping, Increased palpitations (irregular heartbeat) and Calf discomfort When: IN 2 WEEKS Meaningful Use Info Meaningful Use Meaningful Use Diagnoses (Choose all that apply): None applicable Ischemic Stroke Statin Dosing Therapy Reference: STATIN DOSE THERAPY REFERENCE: * Patients > 75 years receive moderate or high dose statin therapy. * Patients 75 years or YOUNGER should receive HIGH intensity statin dose unless contraindicated. You will be required to document reason for non-treatment if statin daily dose does not meet guidelines. HIGH DOSE STATIN THERAPY DAILY Atorvastatin > than or = to 40 mg Rosuvastatin > than or = to 20 mg Amlodipine + Atorvastatin > than or = to 2.5/40 mg Ezetimibe + Simvastatin 10/80 mg Simvastatin 80mg Discharge Plan Admission Admit Date/Time: 05/07/24 13:17 Primary Reason for Your Visit: Chest discomfort/NSVT. ACS ruled out Attending Provider: Satinder Edge Primary Care Provider: Ivan Pinzon Chi Consulting Providers: Julien Duncan; Delvis Villeda; Alina Wilson Discharge Orders/Prescriptions Prescriptions: New amiodarone 200 mg Tablet 200 mg PO DAILY 30 Days Qty: 30 2RF Continued lisinopril 2.5 mg tablet 2.5 mg PO DAILY polysaccharide iron complex [Ferrex 150] 150 mg iron capsule 150 mg PO DAILY melatonin 5 mg capsule 5 mg PO DAILY levothyroxine 125 mcg tablet 125 mcg PO DAILY bumetanide 2 mg tablet 2 mg PO DAILY Eliquis 5 mg tablet 5 mg PO BID metoprolol tartrate 25 mg tablet 25 mg PO BID insulin degludec [Tresiba FlexTouch U-200] 200 unit/mL (3 mL) insulin pen 44 unit subcut QHS atorvastatin 40 MG tablet 40 mg PO DAILY metformin 1,000 mg tablet 1,000 mg PO BID potassium chloride [Klor-Con M20] 20 mEq tablet,ER particles/crystals 20 meq PO BID mecobalamin (vitamin B12) 1,000 mcg tablet,chewable 1,000 mcg PO DAILY clopidogrel 75 mg Tablet 75 mg PO DAILY Qty: 30 11RF Discontinued digoxin 250 mcg (0.25 mg) tablet 250 mcg PO DAILY Qty: 90 3RF Referrals / Follow Up: Julien Duncan MD [Med Staff - Active Staff] - Within 1 Month Ivan Pinzon Chi, MD [Primary Care Provider] - Disposition Disposition (needs filled in before D/C Order can be placed): Home, Self Care Charges/Coding Visit Charges Inpatient E&M: 38239 Disch Hosp >30min
[2024-05-08] MEDS: Lisinopril 2.5 MG Tablet PO (10:28)
[2024-05-08] MEDS: APIXABAN 5 MG TABLET PO (10:28)
[2024-05-08] MEDS: Clopidogrel Bisulfate 75 MG Tablet PO (10:28)
[2024-05-08] MEDS: Metoprolol Tartrate 25 MG Tablet PO (10:28)
[2024-05-08] MEDS: Atorvastatin Calcium 40 MG Tablet PO (10:29)
[2024-05-08] MEDS: Amiodarone 200 MG Tablet PO (10:29)
== END 2024-05-08 12:07 | disposition home or self-care (01) | DRG 287 ==
LOC: ED 13:01 → PCU 15:11 → CLSP 17:16 → PCU 17:33
PROVIDERS: Internal Medicine Cardiovascular Disease; Admitting Provider Internal Medicine; Emergency Provider Emergency Medicine; PCP Family Medicine Geriatric Medicine; Visit Provider Internal Medicine
DX: I47.20 Ventricular tachycardia, unspecified (principal); I48.19 Other persistent atrial fibrillation; E11.65 Type 2 diabetes mellitus with hyperglycemia; E03.9 Hypothyroidism, unspecified; D50.9 Iron deficiency anemia, unspecified; E78.00 Pure hypercholesterolemia, unspecified; Z79.4 Long term (current) use of insulin; I10 Essential (primary) hypertension; I35.0 Nonrheumatic aortic (valve) stenosis; I25.10 Atherosclerotic heart disease of native coronary artery without angina pectoris; Z79.01 Long term (current) use of anticoagulants; Z79.84 Long term (current) use of oral hypoglycemic drugs; N40.0 Benign prostatic hyperplasia without lower urinary tract symptoms; Z95.5 Presence of coronary angioplasty implant and graft; Z79.02 Long term (current) use of antithrombotics/antiplatelets; Z79.899 Other long term (current) drug therapy; Z79.890 Hormone replacement therapy; Z87.891 Personal history of nicotine dependence
CPT/HCPCS: 36415; 71045; 80048; 80053; 80162; 82962; 83735; 84100; 84484; 85025; 85610; 93005; 93458; 94762; 97802; 99152; 99153; 99285; J7030; J7040; Q9967; A4216; C1769; C1894

== ENCOUNTER → 2024-05-17 | Outpatient (CLI) | payer MEDICARE, SELFPAY ==
--- NOTE | 2024-05-17 08:00 | CR.HP_ITS ---
CR - History & Physical General Arrival date:: 05/17/24 Arrival time:: 08:00 Date of Referral:: 05/10/24 Date of CR Evaluation:: 05/17/24 Referring Physician: Dr. Ceja Primary Diagnosis: PCi w/coronary stent History of Present Cardiac Event Onset Date PTCA or coronary stenting:: Yes Vessel: LAD 05/10/24 onset Medications Ambulatory Orders ?Medication ?Instructions ?Recorded atorvastatin 40 mg tablet 40 mg PO DAILY cholesterol 10/22/19 lisinopril 2.5 mg tablet 2.5 mg PO DAILY blood pressure 07/22/22 melatonin 5 mg capsule 5 mg PO DAILY sleep 09/18/23 polysaccharide iron complex 150 mg 150 mg PO DAILY supplement 10/09/23 iron capsule (Ferrex) bumetanide 2 mg tablet 2 mg PO DAILY water pill 11/25/23 levothyroxine 125 mcg tablet 125 mcg PO DAILY thyroid 11/25/23 apixaban 5 mg tablet (Eliquis) 5 mg PO BID blood thinner 03/16/24 insulin degludec 200 unit/mL (3 44 unit subcut [facility] diabetes 04/20/24 mL) subcutaneous pen (Tresiba FlexTouch U-200 insulin) metoprolol tartrate 25 mg tablet 25 mg PO BID heart rate 04/20/24 clopidogrel 75 mg tablet 75 mg PO DAILY #30 tabs 04/28/24 mecobalamin (vitamin B12) 1,000 1,000 mcg PO DAILY 05/07/24 mcg chewable tablet metformin 1,000 mg tablet 1,000 mg PO BID 05/07/24 potassium chloride 20 mEq 20 meq PO BID 05/07/24 tablet,extended release(part/cryst) (Klor-Con M) amiodarone 200 mg tablet 200 mg PO DAILY 30 days #30 tabs 05/08/24 Allergies Allergies alcohol Adverse Reaction (Verified 05/07/24 12:31) LIVER ISSUES Sulfa (Sulfonamide Antibiotics) Adverse Reaction (Verified 05/07/24 12:31) Other Sleep Disorder Evaluation Hx of Sleep Apnea: No Do you snore loudly (louder than talking or can be heard through closed doors)?: Yes (pt declines sleep study) Do you often feel tired/ fatigued/ sleepy during daytime?: No Has anyone observed you stop breathing during sleep?: No History of Hypertension (for STOP score): Yes STOP Results: Positive Advanced Directives Advanced Directives Power of Customer Relations Assistant: Yes Living Will: Yes Advance Directives Information Provided: No Advance Directives on File: No DNR Order?:: No Past Medical History Covid-19 Screening Physicial Symptoms Other Clinical Concerns Exposure Risk Pertinent Comorbidities 65 years or older:: Yes Has a serious heart condition:: Yes Diabetic:: Yes Past Medical Illness Medical History CAD (coronary artery disease) Atrial fibrillation Neck pain Segmental and somatic dysfunction of cervical region Degenerative disc disease, cervical HARRISON (dyspnea on exertion) Dyslipidemia Aortic stenosis Iron deficiency BPH (benign prostatic hyperplasia) History of carotid artery stenosis Type 2 diabetes mellitus Hypothyroidism Hyperlipidemia Hypertension Diabetes WILSON (iron deficiency anemia) History of kidney stones Atrial fibrillation History of migraine Seasonal allergies Past Surgical History Surgical History Hx of cardiac catheterization (~04/28/24) Stented coronary artery (~04/28/24) Hx of bilateral cataract extraction History of transurethral resection of prostate History of urethral stent History of hip replacement History of knee surgery History of bilateral total hip arthroplasty Surgical History: arthscropcy, hip Family History Summary Family History Mother Cancer Father Myocardial infarction Social History Smoking History Smoking Status: Never smoker Alcohol Use Alcohol Usage: No Substance Abuse Hx Substance Use: No Occupation Occupation (List type of work in comments):: Retired Hobbies, Recreation, Social Activities Hobbies: Woodworking Recreational Activities: I am able to engage in all my recreational activities Social Environment Status Marital Status: Current Living Arrangements Living Environment:: Alone Children How many children do you have?: 2 Do any of your children live nearby?: Yes Safety Do you feel safe in your surroundings?: Yes Assistance Do you need any assistance at home?: no Review of Systems Review of Systems Hints Review of Present Symptoms: Reports Dizziness/Lightheadedness, Fatigue, Heart Arrhythmia/Irregularities, Appetite - Normal and Sleep - Normal; Denies Shortness of Breath at Rest, Shortness of Breath with Exertion, PVD, Operative Discomfort, Angina, Wound Healing, Appetite - Special Diet or Sexual Changes Pain Is Patient Pain Free?: Yes Risk Factor Assessment Chief Complaint Chief Complaint: PCI with coronary stent Vital Signs Pulse Ox: 98 Blood Pressure: 132/59 Pulse Pulse Rate: 51 Hypertension How long have you been treated?: 18 years Blood Pressure Sitting - Right Arm: 132/59 Diabetes Diabetic History: Type II Nutrition Referral for Diabetes: No Obesity Height: 5 ft 9 in Weight:: 236 lb Weight in Pounds: 236.0 lbs Body Mass Index (BMI): 34.8 Nutritional Referral for Obesity: No Physical Inactivity Physical Inactivity: None (very little) Risk Stratification Risk Guidelines: Moderate Risk: Risk Factor for Smoking, Risk Factor for Sedentary Lifestyle and Risk Factor for Depression and Highest Risk: Risk Factor for Dyslipidemia, Risk Factor for Diabetes, Risk Factor for Obesity and Risk Factor for Hypertension For Smoking Smoking Risk Guidelines For Dyslipidemia Dyslipidemia Risk Guidelines For Diabetes Mellitus Diabetes Risk Guidelines For Obesity/Overweight Obesity/Overweight Risk Guidelines For Hypertension Hypertension Risk Guidelines For Sedentary Lifestyle Sedentary Lifestyle Risk Guidelines For Depression Depression Risk Guidelines Family History Family History Mother Cancer Father Myocardial infarction Motivation Motivation to Participate On a scale of 1 to 10, how prepared are you to commit to attending program?: 5 What do you see as barriers to successfully being able to complete the program?: nothing What do you see as the benefits of succesfully completing the program? In other words, what do you hope to get out of participating in the program?: weight loss, strength Are there issues you are dealing with that will interfere with completing the program?: no Do you have a spouse or signficant other, family or friends who will help support you to complete the program?: yes
[2024-05-17 08:09] VITALS: BP 132/59; PULSE 51; O2SAT 98
--- NOTE | 2024-05-17 08:09 | PCM.CR.ITP ---
Diagnosis General Information Admitting Diagnosis: PCI with coronary stent Personal Learning Style:: Audio/Visual Stage of change r/t lifestyle modifications:: Contemplation Gave educational material for:: Treating Heart Disease, How The Heart Works, What it means to have Heart Disease, How Coronary Artery Disease is Diagnosed, Heart Procedures, What Heart Medications Do, Risk Factors & Modifications, Living an Active Life, Nutrition, Emotions & Heart Disease, Stress Management & Relaxation and Sleep Disorders & Heart Disease Education/Goals Cardiac Rehabilitation Goals Personal Goals: Initial Assessment: Improve energy level, Improve muscle strength and endurance, Improve diet and eating habits (eat healthier) and Control risk factors (learn risk factor modification) Scale for measuring improvement of personal goals Diagnosis & Disease Process Outcomes/Goals: Pt IDs own risk factors & lifestyle modifications by Session 10, Verbalizes symptoms of angina & response by session 3., Pt independently manages and Other Additional Outcomes/Goals: Plan/Interventions: Assist Pt to ID & engage in lifestyle modification to reduce CVD risk, Instruct on individual risk factors, Review symptoms of angina & emergency actions, Review secondary diagnosis & identify educational needs. and Other see comment 30 day Reassessments:: Not Met 30 day Reassessments:: Not Met 30 day Reassessments:: Not Met 30 day Reassessments:: Not Met Final Reassessments:: Not Met Safety Referral to Physical Therapy: No Referral to [facility] Case Management: No Fall Risk Assessed:: Yes Assistive Devices:: None Exercise - Initial Assessment Visit Date of Eval: 05/17/24 (initial eval ) Mets: Pre-: >3 METS for 30 minutes by discharge Physician Prescribed Exercise Modalities: Treadmill, Rower, Schwinn Airdyne AD-7, SciFit Stepper, HelloFaxFit Pro-II Ergometer and HelloFaxFit Lateral Destination Sign Repairer Frequency: 2x/week for 18 weeks [36 sessions] and 3x/week for 12 weeks [36 sessions] Intensity: 60-80% of age predicted maximum heart rate reserve Duration: 30 - 45 minutes Current METSs:: 3 Target Heart Rate:: 94-122 Resting Blood Pressure: 132/59 EKG Type: A-fib with PVC Outcomes & Goals Goals:: Verbalizes understanding of THR, RPE & goal METS by session 6, Documents in home exercise log/reports 30 min aerobic 5 day/wk by DC, Demonstrates accurate pulse taking by DC and Other additional outcome/goals: see below Intervention & Plan Exercise Program Goals: Instruct on personal THR & RPE, Instruct on MET level & personal MET goal, Show patient to take own pulse /validate performance until accurate, Instruct on home exercise and Other additional plan/int Physical Activity Home Exercise Physical Activity - Home Exercise: Safe Exercise, Warm-up, Self-monitoring, Cool-Down, Home Exercise > 30 min Daily and Sitting Time <3 hours/daily Outcomes & Goals Outcomes/Goals: Demonstrates correct Warm-up/exercise Cool-Down (S3) if = 2.5 METs, Verbalizes symptoms of exercise intolerance by Session 3 (S3), Demonstrate safe equipment use (S3) & follows exercise prescrition (6) and Other: See below Intervention & Plan Plan/Intervention: Instruct warm-up & cool-down if exercising at > 2 METs, Instruct on symptoms of exercise intolerance & actions to take, Instruct & monitor on saf, Assess intial functional capacity & safety risk and Other See below Nutrition - Initial Assessment Program Goals Nutrition Program Goals Patient has diagnosis of Hyperlipidemia (ICD E78)?: Yes Visit Date of Eval: 05/17/24 (initial eval ) Cholesterol/Lipids (Other Core Measures) Determine presence & major risk factors that modify LDL goal: Hypertension or hypertensive medication, Low HDL cholesterol <40 mg/dL*, Family history of premature CHD in Male < 55 years: female <65 yearsFa and Age men > 45 years; women >/= 55 years Outcomes/Goals: Pt IDs own risk factors & lifestyle modifications by Session 10, Verbalizes symptoms of angina & response by session 3., Pt independently manages and Other Additional Outcomes/Goals: Intervention/Plan: Advocate for lipid panel cholesterol medication if applicable, Instruct on personal lipid levels & lipid goals/NCEP guidelines, Instruct on cholesterol and Other additional plan/int Referral to dietitian:: No Diabetes (Other Core Measures) Diabetes Type: Diagnosis Type II ICD-10 E11 Insulin dependent injection/pump?: Yes Non-Insulin Dependent?: Yes Do you monitor your blood sugar at home?: Yes Referral to Diabetic Clinic:: No Outcomes/Goals:: Able to state symptoms of, Able to state, Able to state and Other additional Intervention/Plan:: Instruct on, Refer to, Instruct on and Other Weight Mgt (Other Care) Height: 5 ft 9 in Weight:: 236 lb BMI: 34.8 Diagnosis Overweight/Obesity BMI> 30% ICD-10 E66: Yes Diagnosis High BMI/Morbid Obesity BMI> 35% ICD-10 Z68: No Outcomes/Goals: Pt sets, maintains & shows weight loss goal & trend during rehab and Other additional outcomes/goals Intervention/Plan: Instruct on ideal BMI & set weight loss goal w/patient, Assist pt to ID & incorporate diet changes for weight loss by S9, Refer to Structured Weight Loss program as appropriate, Encourage goal of using 250-300dcal per session for weight loss and Other additional plan/interventions Healthy Eating Habits Will attend diet classes:: Yes Outcomes/Goals:: Consume diet rich in vegs,fruits,whole grain/high fiber,fish,lean meat, Limit sat/trans fats,cholesterol & added salts & sugars and Other additional outcome/goals: Intervention/Plan:: Assess current eating habits and Other Additional plan/interventions Education Gave educational materials for:: Signs & symptoms of hypoglycemia, Signs & symptoms of hyperglycemia, Relate diabetes to coronary artery disease and Healthy eating Core - Initial Assessment Visit Date of Eval: 05/17/24 (initial eval ) Medication Compliance Preventative Medication(s):: LESLIE inhibitor, Clopidogrel/P2Y12 inhibit, Statin/lipid, Beta chata and Eliquis H/O mental health issues: depression, anxiety, or addiction?: No Doesn?t believe in the benefits of treatment?: No Believes medications are unnecessary or harmful?: No Has a concern about medication side effects?: No Expresses concern over the cost of medications?: No Outcomes/Goals: Verbalizes medications,desired effect & common side effects @ DC, Pt self-reports following medication regimen, Keeps card in wallet w/medications listed by DC and Other additional outcome/goals: Interventions/plans: Instruct on medication effects & side effects, Review medication list w/patient every two weeks, Instruct importance of taking meds as ordered & assist problem solving and Other additional Tobacco Use Tobacco Use: Non-smoker Hypertension Hypertension Diagnosis:: Hypertension ICD-10 I10 Resting Blood Pressure:: 132/59 [place] [employer] Hypertension Guidelines Outcomes/Goals: Able to verbalize/achieve optimal blood pressure <130/80, Incorporates diet changes & exercise for blood pressure control by DC and Other additional outcomes/goals Interventions/plan: Instruct on optimal blood pressure, hypertension & medications, Instruct on effects of sodium, alcohol, stress, exercise &hypertension and Other additional plan/interventions Tobacco Cessation Referral Smoking Cessation Referral:: No Individual Education/Counseling:: No Education Schedule Given:: Yes Psychosocial - Initial Assess VIsit Date of Eval: 05/17/24 (initial eval ) History of previous Mental disease:: No Target Goals Target Goals Outcomes/Goals: See list Psychosocial Outcomes/Goals:: ID's personal stressors & 2 strategies to manage stress by discharge and Other Additional outcome/goals: Intervention/Plan: See List Interventions/Plan:: Assess stressors,coping strategies & signs of derpression on admission, Instruct/assist pt to develop coping & personal stress Mgt strategies, Refer to Behavioral Health if appropriate, Refer to Physician if appropriate, Instruct patient to recognize signs & symptoms of depression, Instruct patient to recog and Other additional plan/intervention Patient Health Questionnaire PHQ-9 Screening Initial Assessment: 1. Little interest or pleasure in doing things: Not at all 2. Feeling down, depressed, or hopeless: Not at all 3. Trouble falling or staying asleep, or sleeping too much: Not at all 4. Feeling tired or having little energy: More than half the days 5. Poor appetite or overeating: Not at all 6. Feeling bad about yourself -- or that you are a failure or have let yourself or your family down: Not at all 7. Trouble concentrating on things, such as reading the newspaper or watching television: More than half the days 8. Moving or speaking so slowly that other people could have noticed. Or the opposite - being so fidgety or restless that you have been moving around a lot more than usual: Not at all 9. Thoughts that you would be better off , or of hurting yourself in some way: Not at all How difficult have these problems made it for you to do your work, take care of things at home, or get along with other people?: Somewhat difficult Total Score: 4 ANIA-Q SV Test Statements CAD is a disease of the arteries in the heart: False Examples of risk factors for heart disease: False Angina is chest pain or discomfort: I Don't Know The benefits of resistance training include: True Eating more meat and dairy products: False Anti-platelet medications such as aspirin are important: True The only effective way to manage stress: False An exercise warm-up slowly increases heart rate: True Prepared, processed foods usually have high sodium: True Depression is common after a heart attack: False The statin medications lower cholesterol: I Don't Know To control blood pressure, lower the amount of sodium: True If someone gets chest discomfort during walking: False Transfats are partially hydrogenated vegetable oils: False Sleep apnea that is not treated increases the risk: False To control cholesterol, one should become a vegetarian: False Someone knows if he/she is exercising at the right level: False Diabetes cannot be prevented with exercise & health eating: False Stress is a large risk for heart attack: True A diet that can help lower blood pressure is rich in: True Total Score Total Correct Responses: 14 Self-Efficacy 6-Item Scale Initial Assessment: We would like to know how confident you are in doing certain activities. Please select your confidence level for: Fatigue Select Number: 3 Physical Discomfort or Pain Select Number: 3 Emotional Distress Select Number: 7 Other Symptoms or Health Problems Select Number: 3 Different Tasks and Activities Select Number: 6 Medication Select Number: 4 Total Score:: 4 Nutrition Survey Nutrition Survey Instructions Scoring Instructions Nutrition Survey Initial: Have you lost >10 lbs over the past 2 months without trying?: No Are you following a special diet at home for diabetes, low fat, or low salt?: No Are you interested in meeting with a dietitian for help understanding your diet?: No Do you eat less than 3 meals a day?: Yes Do you eat fatty meats (galeas, sausage, ribs, etc), fried foods, desserts, large amounts of salad dressings, margarine, butter, or cheese most days?: Yes Do you have food allergies? [Enter types in comment field]: No Do you eat in restaurants more than 3 times a week?: Yes Do you season food with salt, seasoning salt, or garlic salt?: No Do you used canned, boxed, frozen meals, or soups, seasoning packets?: No Total Score:: 3 Exercise - 30-day Assessment Physician Prescribed Exercise Modalities: Treadmill, Rower, Schwinn Airdyne AD-7, SciFit Stepper, SciFit Pro-II Ergometer and SciFit Lateral Destination Sign Repairer Exercise - 60-day Assessment Physician Prescribed Exercise Modalities: Treadmill, Rower, Schwinn Airdyne AD-7, SciFit Stepper, SciFit Pro-II Ergometer and SciFit Lateral [place] Exercise - 90-day Assessment Physician Prescribed Exercise Modalities: Treadmill, Rower, Schwinn Airdyne AD-7, SciFit Stepper, SciFit Pro-II Ergometer and SciFit Lateral Destination Sign Repairer Exercise - Final/Discharge Physician Prescribed Exercise Modalities: Treadmill, ShaylaerRadu AD-7, SciFit Stepper, SciFit Pro-II Ergometer and SciFit Lateral [place] Frequency: 2x/week for 18 weeks [36 sessions] and 3x/week for 12 weeks [36 sessions] Intensity: 60-80% of age predicted maximum heart rate reserve Current METSs:: 3 Target Heart Rate:: 94-122 Nutrition - 30-Day Assessment Weight Mgt (Other Care) Height: 5 ft 9 in Weight:: 236 lb BMI: 34.8 Nutrition - 60-Day Assessment Weight Mgt (Other Care) Height: 5 ft 9 in Weight:: 236 lb BMI: 34.8 Core - Final Assessment Hypertension Resting Blood Pressure:: 132/59 [place] [employer] Hypertension Guidelines Core - 60-Day Assessment Hypertension Resting Blood Pressure:: 132/59 [place] [employer] Hypertension Guidelines Psychosocial - 30-Day Assess Target Goals Target Goals Psychosocial - 60-Day Assess Target Goals Target Goals Psychosocial - 90-Day Assess Target Goals Target Goals Psychosocial - Final Assessmen Target Goals Target Goals Nutrition - 90-Day Assessment Weight Mgt (Other Care) Height: 5 ft 9 in Weight:: 236 lb BMI: 34.8 Nutrition - Final Assessment Program Goals Patient has diagnosis of Hyperlipidemia (ICD E78)?: Yes Weight Mgt (Other Care) Height: 5 ft 9 in Weight:: 236 lb BMI: 34.8
[2024-05-17 08:17] VITALS: BP 132/59
[2024-05-17 08:39] VITALS: BMI 34.8
[2024-05-17 08:58] VITALS: BMI 34.8
== END | disposition home or self-care (01) ==
LOC: CR 07:56
PROVIDERS: PCP Family Medicine Geriatric Medicine; Referring Provider Internal Medicine Cardiovascular Disease; Visit Provider Internal Medicine Cardiovascular Disease
DX: Z95.5 Presence of coronary angioplasty implant and graft (principal)

== ENCOUNTER → 2024-05-18 | Outpatient (CLI) | payer MEDICARE, SELFPAY ==
[2024-05-17 08:58] VITALS: BMI 34.8
[2024-05-18 13:19] LABS: Absolute Lymphocyte Count 1.18 X10^3/uL (0.83-4.51); Basophil# 0.04 X10^3/uL; Basophil% 0.7 % (0-1); Eosinophil# 0.21 X10^3/uL; Eosinophils% 3.5 % (0-5); Hematocrit 36.3 % (40-54); Hemoglobin 12.3 g/dL (13.0-16.5); Lymphocyte # 1.18 X10^3/ul (0.83-4.51); Lymphocyte % 19.5 % (19-41); Mean Corp Hgb Conc 33.9 g/dL (32-36); Mean Corpuscular Hgb 30.8 pg (27.0-32.0); Mean Corpuscular Volume 90.8 fL (80-94); Monocyte# 0.62 X10^3/uL; Monocyte% 10.3 % (0-10); NRBC Flagged by Analyzer 0 % (0-5); Neutrophil # 3.97 X10^3/uL (2.7-7.7); Neutrophil % 65.7 % (47-70); Platelet Count 144 K/mm3 (150-450); RBC Distribution Width CV 15.1 % (11.6-14.6); RBC Distribution Width SD 49.5 fl (35.1-43.9)
[2024-05-18 13:57] LABS: Vitamin D,25 Hydroxy 36.2 ng/mL
[2024-05-18 14:03] LABS: AST(SGOT) 13 U/L (15-37); Alanine Aminotransfer ALT/SGPT 19 U/L (16-61); Albumin, Serum 3.5 g/dL (3.2-5.0); Alkaline Phosphatase 100 U/L (45-117); Anion Gap 6 (5-15); BUN 25 mg/dL (7-18); BUN/Creat Ratio 22.1 RATIO (10-20); Calcium,Total 9.3 mg/dL (8.5-10.1); Chloride 104 mmol/L (98-107); Creatinine, Serum 1.13 mg/dL (0.70-1.30); EST Glomerular Filtration Rate 67 mL/min (>60); Est Glom Filt Rate - Afr Amer 81 mL/min (>60); Globulin 3.4 g/dL (2.2-4.2); Glucose 335 mg/dL (74-106); Potassium 4.1 mmol/L (3.5-5.1); Protein, Total 6.9 g/dL (6.4-8.2); Sodium Level 137 mmol/L (136-145)
== END | disposition home or self-care (01) ==
LOC: LAB 11:54
PROVIDERS: PCP Family Medicine Geriatric Medicine; Referring Provider Family Medicine Geriatric Medicine; Visit Provider Family Medicine Geriatric Medicine
DX: E11.65 Type 2 diabetes mellitus with hyperglycemia (principal); R53.83 Other fatigue; E55.9 Vitamin D deficiency, unspecified
CPT/HCPCS: 36415; 80053; 82306; 84443; 85025

== ENCOUNTER → 2024-05-25 | Outpatient (CLI) | payer MEDICARE, SELFPAY ==
[2024-05-17 08:58] VITALS: BMI 34.8
--- NOTE | 2024-05-25 14:39 | ECHOD_ITS ---
Reason For Study: DYSPNEA Procedure This was a 2D Doppler, Color Flow transthoracic echocardiogram. Exam performed in department. Left Ventricle Normal size and thickness. The left ventricular ejection fraction is 55 %. Unable to assess diastolic dysfunction due to arrhythmia. Right Ventricle Normal right ventricle. Atria The left atrium is severely enlarged. The right atrium is moderately enlarged. Mitral Valve Mild mitral annular calcification. Mild (1+) mitral valve insufficiency. Tricuspid Valve Normal tricuspid valve. Aortic Valve Moderate aortic valve stenosis with mean peak gradient of 23.7 mmHg. Mild aortic valve regurgitation. Pulmonic Valve The pulmonic valve is not well visualized. Great Vessels Normal sized aortic root. Pericardium/Pleural No pericardial effusion. MMode/2D Measurements & Calculations LVIDd: 5.0 cm IVSd: 1.0 cm LVOT diam: 2.3 cm LVIDs: 3.6 cm LVPWd: 1.1 cm LVOT area: 4.0 cm2 RVDd: 4.1 cm FS: 27.5 % LAV(MOD-bp): 134.8 ml LVAd ap4: 30.5 cm2 SV(MOD-sp4): 50.2 ml LAV(MOD-bp) Indexed: 60.7 ml/m2 LVLd ap4: 7.8 cm LAV(MOD-sp2): 130.1 ml EDV(MOD-sp4): 95.3 ml LAV(MOD-sp4): 129.7 ml EDV(sp4-el): 100.6 ml LVAs ap4: 19.0 cm2 LVLs ap4: 7.4 cm ESV(MOD-sp4): 45.1 ml ESV(sp4-el): 41.4 ml EF(MOD-sp4): 52.7 % EF(sp4-el): 58.8 % SV(sp4-el): 59.2 ml LA A4 area: 33.7 cm2 LA dimension(2D): 5.1 cm RA A4 area: 19.9 cm2 TAPSE: 1.8 cm Doppler Measurements & Calculations MV E max oswaldo: 114.1 cm/sec Lat Peak E' Oswaldo: 12.8 cm/sec Med Peak E' Oswaldo: 8.9 cm/sec E/E' lat: 8.9 E/E' med: 12.9 Ao V2 max: 327.6 cm/sec AI max oswaldo: 375.1 cm/sec LV V1 max: 84.6 cm/sec Ao max P.0 mmHg AI max P.6 mmHg LV V1 max P.9 mmHg Ao V2 mean: 229.5 cm/sec LV V1 mean P.5 mmHg Ao mean P.7 mmHg AI dec slope: 250.1 cm/sec2 LV V1 mean: 59.1 cm/sec Ao V2 VTI: 70.9 cm AI P1/2t: 439.3 msec LV V1 VTI: 20.5 cm AV (velocity ratio): 0.29 MARKEL(I,D): 1.2 cm2 MARKEL(V,D): 1.0 cm2 SV(LVOT): 82.4 ml PA V2 max: 94.0 cm/sec PA V2 mean: 66.3 cm/sec ECHO/Echo Complete Interpretation Summary The left ventricular ejection fraction is 55 %. The left atrium is severely enlarged. The right atrium is moderately enlarged. Mild (1+) mitral valve insufficiency. Mild mitral annular calcification. Moderate aortic valve stenosis with mean peak gradient of 23.7 mmHg. Mild aorti c valve regurgitation. Ordering Physician: Latasha Ceja Referring Physician: Ivan Pinzon Chi Performed By: Hilaria Nassar, RDCS, RVT
== END | disposition home or self-care (01) ==
LOC: CVS 14:38
PROVIDERS: PCP Family Medicine Geriatric Medicine; Referring Provider Internal Medicine Cardiovascular Disease; Visit Provider Internal Medicine Cardiovascular Disease
DX: R06.09 Other forms of dyspnea (principal); I48.91 Unspecified atrial fibrillation; E11.9 Type 2 diabetes mellitus without complications; I25.10 Atherosclerotic heart disease of native coronary artery without angina pectoris; I10 Essential (primary) hypertension
CPT/HCPCS: 93306

== ENCOUNTER 2024-06-02 14:15 | Outpatient (RCR) | payer MEDICARE, SELFPAY ==
[2024-05-17 08:58] VITALS: BMI 34.8
== END 2024-06-02 23:59 ==
LOC: CR 14:15
PROVIDERS: PCP Family Medicine Geriatric Medicine; Referring Provider Internal Medicine Cardiovascular Disease; Visit Provider Internal Medicine Cardiovascular Disease
DX: R00.0 Tachycardia, unspecified (principal); R07.9 Chest pain, unspecified; Z95.5 Presence of coronary angioplasty implant and graft; I25.10 Atherosclerotic heart disease of native coronary artery without angina pectoris
CPT/HCPCS: 93798

== ENCOUNTER → 2024-06-22 | Outpatient (CLI) | payer MEDICARE, SELFPAY ==
[2024-05-17 08:58] VITALS: BMI 34.8
[2024-06-16 08:51] VITALS: BMI 34.9
== END | disposition home or self-care (01) ==
LOC: POLAB3 12:49
PROVIDERS: PCP Family Medicine Geriatric Medicine; Visit Provider Family Medicine Geriatric Medicine
DX: E03.9 Hypothyroidism, unspecified (principal)
CPT/HCPCS: 36415; 84443

== ENCOUNTER 2024-07-02 14:15 | Outpatient (RCR) | payer MEDICARE, SELFPAY ==
[2024-05-17 08:58] VITALS: BMI 34.8
--- NOTE | 2024-06-16 08:31 | CR.ITP_ITS ---
Exercise - Initial Assessment Visit Session #:: 12 Physician Prescribed Exercise Modalities: Treadmill, SciFit Stepper and SciFit Pro-II Ergometer Nutrition - Initial Assessment Weight Mgt (Other Care) Height: 5 ft 9 in Weight:: 236 lb 8 oz BMI: 34.9 Psychosocial - Initial Assess Target Goals Target Goals Patient Health Questionnaire PHQ-9 Screening 30-Day Re-eval Assessment: 1. Little interest or pleasure in doing things: Not at all 2. Feeling down, depressed, or hopeless: Not at all 3. Trouble falling or staying asleep, or sleeping too much: Not at all 4. Feeling tired or having little energy: More than half the days 5. Poor appetite or overeating: Not at all 6. Feeling bad about yourself -- or that you are a failure or have let yourself or your family down: Not at all 7. Trouble concentrating on things, such as reading the newspaper or watching television: More than half the days 8. Moving or speaking so slowly that other people could have noticed. Or the opposite - being so fidgety or restless that you have been moving around a lot more than usual: Not at all 9. Thoughts that you would be better off , or of hurting yourself in some way: Not at all How difficult have these problems made it for you to do your work, take care of things at home, or get along with other people?: Somewhat difficult Total Score: 4 Self-Efficacy 6-Item Scale 30-Day Re-eval Assessment: We would like to know how confident you are in doing certain activities. Please select your confidence level for: Fatigue Select Number: 3 Physical Discomfort or Pain Select Number: 3 Emotional Distress Select Number: 7 Other Symptoms or Health Problems Select Number: 3 Different Tasks and Activities Select Number: 6 Medication Select Number: 4 Total Score:: 4 Nutrition Survey Nutrition Survey Instructions Scoring Instructions Exercise - 30-day Assessment Visit Date of Eval: 06/16/24 Session #:: 12 Physician Prescribed Exercise Modalities: Treadmill, SciFit Stepper and SciFit Pro-II Ergometer Frequency: 3x/week for 12 weeks [36 sessions] Intensity: 60-80% of age predicted maximum heart rate reserve Duration: 30 - 45 minutes Current METSs:: 3 Target Heart Rate:: 94-122 Current RPE:: 11-12 Maximum Excercise HR:: 137 Resting Blood Pressure: 120/50 Maximum Exercise Blood Pressure: 140/52 EKG Type: AFIB with rare to occ PVC. rare ventricular couplet Outcomes & Goals Goals:: Verbalizes understanding of THR, RPE & goal METS by session 6, Documents in home exercise log/reports 30 min aerobic 5 day/wk by DC, Demonstrates accurate pulse taking by DC and Other additional outcome/goals: see below Intervention & Plan Exercise Program Goals: Instruct on personal THR & RPE, Instruct on MET level & personal MET goal, Show patient to take own pulse /validate performance until accurate, Instruct on home exercise and Other additional plan/int 30-day Reassessments 30 day Reassessments:: Progressing Reassessment Notes & Comments:: RPE explained Physical Activity Home Exercise Physical Activity - Home Exercise: Safe Exercise, Warm-up, Self-monitoring, Cool-Down, Home Exercise > 30 min Daily and Sitting Time <3 hours/daily Outcomes & Goals Outcomes/Goals: Demonstrates correct Warm-up/exercise Cool-Down (S3) if = 2.5 METs, Verbalizes symptoms of exercise intolerance by Session 3 (S3), Demonstrate safe equipment use (S3) & follows exercise prescrition (6) and Other: See below Intervention & Plan Plan/Intervention: Instruct warm-up & cool-down if exercising at > 2 METs, Instruct on symptoms of exercise intolerance & actions to take, Instruct & monitor on saf, Assess intial functional capacity & safety risk and Other See below 30-day Reassessments 30 day Reassessments:: Progressing Reassessment Notes & Comments:: proper warm up encouraged Exercise - 60-day Assessment Physician Prescribed Exercise Modalities: Treadmill, SciFit Stepper and SciFit Pro-II Ergometer Exercise - 90-day Assessment Physician Prescribed Exercise Modalities: Treadmill, SciFit Stepper and SciFit Pro-II Ergometer Exercise - Final/Discharge Physician Prescribed Exercise Modalities: Treadmill, SciFit Stepper and SciFit Pro-II Ergometer Nutrition - 30-Day Assessment Program Goals Nutrition Program Goals Patient has diagnosis of Hyperlipidemia (ICD E78)?: Yes Visit Date of Eval: 06/16/24 Session #:: 12 Cholesterol/Lipids (Other Core Measures) Determine presence & major risk factors that modify LDL goal: Hypertension or hypertensive medication, Low HDL cholesterol <40 mg/dL*, Family history of premature CHD in Male < 55 years: female <65 yearsFa and Age men > 45 years; women >/= 55 years Outcomes/Goals: Pt IDs own risk factors & lifestyle modifications by Session 10, Verbalizes symptoms of angina & response by session 3., Pt independently manages and Other Additional Outcomes/Goals: Intervention/Plan: Advocate for lipid panel cholesterol medication if applicable, Instruct on personal lipid levels & lipid goals/NCEP guidelines, Instruct on cholesterol and Other additional plan/int Referral to dietitian:: No 30-day Reassessments:: Progressing Reassessment Notes & Comments:: patient to attend nutrition class Diabetes (Other Core Measures) Diabetes Type: Diagnosis Type II ICD-10 E11 Fasting blood glucose:: 181 Insulin dependent injection/pump?: Yes Non-Insulin Dependent?: Yes Do you monitor your blood sugar at home?: Yes Referral to Diabetic Clinic:: No Outcomes/Goals:: Able to state symptoms of, Able to state, Able to state and Other additional Intervention/Plan:: Instruct on, Refer to, Instruct on and Other 30-day Reassessments:: Progressing Reassessment Notes & Comments:: patient to attend nutrition class Weight Mgt (Other Care) Height: 5 ft 9 in Weight:: 236 lb 8 oz BMI: 34.9 Diagnosis Overweight/Obesity BMI> 30% ICD-10 E66: Yes Diagnosis High BMI/Morbid Obesity BMI> 35% ICD-10 Z68: No Outcomes/Goals: Pt sets, maintains & shows weight loss goal & trend during rehab and Other additional outcomes/goals Intervention/Plan: Instruct on ideal BMI & set weight loss goal w/patient, Assist pt to ID & incorporate diet changes for weight loss by S9, Refer to Structured Weight Loss program as appropriate, Encourage goal of using 250- 300dcal per session for weight loss and Other additional plan/interventions 30 day Reassessments:: Progressing Reassessment Notes & Comments:: patient to attend nutrition class Healthy Eating Habits Will attend diet classes:: Yes Outcomes/Goals:: Consume diet rich in vegs,fruits,whole grain/high fiber,fish,lean meat, Limit sat/trans fats,cholesterol & added salts & sugars and Other additional outcome/goals: Intervention/Plan:: Assess current eating habits and Other Additional plan/interventions 30-day Reassessments:: Progressing Reassessment Notes & Comments:: patient to attend nutrition class Education Gave educational materials for:: Signs & symptoms of hypoglycemia, Signs & symptoms of hyperglycemia, Relate diabetes to coronary artery disease and Healthy eating Nutrition - 60-Day Assessment Weight Mgt (Other Care) Height: 5 ft 9 in Weight:: 236 lb 8 oz BMI: 34.9 Core - 30-Day Assessment Visit Date of Eval: 06/16/24 Session #:: 12 Medication Compliance Preventative Medication(s):: LESLIE inhibitor, Clopidogrel/P2Y12 inhibit, Statin/lipid, Beta chata and Eliquis H/O mental health issues: depression, anxiety, or addiction?: No Doesn?t believe in the benefits of treatment?: No Believes medications are unnecessary or harmful?: No Has a concern about medication side effects?: No Expresses concern over the cost of medications?: No Outcomes/Goals: Verbalizes medications,desired effect & common side effects @ DC, Pt self-reports following medication regimen, Keeps card in wallet w/medications listed by DC and Other additional outcome/goals: Interventions/plans: Instruct on medication effects & side effects, Review medication list w/patient every two weeks, Instruct importance of taking meds as ordered & assist problem solving and Other additional 30-day Reassessments:: Progressing Reassessment Notes & Comments:: pt encouraged to take meds as instructed, no med changes at this time Tobacco Use Tobacco Use: Non-smoker Hypertension Hypertension Diagnosis:: Hypertension ICD-10 I10 Resting Blood Pressure:: 120/50 [place] [employer] Hypertension Guidelines Peak Exercise Blood Pressure:: 140/52 Outcomes/Goals: Able to verbalize/achieve optimal blood pressure <130/80, Incorporates diet changes & exercise for blood pressure control by DC and Other additional outcomes/goals Interventions/plan: Instruct on optimal blood pressure, hypertension & medications, Instruct on effects of sodium, alcohol, stress, exercise &hypertension and Other additional plan/interventions 30 day Reassessments:: Progressing Reassessment Notes & Comments:: Pt encouraged to continue medications as intructed. Tobacco Cessation Referral Smoking Cessation Referral:: No Individual Education/Counseling:: No Education Schedule Given:: Yes Psychosocial - 30-Day Assess VIsit Date of Eval: 06/16/24 Session #:: 12 History of previous Mental disease:: No History of Emotional Disorders: None Target Goals Target Goals Outcomes/Goals: See list Psychosocial Outcomes/Goals:: ID's personal stressors & 2 strategies to manage stress by discharge and Other Additional outcome/goals: Intervention/Plan: See List Interventions/Plan:: Assess stressors,coping strategies & signs of derpression on admission, Instruct/assist pt to develop coping & personal stress Mgt strategies, Refer to Behavioral Health if appropriate, Refer to Physician if appropriate, Instruct patient to recognize signs & symptoms of depression, Instruct patient to recog and Other additional plan/intervention 30-day Reassessments: 30 day Reassessments:: Met Psychosocial - 60-Day Assess Target Goals Target Goals Outcomes/Goals: See list Psychosocial Outcomes/Goals:: ID's personal stressors & 2 strategies to manage stress by discharge and Other Additional outcome/goals: Psychosocial - 90-Day Assess Target Goals Target Goals Psychosocial - Final Assessmen Target Goals Target Goals Nutrition - 90-Day Assessment Weight Mgt (Other Care) Height: 5 ft 9 in Weight:: 236 lb 8 oz BMI: 34.9 Nutrition - Final Assessment Weight Mgt (Other Care) Height: 5 ft 9 in Weight:: 236 lb 8 oz BMI: 34.9
[2024-06-16 08:48] VITALS: BP 120/50
[2024-06-16 08:51] VITALS: BMI 34.9
--- NOTE | 2024-06-24 08:37 | SLEEP ---
PATIENT FILLED OUT [facility] SLEEPINESS SCALE DURING CARDIAC REHAB CLASS LECTURE. POSITIVE SCREEN SCANNED INTO CR VISIT SL OTHER REFERRAL NOTE. PCP ALSO FAXED RESULTS FOR F/U AT PT NEXT APPT AND PATIENT CONTACTED FOR MORE INFORMATION AND SIGN MRR FOR PREVIOUS RECORDS FROM NEOLA
== END 2024-07-03 23:59 ==
LOC: CR 14:15
PROVIDERS: PCP Family Medicine Geriatric Medicine; Referring Provider Internal Medicine Cardiovascular Disease; Visit Provider Internal Medicine Cardiovascular Disease
DX: R00.0 Tachycardia, unspecified (principal); R07.9 Chest pain, unspecified; Z95.5 Presence of coronary angioplasty implant and graft; I25.10 Atherosclerotic heart disease of native coronary artery without angina pectoris
CPT/HCPCS: 93798

== ENCOUNTER 2024-08-02 14:15 | Outpatient (RCR) | payer MEDICARE, SELFPAY ==
[2024-06-16 08:51] VITALS: BMI 34.9
[2024-07-04 00:20] VITALS: BP 120/50
--- NOTE | 2024-07-15 09:26 | CR.ITP_ITS ---
Exercise - Initial Assessment Physician Prescribed Exercise Modalities: Treadmill and SciFit Stepper Nutrition - Initial Assessment Weight Mgt (Other Care) Height: 5 ft 9 in Weight:: 237 lb BMI: 34.9 Psychosocial - Initial Assess Target Goals Target Goals Referral to Behavioral Health PS - Interventions: Yes: Referral to Behavioral Health if PHQ-9 score >9:, Yes: Referral to [facility], Yes: Referral to Physician if PHQ-9 if score is 5-9: and Yes: Attend Stress Management Classes Patient Health Questionnaire PHQ-9 Screening 60-Day Re-eval Assessment: 1. Little interest or pleasure in doing things: Not at all 2. Feeling down, depressed, or hopeless: Not at all 3. Trouble falling or staying asleep, or sleeping too much: Not at all 4. Feeling tired or having little energy: More than half the days 5. Poor appetite or overeating: Not at all 6. Feeling bad about yourself -- or that you are a failure or have let yourself or your family down: Not at all 7. Trouble concentrating on things, such as reading the newspaper or watching television: More than half the days 8. Moving or speaking so slowly that other people could have noticed. Or the opposite - being so fidgety or restless that you have been moving around a lot more than usual: Not at all 9. Thoughts that you would be better off , or of hurting yourself in some way: Not at all How difficult have these problems made it for you to do your work, take care of things at home, or get along with other people?: Somewhat difficult Total Score: 4 Self-Efficacy 6-Item Scale 60-Day Re-eval Assessment: We would like to know how confident you are in doing certain activities. Please select your confidence level for: Fatigue Select Number: 3 Physical Discomfort or Pain Select Number: 3 Emotional Distress Select Number: 7 Other Symptoms or Health Problems Select Number: 3 Different Tasks and Activities Select Number: 6 Medication Select Number: 4 Total Score:: 4 Nutrition Survey Nutrition Survey Instructions Scoring Instructions Exercise - 30-day Assessment Physician Prescribed Exercise Modalities: Treadmill and SciFit Stepper Exercise - 60-day Assessment Visit Date of Eval: 07/15/24 Session #:: 23 Physician Prescribed Exercise Modalities: Treadmill and SciFit Stepper Frequency: 3x/week for 12 weeks [36 sessions] Intensity: 60-80% of age predicted maximum heart rate reserve Duration: 30 - 45 minutes Current METSs:: 4.4 Target Heart Rate:: 94-122 Current RPE:: 12-13 Maximum Excercise HR:: 122 Resting Blood Pressure: 118/60 Maximum Exercise Blood Pressure: 130/78 EKG Type: A-fib with occas to freq PVC. Rare vent couplet. Outcomes & Goals Goals:: Verbalizes understanding of THR, RPE & goal METS by session 6, Documents in home exercise log/reports 30 min aerobic 5 day/wk by DC, Demonstrates accurate pulse taking by DC and Other additional outcome/goals: see below Intervention & Plan Exercise Program Goals: Instruct on personal THR & RPE, Instruct on MET level & personal MET goal, Show patient to take own pulse /validate performance until accurate, Instruct on home exercise and Other additional plan/int 30-day Reassessments 30 day Reassessments:: Progressing Reassessment Notes & Comments:: THR explained to pt. Physical Activity Home Exercise Physical Activity - Home Exercise: Safe Exercise, Warm-up, Self-monitoring, Cool-Down, Home Exercise > 30 min Daily and Sitting Time <3 hours/daily Outcomes & Goals Outcomes/Goals: Demonstrates correct Warm-up/exercise Cool-Down (S3) if = 2.5 METs, Verbalizes symptoms of exercise intolerance by Session 3 (S3), Demonstrate safe equipment use (S3) & follows exercise prescrition (6) and Other: See below Intervention & Plan Plan/Intervention: Instruct warm-up & cool-down if exercising at > 2 METs, Instruct on symptoms of exercise intolerance & actions to take, Instruct & monitor on saf, Assess intial functional capacity & safety risk and Other See below 30-day Reassessments 30 day Reassessments:: Progressing Reassessment Notes & Comments:: Proper cool down demonstrated and encouraged. Exercise - 90-day Assessment Physician Prescribed Exercise Modalities: Treadmill and SciFit Stepper Exercise - Final/Discharge Physician Prescribed Exercise Modalities: Treadmill and SciFit Stepper Nutrition - 30-Day Assessment Weight Mgt (Other Care) Height: 5 ft 9 in Weight:: 237 lb BMI: 34.9 Nutrition - 60-Day Assessment Program Goals Nutrition Program Goals Patient has diagnosis of Hyperlipidemia (ICD E78)?: Yes Visit Date of Eval: 07/15/24 Session #:: 23 Cholesterol/Lipids (Other Core Measures) Determine presence & major risk factors that modify LDL goal: Hypertension or hypertensive medication, Low HDL cholesterol <40 mg/dL*, Family history of premature CHD in Male < 55 years: female <65 yearsFa and Age men > 45 years; women >/= 55 years Outcomes/Goals: Pt IDs own risk factors & lifestyle modifications by Session 10, Verbalizes symptoms of angina & response by session 3., Pt independently manages and Other Additional Outcomes/Goals: Intervention/Plan: Advocate for lipid panel cholesterol medication if applicable, Instruct on personal lipid levels & lipid goals/NCEP guidelines, Instruct on cholesterol and Other additional plan/int 30-day Reassessments:: Progressing Reassessment Notes & Comments:: pt is to attend nutrition class Diabetes (Other Core Measures) Diabetes Type: Diagnosis Type II ICD-10 E11 Fasting blood glucose:: 131 Insulin dependent injection/pump?: Yes Non-Insulin Dependent?: Yes Do you monitor your blood sugar at home?: Yes Referral to Diabetic Clinic:: No Outcomes/Goals:: Able to state symptoms of, Able to state, Able to state and Other additional Intervention/Plan:: Instruct on, Refer to, Instruct on and Other 30-day Reassessments:: Progressing Reassessment Notes & Comments:: BS are improving with his increased exercise and activity Weight Mgt (Other Care) Height: 5 ft 9 in Weight:: 237 lb BMI: 34.9 Diagnosis Overweight/Obesity BMI> 30% ICD-10 E66: Yes Diagnosis High BMI/Morbid Obesity BMI> 35% ICD-10 Z68: No Outcomes/Goals: Pt sets, maintains & shows weight loss goal & trend during rehab and Other additional outcomes/goals Intervention/Plan: Instruct on ideal BMI & set weight loss goal w/patient, Assist pt to ID & incorporate diet changes for weight loss by S9, Refer to Structured Weight Loss program as appropriate, Encourage goal of using 250- 300dcal per session for weight loss and Other additional plan/interventions 30 day Reassessments:: Progressing Reassessment Notes & Comments:: pt has lost 3 lbs since 07/07/24. Healthy Eating Habits Will attend diet classes:: Yes Outcomes/Goals:: Consume diet rich in vegs,fruits,whole grain/high fiber,fish,lean meat, Limit sat/trans fats,cholesterol & added salts & sugars and Other additional outcome/goals: Intervention/Plan:: Assess current eating habits and Other Additional plan/interventions 30-day Reassessments:: Progressing Reassessment Notes & Comments:: pt is to attend nutrition class Education Gave educational materials for:: Signs & symptoms of hypoglycemia, Signs & symptoms of hyperglycemia, Relate diabetes to coronary artery disease and Healthy eating Core - 60-Day Assessment Visit Date of Eval: 07/15/24 Session #:: 23 Medication Compliance Preventative Medication(s):: LESLIE inhibitor, Clopidogrel/P2Y12 inhibit, Statin/lipid, Beta chata and Eliquis H/O mental health issues: depression, anxiety, or addiction?: No Doesn?t believe in the benefits of treatment?: No Believes medications are unnecessary or harmful?: No Has a concern about medication side effects?: No Expresses concern over the cost of medications?: No Outcomes/Goals: Verbalizes medications,desired effect & common side effects @ DC, Pt self-reports following medication regimen, Keeps card in wallet w/medications listed by DC and Other additional outcome/goals: Interventions/plans: Instruct on medication effects & side effects, Review medication list w/patient every two weeks, Instruct importance of taking meds as ordered & assist problem solving and Other additional 30-day Reassessments:: Progressing Reassessment Notes & Comments:: pt is encouraged to take his meds 100% of the time as prescribed by his physician Tobacco Use Tobacco Use: Non-smoker Hypertension Hypertension Diagnosis:: Hypertension ICD-10 I10 Resting Blood Pressure:: 118/60 [place] [employer] Hypertension Guidelines Peak Exercise Blood Pressure:: 130/78 Outcomes/Goals: Able to verbalize/achieve optimal blood pressure <130/80, Incorporates diet changes & exercise for blood pressure control by DC and Other additional outcomes/goals Interventions/plan: Instruct on optimal blood pressure, hypertension & medications, Instruct on effects of sodium, alcohol, stress, exercise &hypertension and Other additional plan/interventions 30 day Reassessments:: Met Reassessment Notes & Comments:: BP's are with in AHA normal limits Tobacco Cessation Referral Smoking Cessation Referral:: No Individual Education/Counseling:: No Education Schedule Given:: Yes Psychosocial - 30-Day Assess Target Goals Target Goals Referral to Behavioral Health PS - Interventions: Yes: Referral to Behavioral Health if PHQ-9 score >9:, Yes: Referral to [facility], Yes: Referral to Physician if PHQ-9 if score is 5-9: and Yes: Attend Stress Management Classes Outcomes/Goals: See list Psychosocial Outcomes/Goals:: ID's personal stressors & 2 strategies to manage stress by discharge and Other Additional outcome/goals: Psychosocial - 60-Day Assess VIsit Date of Eval: 07/15/24 Session #:: 23 History of previous Mental disease:: No Target Goals Target Goals Psychosocial Test Tool Used:: [employer] QOL Cardiac and PHQ-9 Questionnaire phq-9 Severity Referral to Behavioral Health PS - Interventions: Yes: Referral to Behavioral Health if PHQ-9 score >9:, Yes: Referral to [facility], Yes: Referral to Physician if PHQ-9 if score is 5-9: and Yes: Attend Stress Management Classes Outcomes/Goals: See list Psychosocial Outcomes/Goals:: ID's personal stressors & 2 strategies to manage stress by discharge and Other Additional outcome/goals: Intervention/Plan: See List Interventions/Plan:: Assess stressors,coping strategies & signs of derpression on admission, Instruct/assist pt to develop coping & personal stress Mgt strategies, Refer to Behavioral Health if appropriate, Refer to Physician if appropriate, Instruct patient to recognize signs & symptoms of depression, Instruct patient to recog and Other additional plan/intervention 30-day Reassessments: 30 day Reassessments:: Met Reassessment Notes & Comments:: pt is free of psychosocial disorders Psychosocial - 90-Day Assess Target Goals Target Goals Referral to Behavioral Health PS - Interventions: Yes: Referral to Behavioral Health if PHQ-9 score >9:, Yes: Referral to [facility], Yes: Referral to Physician if PHQ-9 if score is 5-9: and Yes: Attend Stress Management Classes Psychosocial - Final Assessmen Target Goals Target Goals Referral to Behavioral Health PS - Interventions: Yes: Referral to Behavioral Health if PHQ-9 score >9:, Yes: Referral to [facility], Yes: Referral to Physician if PHQ-9 if score is 5-9: and Yes: Attend Stress Management Classes Nutrition - 90-Day Assessment Weight Mgt (Other Care) Height: 5 ft 9 in Weight:: 237 lb BMI: 34.9 Nutrition - Final Assessment Weight Mgt (Other Care) Height: 5 ft 9 in Weight:: 237 lb BMI: 34.9
[2024-07-15 09:33] VITALS: BP 118/60
[2024-07-15 09:39] VITALS: BMI 34.9
[2024-07-15 09:45] VITALS: BP 118/60
== END 2024-08-02 23:59 ==
LOC: CR 14:15
PROVIDERS: PCP Family Medicine Geriatric Medicine; Referring Provider Internal Medicine Cardiovascular Disease; Visit Provider Internal Medicine Cardiovascular Disease
DX: R00.0 Tachycardia, unspecified (principal); R07.9 Chest pain, unspecified; Z95.5 Presence of coronary angioplasty implant and graft; I25.10 Atherosclerotic heart disease of native coronary artery without angina pectoris
CPT/HCPCS: 93798

== ENCOUNTER → 2024-08-03 | Outpatient (CLI) | payer MEDICARE, SELFPAY ==
[2024-06-16 08:51] VITALS: BMI 34.9
[2024-07-15 09:39] VITALS: BMI 34.9
== END | disposition home or self-care (01) ==
LOC: POLAB3 14:15
PROVIDERS: PCP Family Medicine Geriatric Medicine; Visit Provider Family Medicine Geriatric Medicine
DX: E03.9 Hypothyroidism, unspecified (principal)
CPT/HCPCS: 36415; 84443

== ENCOUNTER 2024-08-04 15:21 | Emergency (ER) | payer MEDICARE, SELFPAY ==
[2024-07-15 09:39] VITALS: BMI 34.9
[2024-08-04 15:22] VITALS: BP 137/55; PULSE 65; RESP 18; TEMP 35.8; O2SAT 95
[2024-08-04 15:34] VITALS: BMI 36.1
--- NOTE | 2024-08-04 15:50 | EKG12_ITS ---
Test Reason : DIZZINESS/VTACH Blood Pressure : / mmHG Vent. Rate : 063 BPM Atrial Rate : 000 BPM P-R Int : 000 ms QRS Dur : 088 ms QT Int : 404 ms P-R-T Axes : 000 030 -16 degrees QTc Int : 413 ms Atrial fibrillation Abnormal ECG Confirmed by ALBERT NEWMAN, ASHLEY ([id number]), editorial manager FEDERICO MCHUGH ([id number]) on 08/06/2024 11:43:03 AM Referred By: Fernando Matta Confirmed By:ASHLEY PRICE MD
--- NOTE | 2024-08-04 15:52 | EDS_ITS ---
HPI History of Present Illness Chief Complaint: Palpitations Informant: patient and PCP (cardiology staff) Narrative Narrative: 79-year-old male in the ER for lightheadedness. No presyncope or syncope or chest discomfort or dyspnea. He still feels that way. Started about 20 or 30 minutes ago. He was about to get a Holter monitor put on was not on the monitor when he started feeling this way, and they aborted the Holter and sent him right to the emergency department. Earlier, today in cardiac rehab, he was on one of the exercise machines and was asymptomatic when he suddenly started having wide- complex tachycardia for about 40 seconds. He states he felt fine and staff told him to stop. He then remembers feeling lightheaded then it went away. He did not have palpitations, near-syncope, or dyspnea out of proportion for his exercising at the time. He has a history of chronic atrial fibrillation and states that he is always in A-fib. He had a stent a couple of months ago which is why he is in cardiac rehab right now. He follows annually with Dr. Staton with EP at [facility], he states he had a routine follow-up with him couple weeks ago and he changed nothing. A couple months ago, the patient did feel rapid palpitations and chest discomfort, this was a week or 2 after he had his stent placed, so he was admitted here and had another heart catheterization, showing that the stent was patent and everything looked good. The patient states currently, while on the monitor, he feels lightheaded the same as he did a little bit earlier before coming to the ER. He denies any other symptoms right now. [facility] Medical History CAD (coronary artery disease) Atrial fibrillation Neck pain Segmental and somatic dysfunction of cervical region Degenerative disc disease, cervical HARRISON (dyspnea on exertion) Dyslipidemia Aortic stenosis Iron deficiency BPH (benign prostatic hyperplasia) History of carotid artery stenosis Type 2 diabetes mellitus Hypothyroidism Hyperlipidemia Hypertension Diabetes WILSON (iron deficiency anemia) History of kidney stones Atrial fibrillation History of migraine Seasonal allergies Home Medications ?Medication ?Instructions ?Recorded ?Last Taken ?Type atorvastatin 40 mg tablet 40 mg PO DAILY cholesterol 10/22/19 05/06/24 History lisinopril 2.5 mg tablet 2.5 mg PO DAILY blood pressure 07/22/22 05/06/24 History melatonin 5 mg capsule 5 mg PO DAILY sleep 09/18/23 Unknown History polysaccharide iron complex 150 mg 150 mg PO DAILY supplement 10/09/23 05/06/24 History iron capsule (Ferrex) bumetanide 2 mg tablet 2 mg PO DAILY water pill 11/25/23 05/06/24 History levothyroxine 125 mcg tablet 125 mcg PO DAILY thyroid 11/25/23 Unknown History apixaban 5 mg tablet (Eliquis) 5 mg PO BID blood thinner 03/16/24 05/06/24 History insulin degludec 200 unit/mL (3 44 unit subcut HS diabetes 04/20/24 05/06/24 History mL) subcutaneous pen (Tresiba FlexTouch U-200 insulin) metoprolol tartrate 25 mg tablet 25 mg PO BID heart rate 04/20/24 05/06/24 History clopidogrel 75 mg tablet 75 mg PO DAILY #30 tabs 04/28/24 05/06/24 Rx mecobalamin (vitamin B12) 1,000 1,000 mcg PO DAILY 05/07/24 05/06/24 History mcg chewable tablet metformin 1,000 mg tablet 1,000 mg PO BID 05/07/24 05/06/24 History potassium chloride 20 mEq 20 meq PO BID 05/07/24 05/06/24 History tablet,extended release(part/cryst) (Klor-Con M) amiodarone 200 mg tablet 200 mg PO DAILY 30 days #30 tabs 05/08/24 Unknown Rx Allergy/AdvReac Type Severity Reaction Status Date / Time alcohol AdvReac LIVER Verified 08/04/24 15:22 ISSUES Sulfa (Sulfonamide AdvReac Other Verified 08/04/24 15:22 Antibiotics) Family History Mother Cancer Father Myocardial infarction Surgical History Hx of cardiac catheterization (~04/28/24) Stented coronary artery (~04/28/24) Hx of bilateral cataract extraction History of transurethral resection of prostate History of urethral stent History of hip replacement History of knee surgery History of bilateral total hip arthroplasty Social History Smoking Status: Never smoker alcohol intake: former year quit: 1983 substance use type: does not use caffeine: No ROS ROS ED Constitutional Constitutional ED: Denies chills or fever(s) Eyes Eyes: Denies change in vision or diplopia ENT ENT ED: Denies rhinorrhea or sore throat Cardiovascular Cardiovascular: Reports lightheadedness; Denies chest pain, orthostatic symptoms, palpitations, racing heartbeat or syncope Respiratory/Chest Respiratory/Chest: Denies cough or dyspnea Gastrointestinal Gastrointestinal: Denies abdominal pain, diarrhea, nausea or vomiting Genitourinary Genitourinary ED: Denies dysuria or hematuria Musculoskeletal Musculoskeletal: Denies back pain or neck pain Integumentary Denies abscess or rash Neurologic Neurologic: Denies headache(s), paresthesias or weakness Psychiatric Psychiatric: Denies anxiety or suicidal thoughts EXAM Physical Exam Const Vital Signs: 08/04/24 15:22 08/04/24 15:32 08/04/24 16:16 Temperature 96.5 F L Temperature Source Temporal Pulse Rate 65 Respiratory Rate 18 Respiratory Effort Normal Non-Labored Blood Pressure 137/55 H Blood Pressure Mean 82 Pulse Ox 95 Oxygen Delivery Method Room Air Room Air 08/04/24 16:34 08/04/24 17:18 Temperature Temperature Source Pulse Rate 57 L 67 Respiratory Rate 22 H 21 H Respiratory Effort Blood Pressure 140/61 H Blood Pressure Mean 87 Pulse Ox 95 Oxygen Delivery Method Room Air Positive well nourished and well developed General Appearance ED: well developed and NAD HEENT Reports moist mucous membranes normocephalic and atraumatic Eyes PERRL and EOMs intact bilaterally Neck full ROM and supple Resp normal respiratory effort and clear to auscultation bilaterally Cardio Rate: Negative for tachycardic Rhythm: abnormal rhythm irregularly irregular Heart Sounds: murmur systolic I/ GI non-tender and non-distended Auscultation: normoactive bowel sounds Palpation: soft Back/Spine no CVA tenderness General Back: other FROM Extremity normal to inspection General Extremety ED: Negative for edema, pulses abnormal or tenderness General Extremity: Negative for edema or pulses abnormal Neuro oriented x3, CN's II-XII intact bilaterally and no sensory deficits noted Sensorium / Orientation: awake and alert Motor Exam: strength 5/5 throughout Skin no rashes or lesions noted and no wounds MDM MDM MDM Narrative Medical decision making narrative: Cardiology brought his summary down outpatient rehab, it was a 42nd run of wide- complex tachycardia, the rate is somewhere between 100 and 150. It looks more like A-fib with aberrancy than ventricular tachycardia. He currently is in rate controlled atrial fibrillation narrow complex QRS, and he states he feels lightheaded just like he did a little bit ago. While running a troponin, I gave him 1/2 L of IV fluid bolus. Other general labs are already being run as an outpatient by cardiology those are pending. Also reviewed his repeat heart cath after the stent when he was having palpitations and chest discomfort on 05/07/2024 showing previously placed stent LAD patent mild disease noted in the circumflex and the RCA both of which are nonobstructive. I also reviewed an outpatient note from Dr. Staton recently on 07/14/24, where he was seen in follow-up as the patient discussed. He does discussed the patient having intermittent lightheadedness, and he does not think that was related to his permanent atrial fibrillation which he has had for many years without symptoms, and he does not think that it would be reasonable expectation to restore and maintain normal sinus rhythm in this patient. I reviewed his outpatient labs from earlier before he was sent here which were unremarkable. I ran troponin it is normal at 17, we sent a second while we observed him, it also came back normal and he had no symptoms or telemetry events while in the emergency department. Actually was able to speak with Dr. Staton with EP cardiology at [facility]. He said he reviewed his records of this patient and actually had submitted for records from our cardiology group, as he was unsure why the patient was on amiodarone since he has permanent asymptomatic A-fib. From records I was able to review and shared with him it appears that he had episode of what appeared to be ventricular tachycardia in the past. I discussed with him the 40-sec wide-complex tachycardia episode that he had today and sent him the records via fax. At this point he states that he does not need to be transferred emergently, and he would be happy to follow-up with the patient as an outpatient. After they get the records and review them, their office will contact the patient for next recommended follow-up. For now he would recommend maintaining the medications per his current test evaluator and agrees with having us place a holter monitor as his test evaluator was planning on doing for him today (he already has an order for it we will use). The patient is comfortable with this and does want to go home. He feels fine. He understands that if he has any syncopal episodes he should return to the ER immediately, or if he has any other chest pain or significant palpitations. He is comfortable with that plan. History & Record Review Additional record(s) reviewed:: Prior outpatient record (rhythm strips from outpt rehab today) and Prior labs (today outpt) Lab Data Attestation: I reviewed the patient's lab results. Labs: Laboratory Results - last 24 hr 08/04/24 08/04/24 16:10 18:20 Troponin I High Sens 17 19 Rhythm Strip Rhythm Strip: A-fib Rate: 65 Ectopy: PVC(s) EKG Initial EKG: Attestation: I personally reviewed and interpreted this EKG as follows: Interpretation: No Acute Injury Pattern and Atrial Fibrillation Comments: narrow complex QRS Prior EKG tracings: available for review Prior: Unchanged Management Discussion w/another healthcare provider: [employer] (EP cardiology Dr. Staton ) Discharge Plan Triage Chief Complaint: Palpitations ED Provider: Fernando Matta Dx/Rx/DC Orders Clinical Impression: Wide-complex tachycardia, Atrial fibrillation Instructions: ED About Arrhythmias, ED Holter Monitor Prescriptions: Continued lisinopril 2.5 mg tablet 2.5 mg PO DAILY polysaccharide iron complex [Ferrex 150] 150 mg iron capsule 150 mg PO DAILY melatonin 5 mg capsule 5 mg PO DAILY levothyroxine 125 mcg tablet 125 mcg PO DAILY bumetanide 2 mg tablet 2 mg PO DAILY Eliquis 5 mg tablet 5 mg PO BID metoprolol tartrate 25 mg tablet 25 mg PO BID insulin degludec [Tresiba FlexTouch U-200] 200 unit/mL (3 mL) insulin pen 44 unit subcut QHS atorvastatin 40 MG tablet 40 mg PO DAILY metformin 1,000 mg tablet 1,000 mg PO BID potassium chloride [Klor-Con M20] 20 mEq tablet,ER particles/crystals 20 meq PO BID mecobalamin (vitamin B12) 1,000 mcg tablet,chewable 1,000 mcg PO DAILY amiodarone 200 mg Tablet 200 mg PO DAILY 30 Days Qty: 30 2RF clopidogrel 75 mg Tablet 75 mg PO DAILY Qty: 30 11RF Primary Care Provider: Ivan Pinzon Chi Referrals: Reggie Staton MD [Non-Staff] - (his office should contact you regarding a follow up appt) Ivan Pinzon Chi, MD [Primary Care Provider] - Print Language: [place] Disposition Disposition: Home, Self Care
[2024-08-04] MEDS: 0.9% Normal Saline (500mL Bag) 500 ML 999 ML IV (16:13)
[2024-08-04 16:34] VITALS: PULSE 57; RESP 22
[2024-08-04 16:47] LABS: Troponin-I HS (w/2H Reflex) 17 pg/mL (3.0-78.0)
[2024-08-04 17:18] VITALS: BP 140/61; PULSE 67; RESP 21; O2SAT 95
[2024-08-04 18:16] LABS: Reflex Troponin-HS? (from REC) Y
[2024-08-04 18:50] LABS: Troponin-I HS 19 pg/mL (3.0-78.0)
[2024-08-04 19:00] VITALS: BP 137/63; PULSE 65; RESP 18; O2SAT 95
[2024-08-04 19:14] VITALS: BP 137/63; PULSE 65; RESP 18; TEMP 36.4; O2SAT 95
== END 2024-08-04 19:26 | disposition home or self-care (01) ==
PROVIDERS: Emergency Provider Emergency Medicine; PCP Family Medicine Geriatric Medicine; Referring Provider Emergency Medicine; Visit Provider Emergency Medicine
DX: I47.29 Other ventricular tachycardia (principal); I48.91 Unspecified atrial fibrillation; E11.9 Type 2 diabetes mellitus without complications; I25.10 Atherosclerotic heart disease of native coronary artery without angina pectoris; Z95.5 Presence of coronary angioplasty implant and graft
CPT/HCPCS: 84484; 93005; 96360; 99283; J7040; A4216

== ENCOUNTER → 2024-08-04 | Outpatient (CLI) | payer MEDICARE, SELFPAY ==
[2024-07-15 09:39] VITALS: BMI 34.9
--- NOTE | 2024-08-04 15:32 | CPS ---
This RT was called to place pt on cardiac Holter monitor. Pt was sitting in chair while RT got all the paper work ready. As RT was explaining pt to write down anything he was feeling in the patient diary, pt states what if I am light headed now? Pt states he is light headed and dizzy at this time. RT asked pt what did cardiac rehab say to do if you become light headed or dizzy. Pt states they pretty much said to go to ER. Pt stood up to head to the ER, RT noticed pt started losing his balance and was stumbling. Pt made comment about I guess I am losing my balance too. RT was able to grab wheelchair and take pt down to ER triage.
[2024-08-04 15:59] LABS: Absolute Lymphocyte Count 1.62 X10^3/uL (0.83-4.51); Absolute Neutrophil Count 4.7 X10^3/uL (2.0-7.7); Basophil# 0.05 X10^3/uL; Basophil% 0.7 % (0-1); Eosinophil# 0.22 X10^3/uL; Hematocrit 39.2 % (40-54); Hemoglobin 12.8 g/dL (13.0-16.5); Lymphocyte # 1.62 X10^3/ul (0.83-4.51); Lymphocyte % 22.2 % (19-41); Mean Corp Hgb Conc 32.7 g/dL (32-36); Mean Corpuscular Hgb 30.4 pg (27.0-32.0); Mean Corpuscular Volume 93.1 fL (80-94); Mean Platelet Vol. 10.6 fl (6.2-12.0); Monocyte# 0.72 X10^3/uL; Monocyte% 9.8 % (0-10); NRBC Flagged by Analyzer 0 % (0-5); Neutrophil # 4.68 X10^3/uL (2.7-7.7); Platelet Count 170 K/mm3 (150-450); RBC Distribution Width CV 14.5 % (11.6-14.6); RBC Distribution Width SD 48.9 fl (35.1-43.9); Red Blood Count 4.21 M/mm3 (4.6-6.2); White Blood Count 7.3 K/mm3 (4.4-11.0)
[2024-08-04 16:33] LABS: AST(SGOT) 16 U/L (15-37); Alanine Aminotransfer ALT/SGPT 22 U/L (16-61); Albumin, Serum 3.7 g/dL (3.2-5.0); Alkaline Phosphatase 114 U/L (45-117); Anion Gap 7 (5-15); BUN 31 mg/dL (7-18); BUN/Creat Ratio 24.2 RATIO (10-20); Calcium,Total 9.7 mg/dL (8.5-10.1); Chloride 104 mmol/L (98-107); Creatinine, Serum 1.28 mg/dL (0.70-1.30); EST Glomerular Filtration Rate 58 mL/min (>60); Est Glom Filt Rate - Afr Amer 70 mL/min (>60); Globulin 3.7 g/dL (2.2-4.2); Glucose 162 mg/dL (74-106); Magnesium 1.8 mg/dL (1.6-2.6); Potassium 4.4 mmol/L (3.5-5.1); Protein, Total 7.4 g/dL (6.4-8.2); Sodium Level 140 mmol/L (136-145)
== END | disposition home or self-care (01) ==
PROVIDERS: PCP Family Medicine Geriatric Medicine; Referring Provider Internal Medicine Cardiovascular Disease; Visit Provider Internal Medicine Cardiovascular Disease
DX: I47.20 Ventricular tachycardia, unspecified (principal); I25.10 Atherosclerotic heart disease of native coronary artery without angina pectoris; Z95.5 Presence of coronary angioplasty implant and graft; Z79.899 Other long term (current) drug therapy
CPT/HCPCS: 36415; 80053; 83735; 85025; 93225; 93226

== ENCOUNTER 2024-08-09 15:37 | Emergency (ER) | payer MEDICARE, SELFPAY ==
[2024-07-15 09:39] VITALS: BMI 34.9
[2024-08-09] VITALS (10 sets, daily range): BP systolic 137–187; BP diastolic 48–82; PULSE 36–89; RESP 16–20; TEMP 36.2–36.8; O2SAT 95–99; BMI 36.1
--- NOTE | 2024-08-09 16:36 | EX.ED.DYSGE1 ---
HPI <STEPHANIE Gonzalez - Last Filed: 08/09/24 19:50> History of Present Illness Chief Complaint: Palpitations Narrative Narrative: Patient is a 79-year-old male with history of CAD, hypertension, type 2 diabetes, hypothyroidism, atrial fibrillation on Eliquis who presents to the emergency department for further evaluation secondary to his palpitations. Patient was seen here 5 days ago for something similar. Patient does see Dr. Ceja. Patient on his Holter monitor had a 6.3-second pause, patient also was going in and out of V. tach while he was in cardiac rehab. Secondary the patient having continuous dizziness, the html developer wanted him to go to the ER so that he can be transferred somewhere with electrophysiology. Patient states that other than dizziness which she has been feeling, he has no pain. [facility] <STEPHANIE Gonzalez - Last Filed: 08/09/24 19:50> [facility] Medical History CAD (coronary artery disease) Atrial fibrillation Neck pain Segmental and somatic dysfunction of cervical region Degenerative disc disease, cervical HARRISON (dyspnea on exertion) Dyslipidemia Aortic stenosis Iron deficiency BPH (benign prostatic hyperplasia) History of carotid artery stenosis Type 2 diabetes mellitus Hypothyroidism Hyperlipidemia Hypertension Diabetes WILSON (iron deficiency anemia) History of kidney stones Atrial fibrillation History of migraine Seasonal allergies Home Medications ?Medication ?Instructions ?Recorded ?Last Taken ?Type atorvastatin 40 mg tablet 40 mg PO DAILY cholesterol 10/22/19 05/06/24 History lisinopril 2.5 mg tablet 2.5 mg PO DAILY blood pressure 07/22/22 05/06/24 History melatonin 5 mg capsule 5 mg PO DAILY sleep 09/18/23 Unknown History polysaccharide iron complex 150 mg 150 mg PO DAILY supplement 10/09/23 05/06/24 History iron capsule (Ferrex) bumetanide 2 mg tablet 2 mg PO DAILY water pill 11/25/23 05/06/24 History levothyroxine 125 mcg tablet 125 mcg PO DAILY thyroid 11/25/23 Unknown History apixaban 5 mg tablet (Eliquis) 5 mg PO BID blood thinner 03/16/24 05/06/24 History insulin degludec 200 unit/mL (3 44 unit subcut QHS diabetes 04/20/24 05/06/24 History mL) subcutaneous pen (Tresiba FlexTouch U-200 insulin) metoprolol tartrate 25 mg tablet 25 mg PO BID heart rate 04/20/24 05/06/24 History clopidogrel 75 mg tablet 75 mg PO DAILY #30 tabs 04/28/24 05/06/24 Rx mecobalamin (vitamin B12) 1,000 1,000 mcg PO DAILY 05/07/24 05/06/24 History mcg chewable tablet metformin 1,000 mg tablet 1,000 mg PO BID 05/07/24 05/06/24 History potassium chloride 20 mEq 20 meq PO BID 05/07/24 05/06/24 History tablet,extended release(part/cryst) (Klor-Con M) amiodarone 200 mg tablet 200 mg PO DAILY #90 tabs 08/09/24 Unknown Rx Allergy/AdvReac Type Severity Reaction Status Date / Time alcohol AdvReac LIVER Verified 08/09/24 15:37 ISSUES Sulfa (Sulfonamide AdvReac Other Verified 08/09/24 15:37 Antibiotics) Family History Mother Cancer Father Myocardial infarction Surgical History Hx of cardiac catheterization (~04/28/24) Stented coronary artery (~04/28/24) Hx of bilateral cataract extraction History of transurethral resection of prostate History of urethral stent History of hip replacement History of knee surgery History of bilateral total hip arthroplasty Social History Smoking Status: Never smoker alcohol intake: former year quit: 1983 substance use type: does not use caffeine: No ROS <STEPHANIE Gonzalez - Last Filed: 08/09/24 19:50> ROS ED ROS Narrative Constitutional: Negative for fever, chills, weight loss, weakness Eyes: Negative for vision loss, vision change, double vision ENT: Negative for any sore throat, ear pain, congestion Cardiovascular: Negative for any chest pain, tightness. Positive for palpitations Respiratory: Negative for any cough, sputum production, hemoptysis, dyspnea, dyspnea on exertion, orthopnea Gastrointestinal: Negative for any abdominal pain, nausea, vomiting, diarrhea, constipation, blood in stool, blood in vomit : Negative for any urinary frequency, dysuria, retention, blood in urine Muscle skeletal: Negative for any neck pain, back pain Neurological: Negative for any headache, syncope. Positive for dizziness Skin: Negative for any rashes, itching, abrasions, lacerations Psychiatric: Negative for any depression, anxiety, stress, suicidal ideation, homicidal ideation Hematologic: Negative for any excessive bruising, easy bleeding EXAM <STEPHANIE Gonzalez - Last Filed: 08/09/24 19:50> Physical Exam Narrative Exam Narrative: Vital signs reviewed. Alert and orient x 4, patient is in no distress. HEET: Head normocephalic atraumatic, TMs clear bilaterally. Posterior pharynx is clear, moist mucous membranes. Nares clear bilaterally. Neck: Supple with no lymphadenopathy or tenderness. No signs of meningismus. Cardiac: Irregular rate no murmurs gallops or rubs, equal peripheral pulses bilaterally. Respiratory: Lungs clear to auscultation bilaterally. No chest tenderness. Abdomen: Soft, nontender, nondistended. No abdominal bruit or pulsatile masses. No hepatosplenomegaly Extremities: No peripheral edema, no signs of gross trauma or deformity. Active full range of motion of all extremities. Neuro: Cranial nerves II through XII intact, no focal neurological deficits. Skin: Clean dry and intact with no rash, purpura, petechiae, vesicles or pustules. Backs/flank: No CVA tenderness, no midline spinal tenderness, no deformity. Psych: Normal mood and affect. No SI, HI or acute psychosis. Const Vital Signs: 08/09/24 15:38 08/09/24 16:27 08/09/24 16:37 Temperature 97.1 F L Temperature Source Temporal Pulse Rate 89 53 L Respiratory Rate 18 16 Respiratory Effort Normal Non-Labored Blood Pressure 137/82 H 142/68 H Blood Pressure Mean 100 92 Pulse Ox 99 Oxygen Delivery Method Room Air 08/09/24 17:00 08/09/24 17:19 08/09/24 17:19 Temperature Temperature Source Pulse Rate 60 36 L 60 Respiratory Rate 18 Respiratory Effort Blood Pressure 145/48 H Blood Pressure Mean 80 Pulse Ox Oxygen Delivery Method 08/09/24 18:00 Temperature Temperature Source Pulse Rate 50 L Respiratory Rate 18 Respiratory Effort Blood Pressure 179/60 H Blood Pressure Mean 99 Pulse Ox 97 Oxygen Delivery Method Room Air <Dr. Segun Houser DO - Last Filed: 08/09/24 19:27> Physical Exam Const Vital Signs: 08/09/24 15:38 08/09/24 16:27 08/09/24 16:37 Temperature 97.1 F L Temperature Source Temporal Pulse Rate 89 53 L Respiratory Rate 18 16 Respiratory Effort Normal Non-Labored Blood Pressure 137/82 H 142/68 H Blood Pressure Mean 100 92 Pulse Ox 99 Oxygen Delivery Method Room Air 08/09/24 17:00 08/09/24 17:19 08/09/24 17:19 Temperature Temperature Source Pulse Rate 60 36 L 60 Respiratory Rate 18 Respiratory Effort Blood Pressure 145/48 H Blood Pressure Mean 80 Pulse Ox Oxygen Delivery Method 08/09/24 18:00 Temperature Temperature Source Pulse Rate 50 L Respiratory Rate 18 Respiratory Effort Blood Pressure 179/60 H Blood Pressure Mean 99 Pulse Ox 97 Oxygen Delivery Method Room Air MDM <EMILY GonzalezC - Last Filed: 08/09/24 19:50> [facility] Lab Data Labs: Laboratory Results - last 24 hr 08/09/24 16:55 WBC 7.6 RBC 3.83 L Hgb 11.8 L Hct 36.0 L MCV 94.0 MCH 30.8 MCHC 32.8 RDW Std Deviation 49.3 H RDW Coeff of Cooper 14.4 Plt Count 133 L MPV 10.8 Immature Gran % (Auto) 0.400 Neut % (Auto) 68.0 Lymph % (Auto) 18.0 L [place] % (Auto) 10.4 H Eos % (Auto) 2.4 Baso % (Auto) 0.8 Absolute Neuts (auto) 5.2 Absolute Lymphs (auto) 1.36 Nucleated RBC % 0 Sodium 140 Potassium 4.4 Chloride 108 H Carbon Dioxide 28.0 Anion Gap 4 L BUN 23 H Creatinine 1.23 Est GFR (MDRD) Af Amer 73 Est GFR (MDRD) Non-Af 61 BUN/Creatinine Ratio 18.7 Glucose 130 H Calcium 9.3 Magnesium 1.7 Troponin I High Sens 22 EKG Atrial fibrillation: Attestation: I personally reviewed and interpreted this EKG as follows: Comments: Atrial fibrillation with slow ventricular response, rate of 53 bpm, QRS duration 94 ms, no acute ST elevation, no acute infarct noted. Treatment and Re-Evaluation :: Differential diagnosis includes however is not limited to: ACS, MD, atrial fibrillation, V. tach, acute on chronic dizziness, electrode abnormality Patient appears generally well, vital signs are stable, patient is nontoxic-appearing. Presenting to the emergency department for ongoing palpitations, abnormal findings on a Holter monitor, V. tach, referred here by cardiology. Patient is in no distress, patient dates he feels lightheaded however this is been ongoing for several weeks. I did speak with Dr. Ceja who is a html developer. He states that he had a 6.3-second pause on his Holter monitor, he is also having runs of V. tach while he is at cardiac rehab today, they referred him to the emergency department to be transferred to a facility with EP. Patient will receive some basic laboratory values, patient has seen Dr. Staton from [facility] in the past. Patient's heart rate did go into the 20s, patient states he does feel lightheaded, patient does have pacer pads placed now. Once I get some blood work back, I will reach out to [facility]. Patient CBC shows a stable anemia with a hemoglobin 11.8, patient's chemistries show a creatinine of 1.23, this looks to be stable over the last several months. Patient's initial troponin was 22, at this time, I will reach out to [facility], secondary to the patient's bradycardia, pauses, do we have the patient benefit from a tertiary care center. I spoke with who is the hospitalist at [facility], she will accept the patient. I spoke with the patient, he is stable. Patient remained stable on her monitor. Currently waiting for a bed at [facility]. Patient will be stable for a floor bed there. <Dr. Segun Houser, DO - Last Filed: 08/09/24 19:27> [facility] History & Record Review Discussion w/independent historian: Patient Lab Data Attestation: I reviewed the patient's lab results. Labs: Laboratory Results - last 24 hr 08/09/24 16:55 WBC 7.6 RBC 3.83 L Hgb 11.8 L Hct 36.0 L MCV 94.0 MCH 30.8 MCHC 32.8 RDW Std Deviation 49.3 H RDW Coeff of Cooper 14.4 Plt Count 133 L MPV 10.8 Immature Gran % (Auto) 0.400 Neut % (Auto) 68.0 Lymph % (Auto) 18.0 L [place] % (Auto) 10.4 H Eos % (Auto) 2.4 Baso % (Auto) 0.8 Absolute Neuts (auto) 5.2 Absolute Lymphs (auto) 1.36 Nucleated RBC % 0 Sodium 140 Potassium 4.4 Chloride 108 H Carbon Dioxide 28.0 Anion Gap 4 L BUN 23 H Creatinine 1.23 Est GFR (MDRD) Af Amer 73 Est GFR (MDRD) Non-Af 61 BUN/Creatinine Ratio 18.7 Glucose 130 H Calcium 9.3 Magnesium 1.7 Troponin I High Sens 22 Management Discussion w/another healthcare provider: Rehabilitation Program Coordinator (Dr Ceja (Cardiology)) Treatment and Re-Evaluation :: Differential diagnosis includes however is not limited to: ACS, MD, atrial fibrillation, V. tach, acute on chronic dizziness, electrode abnormality Patient appears generally well, vital signs are stable, patient is nontoxic-appearing. Presenting to the emergency department for ongoing palpitations, abnormal findings on a Holter monitor, V. tach, referred here by cardiology. Patient is in no distress, patient dates he feels lightheaded however this is been ongoing for several weeks. I did speak with Dr. Ceja who is a html developer. He states that he had a 6.3-second pause on his Holter monitor, he is also having runs of V. tach while he is at cardiac rehab today, they referred him to the emergency department to be transferred to a facility with EP. Patient will receive some basic laboratory values, patient has seen Dr. Staton from [facility] in the past. Patient's heart rate did go into the 20s, patient states he does feel lightheaded, patient does have pacer pads placed now. Once I get some blood work back, I will reach out to [facility]. Patient CBC shows a stable anemia with a hemoglobin 11.8, patient's chemistries show a creatinine of 1.23, this looks to be stable over the last several months. Patient's initial troponin was 22, at this time, I will reach out to [facility], secondary to the patient's bradycardia, pauses, do we have the patient benefit from a tertiary care center. I spoke with who is the hospitalist at [facility], she will accept the patient. I spoke with the patient, he is stable. Patient remained stable on her monitor. Currently waiting for a bed at [facility]. Patient will be stable for a floor bed there. I have personally performed a face to face assessment of the patient and have reviewed the ROLF Note. I performed a substantive portion of the visit including all aspects of the following. My jernigan findings include: History is 79-year-old male sent to the emergency room from cardiac rehab due to ventricular tachycardia and bradycardia/pauses. Patient recently turned in a Holter monitor. He was just in the emergency department for similar evaluation. The patient notes intermittent lightheadedness. He has seen Dr. Staton at [facility] Previously. He has chronic atrial fibrillation. Patient is on Eliquis Exam is afebrile patient's heart appears to be in rate controlled atrial fibrillation. He at times has significant bradycardia into the 30s. Medical Decison Making basic labs will be obtained including potassium and magnesium. Case was discussed with [facility] and the patient will be transferred for EP study. Discharge Plan Triage Chief Complaint: Palpitations ED Midlevel Provider: Iam Nava ED Provider: Segun Houser Dx/Rx/DC Orders Prescriptions: No Action lisinopril 2.5 mg tablet 2.5 mg PO DAILY polysaccharide iron complex [Ferrex 150] 150 mg iron capsule 150 mg PO DAILY melatonin 5 mg capsule 5 mg PO DAILY levothyroxine 125 mcg tablet 125 mcg PO DAILY bumetanide 2 mg tablet 2 mg PO DAILY Eliquis 5 mg tablet 5 mg PO BID metoprolol tartrate 25 mg tablet 25 mg PO BID insulin degludec [Tresiba FlexTouch U-200] 200 unit/mL (3 mL) insulin pen 44 unit subcut QHS atorvastatin 40 MG tablet 40 mg PO DAILY metformin 1,000 mg tablet 1,000 mg PO BID potassium chloride [Klor-Con M20] 20 mEq tablet,ER particles/crystals 20 meq PO BID mecobalamin (vitamin B12) 1,000 mcg tablet,chewable 1,000 mcg PO DAILY clopidogrel 75 mg Tablet 75 mg PO DAILY Qty: 30 11RF amiodarone 200 mg tablet 200 mg PO DAILY Qty: 90 3RF Primary Care Provider: Ivan Pinzon Chi Referrals: Ivan Pinzon Chi, MD [Primary Care Provider] - Print Language: Paraguayan
--- NOTE | 2024-08-09 17:14 | ED.RN ---
Pt placed on defib pads for pauses and intermittent HR in mid 30s
[2024-08-09 17:19] LABS: Absolute Lymphocyte Count 1.36 X10^3/uL (0.83-4.51); Absolute Neutrophil Count 5.2 X10^3/uL (2.0-7.7); Basophil# 0.06 X10^3/uL; Basophil% 0.8 % (0-1); Eosinophil# 0.18 X10^3/uL; Eosinophils% 2.4 % (0-5); Hemoglobin 11.8 g/dL (13.0-16.5); Lymphocyte # 1.36 X10^3/ul (0.83-4.51); Mean Corp Hgb Conc 32.8 g/dL (32-36); Mean Corpuscular Hgb 30.8 pg (27.0-32.0); Mean Platelet Vol. 10.8 fl (6.2-12.0); Monocyte# 0.79 X10^3/uL; Monocyte% 10.4 % (0-10); NRBC Flagged by Analyzer 0 % (0-5); Neutrophil # 5.15 X10^3/uL (2.7-7.7); Platelet Count 133 K/mm3 (150-450); RBC Distribution Width CV 14.4 % (11.6-14.6); RBC Distribution Width SD 49.3 fl (35.1-43.9); Red Blood Count 3.83 M/mm3 (4.6-6.2); White Blood Count 7.6 K/mm3 (4.4-11.0)
[2024-08-09 17:22] LABS: Anion Gap 4 (5-15); BUN 23 mg/dL (7-18); BUN/Creat Ratio 18.7 RATIO (10-20); Calcium,Total 9.3 mg/dL (8.5-10.1); Chloride 108 mmol/L (98-107); Creatinine, Serum 1.23 mg/dL (0.70-1.30); EST Glomerular Filtration Rate 61 mL/min (>60); Est Glom Filt Rate - Afr Amer 73 mL/min (>60); Glucose 130 mg/dL (74-106); Magnesium 1.7 mg/dL (1.6-2.6); Potassium 4.4 mmol/L (3.5-5.1); Sodium Level 140 mmol/L (136-145); Troponin-I HS 22 pg/mL (3.0-78.0)
--- NOTE | 2024-08-09 19:35 | EKG12_ITS ---
Test Reason : Blood Pressure : / mmHG Vent. Rate : 053 BPM Atrial Rate : 000 BPM P-R Int : 000 ms QRS Dur : 094 ms QT Int : 450 ms P-R-T Axes : 000 023 -17 degrees QTc Int : 422 ms Atrial fibrillation with slow ventricular response Nonspecific ST abnormality Abnormal ECG Confirmed by Bolivar Galarza ([id number]), acquisitions editor FEDERICO MCHUGH ([id number]) on 08/11/2024 6:31:43 AM Referred By: Confirmed By:Bolivar Galarza
[2024-08-10] VITALS: BP 186/49; PULSE 49; RESP 18; O2SAT 95
== END 2024-08-10 00:40 | disposition short-term general hospital (02) ==
LOC: ED 16:50
PROVIDERS: Emergency Provider Emergency Medicine; PCP Family Medicine Geriatric Medicine; Visit Provider Emergency Medicine
DX: R00.1 Bradycardia, unspecified (principal); I48.20 Chronic atrial fibrillation, unspecified; E11.9 Type 2 diabetes mellitus without complications; Z79.4 Long term (current) use of insulin; I25.10 Atherosclerotic heart disease of native coronary artery without angina pectoris; I10 Essential (primary) hypertension; E78.5 Hyperlipidemia, unspecified; Z95.5 Presence of coronary angioplasty implant and graft; Z79.01 Long term (current) use of anticoagulants; Z79.02 Long term (current) use of antithrombotics/antiplatelets; Z79.84 Long term (current) use of oral hypoglycemic drugs; Z79.899 Other long term (current) drug therapy
CPT/HCPCS: 80048; 83735; 84484; 85025; 93005; 99285; A4216

== ENCOUNTER 2024-08-30 14:30 | Outpatient (RCR) | payer MEDICARE, SELFPAY ==
[2024-07-15 09:39] VITALS: BMI 34.9
[2024-08-03 00:11] VITALS: BP 118/60; BP 120/50
--- NOTE | 2024-08-17 07:23 | PCM.CR.ITP ---
Psychosocial - Initial Assess Target Goals Target Goals Nutrition Survey Nutrition Survey Instructions Scoring Instructions Exercise - 90-day Assessment Visit Date of Eval: 08/17/24 Session #:: 32 Comments:: Pt is on med hold. Pt had a holter monitor that showed 595 beat run of VT and a 6.3 second pause. Pt taken to ED and transferred to another facility for pacer. Psychosocial - 30-Day Assess Target Goals Target Goals Psychosocial - 60-Day Assess Target Goals Target Goals Psychosocial - 90-Day Assess Target Goals Target Goals Psychosocial - Final Assessmen Target Goals Target Goals
--- NOTE | 2024-08-30 13:23 | PCM.CR.ITP ---
Exercise - Initial Assessment Physician Prescribed Exercise Modalities: Treadmill, SciFit Stepper and SciFit Lateral [place] Nutrition - Initial Assessment Weight Mgt (Other Care) Height: 5 ft 9 in Weight:: 242 lb BMI: 35.7 Psychosocial - Initial Assess Target Goals Target Goals Referral to Behavioral Health PS - Interventions: Yes: Attend Stress Management Classes Patient Health Questionnaire PHQ-9 Screening 90-Day Re-eval Assessment: 1. Little interest or pleasure in doing things: Not at all 2. Feeling down, depressed, or hopeless: Not at all 3. Trouble falling or staying asleep, or sleeping too much: Not at all 4. Feeling tired or having little energy: More than half the days 5. Poor appetite or overeating: Not at all 6. Feeling bad about yourself -- or that you are a failure or have let yourself or your family down: Not at all 7. Trouble concentrating on things, such as reading the newspaper or watching television: More than half the days 8. Moving or speaking so slowly that other people could have noticed. Or the opposite - being so fidgety or restless that you have been moving around a lot more than usual: Not at all 9. Thoughts that you would be better off , or of hurting yourself in some way: Not at all How difficult have these problems made it for you to do your work, take care of things at home, or get along with other people?: Somewhat difficult Total Score: 4 Self-Efficacy 6-Item Scale 90-Day Re-eval Assessment: We would like to know how confident you are in doing certain activities. Please select your confidence level for: Fatigue Select Number: 3 Physical Discomfort or Pain Select Number: 3 Emotional Distress Select Number: 7 Other Symptoms or Health Problems Select Number: 3 Different Tasks and Activities Select Number: 6 Medication Select Number: 4 Total Score:: 4 Nutrition Survey Nutrition Survey Instructions Scoring Instructions Exercise - 30-day Assessment Physician Prescribed Exercise Modalities: Treadmill, SciFit Stepper and SciFit Lateral [employer] Exercise - 60-day Assessment Physician Prescribed Exercise Modalities: Treadmill, SciFit Stepper and SciFit Lateral [place] Exercise - 90-day Assessment Visit Date of Eval: 08/30/24 Session #:: 31 Comments:: Mele is returning to cardiac rehab today s/p pacemaker. 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 Outcomes & Goals Goals:: Verbalizes understanding of THR, RPE & goal METS by session 6, Documents in home exercise log/reports 30 min aerobic 5 day/wk by DC, Demonstrates accurate pulse taking by DC and Other additional outcome/goals: see below Intervention & Plan Exercise Program Goals: Instruct on personal THR & RPE, Instruct on MET level & personal MET goal, Show patient to take own pulse /validate performance until accurate, Instruct on home exercise and Other additional plan/int 30-day Reassessments 30 day Reassessments:: Met Reassessment Notes & Comments:: Pt has met his exercise goals Physical Activity Home Exercise Physical Activity - Home Exercise: Safe Exercise, Warm-up, Self-monitoring, Cool-Down, Home Exercise > 30 min Daily and Sitting Time <3 hours/daily Outcomes & Goals Outcomes/Goals: Demonstrates correct Warm-up/exercise Cool-Down (S3) if = 2.5 METs, Verbalizes symptoms of exercise intolerance by Session 3 (S3), Demonstrate safe equipment use (S3) & follows exercise prescrition (6) and Other: See below Intervention & Plan Plan/Intervention: Instruct warm-up & cool-down if exercising at > 2 METs, Instruct on symptoms of exercise intolerance & actions to take, Instruct & monitor on saf, Assess intial functional capacity & safety risk and Other See below 30-day Reassessments 30 day Reassessments:: Met Reassessment Notes & Comments:: safe exercise explained in class Exercise - Final/Discharge Physician Prescribed Exercise Modalities: Treadmill, SciFit Stepper and SciFit Lateral [place] Nutrition - 30-Day Assessment Weight Mgt (Other Care) Height: 5 ft 9 in Weight:: 242 lb BMI: 35.7 Nutrition - 60-Day Assessment Weight Mgt (Other Care) Height: 5 ft 9 in Weight:: 242 lb BMI: 35.7 Core - 30-Day Assessment Hypertension Citizen [place] [employer] Hypertension Guidelines Reassessment Notes & Comments:: low sodium diet encouraged Core - Final Assessment Hypertension Citizen [place] [employer] Hypertension Guidelines Reassessment Notes & Comments:: low sodium diet encouraged Core - 90 Day Assessment Visit Date of Eval: 08/30/24 Session #:: 31 Medication Compliance Preventative Medication(s):: LESLIE inhibitor, Clopidogrel/P2Y12 inhibit, Statin/lipid, Beta chata and Eliquis H/O mental health issues: depression, anxiety, or addiction?: No Doesn?t believe in the benefits of treatment?: No Believes medications are unnecessary or harmful?: No Has a concern about medication side effects?: No Expresses concern over the cost of medications?: No Outcomes/Goals: Verbalizes medications,desired effect & common side effects @ DC, Pt self-reports following medication regimen, Keeps card in wallet w/medications listed by DC and Other additional outcome/goals: Interventions/plans: Instruct on medication effects & side effects, Review medication list w/patient every two weeks, Instruct importance of taking meds as ordered & assist problem solving and Other additional 30-day Reassessments:: Met Tobacco Use Tobacco Use: Non-smoker Hypertension Hypertension Diagnosis:: Hypertension ICD-10 I10 Resting Blood Pressure:: 144/60 Citizen [place] [employer] Hypertension Guidelines Peak Exercise Blood Pressure:: 156/64 Outcomes/Goals: Able to verbalize/achieve optimal blood pressure <130/80, Incorporates diet changes & exercise for blood pressure control by DC and Other additional outcomes/goals Interventions/plan: Instruct on optimal blood pressure, hypertension & medications, Instruct on effects of sodium, alcohol, stress, exercise &hypertension and Other additional plan/interventions 30 day Reassessments:: Progressing Reassessment Notes & Comments:: low sodium diet encouraged Tobacco Cessation Referral Smoking Cessation Referral:: No Individual Education/Counseling:: No Education Schedule Given:: Yes Psychosocial - 30-Day Assess Target Goals Target Goals Referral to Behavioral Health PS - Interventions: Yes: Attend Stress Management Classes Psychosocial - 60-Day Assess Target Goals Target Goals Referral to Behavioral Health PS - Interventions: Yes: Attend Stress Management Classes Psychosocial - 90-Day Assess VIsit Date of Eval: 08/30/24 Session #:: 31 History of previous Mental disease:: No Target Goals Target Goals Psychosocial Test Tool Used:: [employer] QOL Cardiac and PHQ-9 Questionnaire phq-9 Severity Referral to Behavioral Health PS - Interventions: Yes: Attend Stress Management Classes Outcomes/Goals: See list Psychosocial Outcomes/Goals:: ID's personal stressors & 2 strategies to manage stress by discharge and Other Additional outcome/goals: Intervention/Plan: See List Interventions/Plan:: Assess stressors,coping strategies & signs of derpression on admission, Instruct/assist pt to develop coping & personal stress Mgt strategies, Refer to Behavioral Health if appropriate, Refer to Physician if appropriate, Instruct patient to recognize signs & symptoms of depression, Instruct patient to recog and Other additional plan/intervention 30-day Reassessments: 30 day Reassessments:: Met Reassessment Notes & Comments:: pt denies any psychosocial issues Psychosocial - Final Assessmen Target Goals Target Goals Referral to Behavioral Health PS - Interventions: Yes: Attend Stress Management Classes Nutrition - 90-Day Assessment Program Goals Nutrition Program Goals Patient has diagnosis of Hyperlipidemia (ICD E78)?: Yes Visit Date of Eval: 08/30/24 Session #:: 31 Cholesterol/Lipids (Other Core Measures) Determine presence & major risk factors that modify LDL goal: Hypertension or hypertensive medication, Low HDL cholesterol <40 mg/dL*, Family history of premature CHD in Male < 55 years: female <65 yearsFa and Age men > 45 years; women >/= 55 years Outcomes/Goals: Pt IDs own risk factors & lifestyle modifications by Session 10, Verbalizes symptoms of angina & response by session 3., Pt independently manages and Other Additional Outcomes/Goals: Intervention/Plan: Advocate for lipid panel cholesterol medication if applicable, Instruct on personal lipid levels & lipid goals/NCEP guidelines, Instruct on cholesterol and Other additional plan/int 30-day Reassessments:: Met Diabetes (Other Core Measures) Diabetes Type: Diagnosis Type II ICD-10 E11 Insulin dependent injection/pump?: Yes Non-Insulin Dependent?: Yes Do you monitor your blood sugar at home?: Yes Referral to Diabetic Clinic:: No 30-day Reassessments:: Progressing Reassessment Notes & Comments:: Pt's sugars were doing well with increased exercise and activity. Weight Mgt (Other Care) Height: 5 ft 9 in Weight:: 242 lb BMI: 35.7 Diagnosis Overweight/Obesity BMI> 30% ICD-10 E66: Yes Diagnosis High BMI/Morbid Obesity BMI> 35% ICD-10 Z68: Yes Outcomes/Goals: Pt sets, maintains & shows weight loss goal & trend during rehab and Other additional outcomes/goals 30 day Reassessments:: Progressing Reassessment Notes & Comments:: Pt encouraged to meet with kit assembler. Healthy Eating Habits Will attend diet classes:: Yes Outcomes/Goals:: Consume diet rich in vegs,fruits,whole grain/high fiber,fish,lean meat, Limit sat/trans fats,cholesterol & added salts & sugars and Other additional outcome/goals: 30-day Reassessments:: Met Reassessment Notes & Comments:: pt attended nutrition class. Nutrition - Final Assessment Weight Mgt (Other Care) Height: 5 ft 9 in Weight:: 242 lb BMI: 35.7
[2024-08-30 13:37] VITALS: BP 144/60; BMI 35.7
== END 2024-09-02 23:59 ==
LOC: CR 14:30
PROVIDERS: PCP Family Medicine Geriatric Medicine; Referring Provider Internal Medicine Cardiovascular Disease; Visit Provider Internal Medicine Cardiovascular Disease
DX: I25.10 Atherosclerotic heart disease of native coronary artery without angina pectoris (principal); R00.0 Tachycardia, unspecified; R07.9 Chest pain, unspecified; Z95.5 Presence of coronary angioplasty implant and graft
CPT/HCPCS: 93798

== ENCOUNTER → 2024-09-06 | Outpatient (CLI) | payer MEDICARE, SELFPAY ==
[2024-08-30 13:37] VITALS: BMI 35.7
[2024-09-06 11:33] LABS: Absolute Lymphocyte Count 1.09 X10^3/uL (0.83-4.51); Absolute Neutrophil Count 4.9 X10^3/uL (2.0-7.7); Basophil# 0.05 X10^3/uL; Basophil% 0.7 % (0-1); Eosinophils% 2.9 % (0-5); Hematocrit 35.1 % (40-54); Lymphocyte # 1.09 X10^3/ul (0.83-4.51); Lymphocyte % 15.8 % (19-41); Mean Corp Hgb Conc 34.2 g/dL (32-36); Mean Corpuscular Volume 90.7 fL (80-94); Mean Platelet Vol. 11.9 fl (6.2-12.0); Monocyte# 0.59 X10^3/uL; Monocyte% 8.6 % (0-10); NRBC Flagged by Analyzer 0 % (0-5); Neutrophil # 4.92 X10^3/uL (2.7-7.7); Neutrophil % 71.6 % (47-70); POSITIVE COUNT YES; RBC Distribution Width CV 15.2 % (11.6-14.6); RBC Distribution Width SD 50.3 fl (35.1-43.9); Red Blood Count 3.87 M/mm3 (4.6-6.2); White Blood Count 6.9 K/mm3 (4.4-11.0)
[2024-09-06 11:58] LABS: Vitamin D,25 Hydroxy 27.5 ng/mL
[2024-09-06 12:05] LABS: AST(SGOT) 12 U/L (15-37); Alanine Aminotransfer ALT/SGPT 18 U/L (16-61); Albumin, Serum 3.4 g/dL (3.2-5.0); Alkaline Phosphatase 128 U/L (45-117); Anion Gap 7 (5-15); BUN 22 mg/dL (7-18); BUN/Creat Ratio 17.5 RATIO (10-20); Calcium,Total 8.7 mg/dL (8.5-10.1); Chloride 105 mmol/L (98-107); Creatinine, Serum 1.26 mg/dL (0.70-1.30); EST Glomerular Filtration Rate 59 mL/min (>60); Est Glom Filt Rate - Afr Amer 71 mL/min (>60); Globulin 3.5 g/dL (2.2-4.2); Glucose 421 mg/dL (74-106); Potassium 4.4 mmol/L (3.5-5.1); Protein, Total 6.9 g/dL (6.4-8.2); Sodium Level 138 mmol/L (136-145)
[2024-09-06 12:09] LABS: Differential Comment SCANNED; Differential Indicated SCAN CRITERIA MET; Platelet Estimate ADEQUATE (ADEQ); Platelet Morphology CLUMPED; Red Cell Morphology NORM C+C NORMAL (NORM C&C)
== END | disposition home or self-care (01) ==
LOC: POLAB3 11:18
PROVIDERS: PCP Family Medicine Geriatric Medicine; Referring Provider Family Medicine Geriatric Medicine; Visit Provider Family Medicine Geriatric Medicine
DX: E11.65 Type 2 diabetes mellitus with hyperglycemia (principal); E55.9 Vitamin D deficiency, unspecified; R53.83 Other fatigue
CPT/HCPCS: 36415; 80053; 82306; 84443; 85025

== ENCOUNTER 2024-09-13 14:15 | Outpatient (RCR) | payer MEDICARE, SELFPAY ==
[2024-09-03 00:10] VITALS: BP 118/60; BP 120/50; BP 144/60
== END 2024-10-02 23:59 ==
LOC: CR 14:15
PROVIDERS: PCP Family Medicine Geriatric Medicine; Referring Provider Internal Medicine Cardiovascular Disease; Visit Provider Internal Medicine Cardiovascular Disease
DX: R00.0 Tachycardia, unspecified (principal); R07.9 Chest pain, unspecified; Z95.5 Presence of coronary angioplasty implant and graft; I25.10 Atherosclerotic heart disease of native coronary artery without angina pectoris
CPT/HCPCS: 93798

== ENCOUNTER 2024-10-05 06:28 | Outpatient (RCR) | payer SELFPAY | END 2024-11-02 23:59 | LOC: CR 06:28 | PROVIDERS: PCP Family Medicine Geriatric Medicine; Referring Provider Family Medicine Geriatric Medicine; Visit Provider Family Medicine Geriatric Medicine | DX: Z00.00 Encounter for general adult medical examination without abnormal findings (principal) ==

== ENCOUNTER 2024-11-04 06:01 | Outpatient (RCR) | payer SELFPAY | END 2024-12-03 23:59 | LOC: CR 06:01 | PROVIDERS: PCP Family Medicine Geriatric Medicine; Referring Provider Family Medicine Geriatric Medicine; Visit Provider Family Medicine Geriatric Medicine | DX: Z00.00 Encounter for general adult medical examination without abnormal findings (principal) ==

== ENCOUNTER → 2024-12-07 | Outpatient (CLI) | payer MEDICARE, SELFPAY ==
[2024-12-07 11:37] LABS: Absolute Lymphocyte Count 2.13 X10^3/uL (0.83-4.51); Absolute Neutrophil Count 4.4 X10^3/uL (2.0-7.7); Basophil# 0.06 X10^3/uL; Basophil% 0.8 % (0-1); Eosinophil# 0.18 X10^3/uL; Eosinophils% 2.4 % (0-5); Hematocrit 40.9 % (40-54); Hemoglobin 13.7 g/dL (13.0-16.5); Lymphocyte # 2.13 X10^3/ul (0.83-4.51); Lymphocyte % 27.9 % (19-41); Mean Corp Hgb Conc 33.5 g/dL (32-36); Mean Corpuscular Hgb 30.1 pg (27.0-32.0); Mean Corpuscular Volume 89.9 fL (80-94); Mean Platelet Vol. 10.9 fl (6.2-12.0); Monocyte# 0.79 X10^3/uL; Monocyte% 10.4 % (0-10); NRBC Flagged by Analyzer 0 % (0-5); Neutrophil # 4.43 X10^3/uL (2.7-7.7); Platelet Count 172 K/mm3 (150-450); RBC Distribution Width CV 14.4 % (11.6-14.6); RBC Distribution Width SD 46.5 fl (35.1-43.9); Red Blood Count 4.55 M/mm3 (4.6-6.2); White Blood Count 7.6 K/mm3 (4.4-11.0)
[2024-12-07 12:14] LABS: AST(SGOT) 25 U/L (15-37); Alanine Aminotransfer ALT/SGPT 21 U/L (16-61); Albumin, Serum 3.9 g/dL (3.2-5.0); Alkaline Phosphatase 133 U/L (45-117); Anion Gap 9 (5-15); BUN 23 mg/dL (7-18); BUN/Creat Ratio 18.3 RATIO (10-20); Calcium,Total 9.6 mg/dL (8.5-10.1); Chloride 104 mmol/L (98-107); Creatinine, Serum 1.26 mg/dL (0.70-1.30); EST Glomerular Filtration Rate 59 mL/min (>60); Est Glom Filt Rate - Afr Amer 71 mL/min (>60); Globulin 3.8 g/dL (2.2-4.2); Glucose 117 mg/dL (74-106); Protein, Total 7.7 g/dL (6.4-8.2); Sodium Level 138 mmol/L (136-145)
== END | disposition home or self-care (01) ==
LOC: POLAB3 10:50
PROVIDERS: PCP Family Medicine Geriatric Medicine; Visit Provider Family Medicine Geriatric Medicine
DX: E11.65 Type 2 diabetes mellitus with hyperglycemia (principal); E55.9 Vitamin D deficiency, unspecified; R53.83 Other fatigue
CPT/HCPCS: 36415; 80053; 82306; 84443; 85025

== ENCOUNTER 2025-01-06 12:12 | Emergency (ER) | payer MEDICARE, SELFPAY ==
[2025-01-06] VITALS (16 sets, daily range): BP systolic 99–129; BP diastolic 56–84; PULSE 69–186; RESP 16–27; TEMP 35.7–36.6; O2SAT 94–100; BMI 37.0
--- NOTE | 2025-01-06 12:29 | RAD_ITS ---
PROCEDURE: CHEST 1 VIEW (PORTABLE) REASON FOR EXAM: Dyspnea. TECHNIQUE: Frontal view of the chest. COMPARISON: Chest x-ray of 05/07/2024 RAD/Chest 1 View (Portable) IMPRESSION: Interval placement of a left thoracic transvenous pacemaker is seen. Lungs are hypoinflated, but no acute pneumonic process is appreciated. No pleural effusion or pneumothorax is noted. The cardiomediastinal silhouette is stable. Reading Location: [id number]
[2025-01-06] MEDS: Etomidate 20 MG/10 ML Vial 16 MG IV (12:35)
[2025-01-06] MEDS: fentaNYL 100 MCG/2 ML Ampul 25 MCG IV (12:35)
[2025-01-06 13:01] LABS: Absolute Lymphocyte Count 1.88 X10^3/uL (0.83-4.51); Basophil# 0.07 X10^3/uL; Basophil% 0.6 % (0-1); Eosinophil# 0.09 X10^3/uL; Eosinophils% 0.7 % (0-5); Hematocrit 39.1 % (40-54); Lymphocyte # 1.88 X10^3/ul (0.83-4.51); Lymphocyte % 15.6 % (19-41); Mean Corp Hgb Conc 33.2 g/dL (32-36); Mean Corpuscular Hgb 30.3 pg (27.0-32.0); Mean Corpuscular Volume 91.1 fL (80-94); Monocyte# 0.88 X10^3/uL; Monocyte% 7.3 % (0-10); NRBC Flagged by Analyzer 0 % (0-5); Neutrophil # 9.04 X10^3/uL (2.7-7.7); Neutrophil % 75.2 % (47-70); Platelet Count 194 K/mm3 (150-450); RBC Distribution Width CV 15.1 % (11.6-14.6); Red Blood Count 4.29 M/mm3 (4.6-6.2)
--- NOTE | 2025-01-06 13:10 | EX.ED.DYSGE1 ---
HPI History of Present Illness Chief Complaint: Palpitations Informant: patient and family Narrative Narrative: 79-year-old male presenting to the emergency room with chief complaint of chest pressure dyspnea and palpitations. Patient states that yesterday afternoon he went to the store and upon returning home noted that he felt more short of breath more fatigue and that his heart was racing. He has a history of sick sinus syndrome as well as chronic persistent atrial fibrillation. 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 He has seen Dr. Staton at [facility]. He saw Dr. Ceja from cardiology last fall. Patient's is on Eliquis and states that he is very voodoo about taking his medicine. Family notes that his color seems more pale. They note that while his legs do have some edema and that they do not appear different than normal. [facility] Medical History High degree atrioventricular block Persistent atrial fibrillation Sick sinus syndrome Pacemaker (08/17/24) CAD (coronary artery disease) Atrial fibrillation Neck pain Segmental and somatic dysfunction of cervical region Degenerative disc disease, cervical HARRISON (dyspnea on exertion) Dyslipidemia Aortic stenosis Iron deficiency BPH (benign prostatic hyperplasia) History of carotid artery stenosis Type 2 diabetes mellitus Hypothyroidism Hyperlipidemia Hypertension Diabetes WILSON (iron deficiency anemia) History of kidney stones Atrial fibrillation History of migraine Seasonal allergies Home Medications ?Medication ?Instructions ?Recorded ?Last Taken ?Type atorvastatin 40 mg tablet 40 mg PO DAILY cholesterol 10/22/19 05/06/24 History lisinopril 2.5 mg tablet 2.5 mg PO DAILY blood pressure 07/22/22 05/06/24 History polysaccharide iron complex 150 mg 150 mg PO DAILY supplement 10/09/23 05/06/24 History iron capsule (Ferrex) bumetanide 2 mg tablet 2 mg PO DAILY water pill 11/25/23 05/06/24 History levothyroxine 125 mcg tablet 150 mcg PO DAILY thyroid 11/25/23 Unknown History apixaban 5 mg tablet (Eliquis) 5 mg PO BID blood thinner 03/16/24 05/06/24 History metoprolol tartrate 25 mg tablet 25 mg PO BID heart rate 04/20/24 05/06/24 History clopidogrel 75 mg tablet 75 mg PO DAILY #30 tabs 04/28/24 05/06/24 Rx mecobalamin (vitamin B12) 1,000 1,000 mcg PO DAILY 05/07/24 05/06/24 History mcg chewable tablet metformin 1,000 mg tablet 1,000 mg PO BID 05/07/24 05/06/24 History potassium chloride 20 mEq 20 meq PO BID 05/07/24 05/06/24 History tablet,extended release(part/cryst) (Klor-Con M) insulin degludec 200 unit/mL (3 40 unit subcut BID diabetes 10/06/24 Unknown History mL) subcutaneous pen (Tresiba FlexTouch U-200 insulin) melatonin 5 mg capsule 10 mg PO DAILY sleep 10/06/24 Unknown History Allergy/AdvReac Type Severity Reaction Status Date / Time alcohol AdvReac LIVER Verified 01/06/25 12:15 ISSUES Sulfa (Sulfonamide AdvReac Other Verified 01/06/25 12:15 Antibiotics) Family History Mother Cancer Father Myocardial infarction Surgical History Hx of cardiac catheterization (~04/28/24) Stented coronary artery (~04/28/24) Hx of bilateral cataract extraction History of transurethral resection of prostate History of urethral stent History of hip replacement History of knee surgery History of bilateral total hip arthroplasty Social History household members: none Smoking Status: Never smoker alcohol intake: former year quit: 1983 substance use type: does not use caffeine: No ROS ROS ED Constitutional Constitutional ED: Denies chills or weight loss Eyes Eyes: Denies change in vision or diplopia ENT ENT ED: Denies ear pain, rhinorrhea or sore throat Cardiovascular Cardiovascular: Reports chest pain and racing heartbeat; Denies orthopnea or palpitations Respiratory/Chest Respiratory/Chest: Reports dyspnea and dyspnea on exertion; Denies cough or orthopnea Gastrointestinal Gastrointestinal: Reports diarrhea; Denies abdominal pain, nausea or vomiting Genitourinary Genitourinary ED: Denies dysuria, hematuria or urinary frequency Musculoskeletal Musculoskeletal: Denies arthralgias or myalgias Integumentary Denies abscess or rash Neurologic Neurologic: Denies headache(s) or weakness Psychiatric Psychiatric: Denies anxiety, depression, suicidal ideation or suicidal thoughts Endocrine Endocrinology: Denies polydipsia, polyphagia or polyuria Allergic/Immunologic Allergic/Immunologic ED: Denies mouth swelling, tongue swelling or urticaria EXAM Physical Exam Const Vital Signs: 01/06/25 12:15 01/06/25 12:16 01/06/25 12:17 Temperature 96.3 F L Temperature Source Temporal Pulse Rate 186 H Pulse Rate [1 (Initial Baseline)] Pulse Rate [2] Respiratory Rate 22 H Respiratory Rate [1 (Initial Baseline)] Respiratory Rate [2] Respiratory Effort Short of Breath Short of Breath Respiratory Pattern Tachypnea Blood Pressure 99/73 Blood Pressure [1 (Initial Baseline)] Blood Pressure [2] Blood Pressure Mean 81 Baseline BP Pulse Ox 95 Oxygen Delivery Method Room Air Oxygen Delivery Method [1 (Initial Baseline)] Oxygen Delivery Method [2] Oxygen Flow Rate (L/min) Oxygen Flow Rate (L/min) [2] EtCo2 (Normal 35-45 , high quality CPR 10-20 & ROSC>/=40mmHg EtCo2 (Normal 35-45 , high quality CPR 10-20 & ROSC>/=40mmHg [1 (Initial Baseline)] EtCo2 (Normal 35-45 , high quality CPR 10-20 & ROSC>/=40mmHg [2] 01/06/25 12:22 01/06/25 12:49 01/06/25 12:49 Temperature Temperature Source Pulse Rate 184 H Pulse Rate [1 (Initial Baseline)] Pulse Rate [2] Respiratory Rate 27 H Respiratory Rate [1 (Initial Baseline)] Respiratory Rate [2] Respiratory Effort Respiratory Pattern Blood Pressure 117/73 Blood Pressure [1 (Initial Baseline)] Blood Pressure [2] Blood Pressure Mean 87 Baseline BP Pulse Ox 98 100 Oxygen Delivery Method Room Air Room Air Oxygen Delivery Method [1 (Initial Baseline)] Oxygen Delivery Method [2] Oxygen Flow Rate (L/min) Oxygen Flow Rate (L/min) [2] EtCo2 (Normal 35-45 , high quality CPR 10-20 & ROSC>/=40mmHg 32 EtCo2 (Normal 35-45 , high quality CPR 10-20 & ROSC>/=40mmHg [1 (Initial Baseline)] EtCo2 (Normal 35-45 , high quality CPR 10-20 & ROSC>/=40mmHg [2] 01/06/25 12:54 01/06/25 12:58 03/06/25 13:05 Temperature Temperature Source Pulse Rate 185 H 69 Pulse Rate [1 (Initial Baseline)] 184 H Pulse Rate [2] 72 Respiratory Rate 23 H 20 H Respiratory Rate [1 (Initial Baseline)] 24 H Respiratory Rate [2] 24 H Respiratory Effort Respiratory Pattern Blood Pressure 99/84 H 129/65 H Blood Pressure [1 (Initial Baseline)] 101/79 Blood Pressure [2] 125/67 H Blood Pressure Mean Baseline BP 99/84 Pulse Ox 98 95 Oxygen Delivery Method Nasal Cannula Oxygen Delivery Method [1 (Initial Baseline)] Nasal Cannula Oxygen Delivery Method [2] Nasal Cannula Oxygen Flow Rate (L/min) 2 Oxygen Flow Rate (L/min) [2] 4 EtCo2 (Normal 35-45 , high quality CPR 10-20 & ROSC>/=40mmHg 23 27 EtCo2 (Normal 35-45 , high quality CPR 10-20 & ROSC>/=40mmHg [1 (Initial Baseline)] 24 EtCo2 (Normal 35-45 , high quality CPR 10-20 & ROSC>/=40mmHg [2] 26 01/06/25 13:10 01/06/25 13:15 01/06/25 13:40 Temperature Temperature Source Pulse Rate 72 89 77 Pulse Rate [1 (Initial Baseline)] Pulse Rate [2] Respiratory Rate 22 H 16 16 Respiratory Rate [1 (Initial Baseline)] Respiratory Rate [2] Respiratory Effort Respiratory Pattern Blood Pressure 107/61 109/62 114/66 Blood Pressure [1 (Initial Baseline)] Blood Pressure [2] Blood Pressure Mean 82 Baseline BP Pulse Ox 95 98 96 Oxygen Delivery Method Nasal Cannula Room Air Room Air Oxygen Delivery Method [1 (Initial Baseline)] Oxygen Delivery Method [2] Oxygen Flow Rate (L/min) 2 Oxygen Flow Rate (L/min) [2] EtCo2 (Normal 35-45 , high quality CPR 10-20 & ROSC>/=40mmHg 27 28 EtCo2 (Normal 35-45 , high quality CPR 10-20 & ROSC>/=40mmHg [1 (Initial Baseline)] EtCo2 (Normal 35-45 , high quality CPR 10-20 & ROSC>/=40mmHg [2] 01/06/25 14:00 01/06/25 15:00 Temperature Temperature Source Pulse Rate 70 128 H Pulse Rate [1 (Initial Baseline)] Pulse Rate [2] Respiratory Rate 19 H 23 H Respiratory Rate [1 (Initial Baseline)] Respiratory Rate [2] Respiratory Effort Respiratory Pattern Blood Pressure 116/63 109/56 L Blood Pressure [1 (Initial Baseline)] Blood Pressure [2] Blood Pressure Mean 79 71 Baseline BP Pulse Ox 95 94 Oxygen Delivery Method Oxygen Delivery Method [1 (Initial Baseline)] Oxygen Delivery Method [2] Oxygen Flow Rate (L/min) Oxygen Flow Rate (L/min) [2] EtCo2 (Normal 35-45 , high quality CPR 10-20 & ROSC>/=40mmHg EtCo2 (Normal 35-45 , high quality CPR 10-20 & ROSC>/=40mmHg [1 (Initial Baseline)] EtCo2 (Normal 35-45 , high quality CPR 10-20 & ROSC>/=40mmHg [2] Positive well nourished, well developed and obese General Appearance ED: well developed and NAD Nutritional Appearance: obese HEENT Reports normocephalic, head/scalp atraumatic and moist mucous membranes Eyes PERRL and EOMs intact bilaterally Neck no lymphadenopathy, supple and no JVD Resp normal respiratory effort and clear to auscultation bilaterally Cardio regular rate and regular rhythm Cardio Narrative: 2 out of 6 systolic murmur Rate: tachycardic GI normal to inspection, nondistended, normoactive bowel sounds and non-tender Palpation: soft Back/Spine no CVA tenderness and normal ROM Extremity General Extremety ED: Yes edema General Extremity: edema bilateral lower extremity (Right greater than left) Details: moderate Neuro oriented x3 and CN's II-XII intact bilaterally Sensorium / Orientation: alert Motor Exam: strength 5/5 throughout Psych mental status grossly normal Mood & Affect: Negative for depressed or tearful Skin no rashes or lesions noted and no wounds MDM MDM MDM Narrative Medical decision making narrative: Differential diagnosis includes but not limited to cardiac dysrhythmia electrolyte abnormalities pulmonary embolism congestive heart failure Patient's EKG shows a wide-complex tachycardia with a rate of 186 bpm. Monitor does not seem to waver from this rate. I reviewed the patient's prior cardiology visit. He confirms that he has been compliant with his Eliquis. Given the wide-complex tachycardia the rate on the monitor and how poorly he feels I do think cardioversion is the best option. Patient provided informed written consent for sedation for synchronized cardioversion. Patient was given 25 mcg of fentanyl as well as 16 mg of etomidate. Once adequate sedation was achieved a 200 J synchronized shock was delivered which resulted in return to a atrial fibrillation rhythm narrow complex with PVCs. Ventricular rate of 91 bpm. Patient's white count returns at 12.0 hemoglobin of 13 platelet count of 194. INR 1.4 PTT 36.5. Troponin elevated 142 BNP 8116 creatinine 1.36 BUN of 27 anion gap is 18 CO2 19.8. Glucose 316. My independent interpretation of the chest x-ray is no obvious pulmonary edema or pleural effusion. Second troponin is 154. I think the troponins are probably elevated given the rate of the heart and the underlying coronary artery disease rather than primary ACS. Patient's color improved as did his systolic blood pressure. He has been resting much more comfortably. I spoke with his local office services associate Dr. Ceja would like to see if we could transfer him to [facility] For EP evaluation. I reached out to [facility]. They have accepted the patient. We are currently awaiting bed assignment. Care of the patient will be turned over to the evening physician if needed for further management. Currently the patient appears significantly better. Blood pressures improved his coloring is better he is no longer diaphoretic and his chest pressure has resolved. History & Record Review Discussion w/independent historian: Patient and Family Lab Data Attestation: I reviewed the patient's lab results. Labs: Laboratory Results - last 24 hr 01/06/25 01/06/25 12:20 14:08 WBC 12.0 H RBC 4.29 L Hgb 13.0 Hct 39.1 L MCV 91.1 MCH 30.3 MCHC 33.2 RDW Std Deviation 50.0 H RDW Coeff of Cooper 15.1 H Plt Count 194 MPV 11.0 Immature Gran % (Auto) 0.600 Neut % (Auto) 75.2 H Lymph % (Auto) 15.6 L Tama % (Auto) 7.3 Eos % (Auto) 0.7 Baso % (Auto) 0.6 Absolute Neuts (auto) 9.0 H Absolute Lymphs (auto) 1.88 Nucleated RBC % 0 PT 17.1 H INR 1.4 APTT 36.5 H Sodium 138 Potassium 4.3 Chloride 101 Carbon Dioxide 19.8 L Anion Gap 18 H BUN 27 H Creatinine 1.36 H Estim Creat Clear Calc 56.53 Est GFR (MDRD) Non-Af 54 L BUN/Creatinine Ratio 19.6 Glucose 319 H Calcium 9.5 Magnesium 1.9 Total Bilirubin 0.71 Direct Bilirubin 0.35 H AST 55 H ALT 25 Alkaline Phosphatase 142 H Troponin T High Sens 142 H* Troponin T Hi Sens 2 Hr 154 H* NT pro BNP II 8116 H Total Protein 7.4 Albumin 4.3 Globulin 3.1 Radiography Diagnostic Testing: Clinical Impression(s) from Imaging Studies Chest X-Ray 01/06/25 12:29 IMPRESSION: Interval placement of a left thoracic transvenous pacemaker is seen. Lungs are hypoinflated, but no acute pneumonic process is appreciated. No pleural effusion or pneumothorax is noted. The cardiomediastinal silhouette is stable. Reading Location: [id number] Management Discussion w/another healthcare provider: Event Coordinator (Dr Ceja ([facility] Cardiology) / [facility]) Procedures Procedural Sedation 1 (Initial Baseline): Consent Signed: Yes Any Problems With Anesthesia: No You/Your family experience fever (hyperthermia) w/anesthesia: No Sedation medication: Etomidate Dose: 16 Route: IV Total Moderate Sedation Units: 3 Maliampati Score: Class III ASA Classification: II Discharge Plan Triage Chief Complaint: Palpitations ED Provider: Segun Houser Dx/Rx/DC Orders Clinical Impression: Atrial fibrillation, Chronic anticoagulation, Wide-complex tachycardia, Chest pain Prescriptions: No Action lisinopril 2.5 mg tablet 2.5 mg PO DAILY polysaccharide iron complex [Ferrex 150] 150 mg iron capsule 150 mg PO DAILY levothyroxine 125 mcg tablet 150 mcg PO DAILY melatonin 5 mg capsule 10 mg PO DAILY bumetanide 2 mg tablet 2 mg PO DAILY Eliquis 5 mg tablet 5 mg PO BID metoprolol tartrate 25 mg tablet 25 mg PO BID insulin degludec [Tresiba FlexTouch U-200] 200 unit/mL (3 mL) insulin pen 40 unit subcut BID atorvastatin 40 MG tablet 40 mg PO DAILY metformin 1,000 mg tablet 1,000 mg PO BID potassium chloride [Klor-Con M20] 20 mEq tablet,ER particles/crystals 20 meq PO BID mecobalamin (vitamin B12) 1,000 mcg tablet,chewable 1,000 mcg PO DAILY clopidogrel 75 mg Tablet 75 mg PO DAILY Qty: 30 11RF Primary Care Provider: Ivan Pinzon Chi Referrals: Ivan Pinzon Chi, MD [Primary Care Provider] - Print Language: Lithuanian
[2025-01-06 13:15] LABS: International Normalized Ratio 1.4; Prothrombin Time (Protime)PT. 17.1 SECONDS (11.7-14.9)
[2025-01-06 13:16] LABS: Partial Thromboplast Time 36.5 Seconds (24.1-36.2)
[2025-01-06 13:33] LABS: AST(SGOT) 55 U/L (<=37); Alanine Aminotransfer ALT/SGPT 25 U/L (<=46); Albumin, Serum 4.3 g/dL (3.4-4.8); Alkaline Phosphatase 142 U/L (40-129); Anion Gap 18 (5-15); BUN 27 mg/dL (4-19); BUN/Creat Ratio 19.6 RATIO (10-20); Bilirubin, Direct 0.35 mg/dL (0.00-0.30); Calcium,Total 9.5 mg/dL (7.6-11.0); Carbon Dioxide 19.8 mmol/L (21.0-32.0); Chloride 101 mmol/L (98-108); Creatinine, Serum 1.36 mg/dL (0.70-1.20); EST Glomerular Filtration Rate 54 (>60); Estimated Creatinine Clearance 56.53 ml/min (50-250); Globulin 3.1 g/dL (2.2-4.2); Glucose 319 mg/dL (70-99); Magnesium 1.9 mg/dL (1.5-2.2); Potassium 4.3 mmol/L (3.3-5.1); Pro- Brain NATRIURETIC PEPTIDE 8116 pg/mL (<=1800); Protein, Total 7.4 g/dL (5.9-8.4); Sodium Level 138 mmol/L (133-145); Total Bilirubin 0.71 mg/dL (0.00-1.30)
[2025-01-06 13:52] LABS: Troponin T High Sensitivity 142 ng/L (<=22)
[2025-01-06 14:39] LABS: Troponin T High Sens 2 HR 154 ng/L (<=22)
--- NOTE | 2025-01-06 15:15 | ED.RN ---
ACCEPTED AT [facility] @ [id number] JUST WAITING FOR A BED ASSIGNMENT
--- NOTE | 2025-01-06 16:42 | ED.RN ---
CALLED [facility]YSICIANS FOR TRANSPORT @ 1550. THEY GAVE ME AN ETA OF 60 MINS. THEY JUST CALLED BACK @ 1636 AND SAID IT WOULD BE 45 MINS TO 60 MINS BEFORE THE [facility] ARRIVED.
== END 2025-01-06 18:20 | disposition short-term general hospital (02) ==
PROVIDERS: Emergency Provider Emergency Medicine; PCP Family Medicine Geriatric Medicine; Referring Provider Emergency Medicine; Visit Provider Emergency Medicine
DX: I48.19 Other persistent atrial fibrillation (principal); I47.29 Other ventricular tachycardia; I49.5 Sick sinus syndrome; E11.9 Type 2 diabetes mellitus without complications; Z79.4 Long term (current) use of insulin; I25.10 Atherosclerotic heart disease of native coronary artery without angina pectoris; I10 Essential (primary) hypertension; E78.5 Hyperlipidemia, unspecified; R06.09 Other forms of dyspnea; Z95.0 Presence of cardiac pacemaker; Z95.5 Presence of coronary angioplasty implant and graft; Z79.01 Long term (current) use of anticoagulants; Z79.02 Long term (current) use of antithrombotics/antiplatelets; Z79.84 Long term (current) use of oral hypoglycemic drugs; Z79.899 Other long term (current) drug therapy
CPT/HCPCS: 71045; 80048; 80076; 83735; 83880; 84484; 85025; 85610; 85730; 92960; 93005; 99285; A4216

== ENCOUNTER → 2025-01-17 | Outpatient (CLI) | payer MEDICARE, SELFPAY ==
[2025-01-17 15:37] LABS: Anion Gap 17 (5-15); BUN 52 mg/dL (4-19); BUN/Creat Ratio 32.2 RATIO (10-20); Calcium,Total 9.6 mg/dL (7.6-11.0); Carbon Dioxide 19.5 mmol/L (21.0-32.0); Chloride 101 mmol/L (98-108); Creatinine, Serum 1.61 mg/dL (0.70-1.20); EST Glomerular Filtration Rate 44 (>60); Glucose 183 mg/dL (70-99); Potassium 4.7 mmol/L (3.3-5.1); Sodium Level 138 mmol/L (133-145)
== END | disposition home or self-care (01) ==
PROVIDERS: PCP Family Medicine Geriatric Medicine; Visit Provider Family Medicine Geriatric Medicine
DX: E87.6 Hypokalemia (principal)
CPT/HCPCS: 36415; 80048

== ENCOUNTER → 2025-02-09 | Outpatient (CLI) | payer MEDICARE, SELFPAY ==
[2025-02-09 16:46] LABS: Hematocrit 33.3 % (40-54); Hemoglobin 11.3 g/dL (13.0-16.5); Mean Corp Hgb Conc 33.9 g/dL (32-36); Mean Corpuscular Hgb 31.1 pg (27.0-32.0); Mean Corpuscular Volume 91.7 fL (80-94); Mean Platelet Vol. 10.8 fl (6.2-12.0); Platelet Count 171 K/mm3 (150-450); RBC Distribution Width CV 15.3 % (11.6-14.6); RBC Distribution Width SD 50.4 fl (35.1-43.9); Red Blood Count 3.63 M/mm3 (4.6-6.2); White Blood Count 7.6 K/mm3 (4.4-11.0)
[2025-02-09 17:19] LABS: Anion Gap 13 (5-15); BUN 24 mg/dL (4-19); BUN/Creat Ratio 17.8 RATIO (10-20); Calcium,Total 9.4 mg/dL (7.6-11.0); Carbon Dioxide 24.1 mmol/L (21.0-32.0); Chloride 103 mmol/L (98-108); Creatinine, Serum 1.37 mg/dL (0.70-1.20); EST Glomerular Filtration Rate 53 (>60); Glucose 116 mg/dL (70-99); Potassium 4.3 mmol/L (3.3-5.1); Pro- Brain NATRIURETIC PEPTIDE 1312 pg/mL (<=1800); Sodium Level 140 mmol/L (133-145)
== END | disposition home or self-care (01) ==
LOC: LAB 14:58
PROVIDERS: PCP Family Medicine Geriatric Medicine
DX: R06.09 Other forms of dyspnea (principal); I35.0 Nonrheumatic aortic (valve) stenosis; I25.10 Atherosclerotic heart disease of native coronary artery without angina pectoris
CPT/HCPCS: 36415; 80048; 83880; 85027

== ENCOUNTER → 2025-02-24 | Outpatient (CLI) | payer MEDICARE, SELFPAY ==
[2025-02-24 11:02] LABS: Absolute Lymphocyte Count 1.39 X10^3/uL (0.83-4.51); Basophil# 0.05 X10^3/uL; Basophil% 0.8 % (0-1); Eosinophils% 3.2 % (0-5); Hemoglobin 11.2 g/dL (13.0-16.5); Lymphocyte # 1.39 X10^3/ul (0.83-4.51); Lymphocyte % 22.2 % (19-41); Mean Corp Hgb Conc 33.9 g/dL (32-36); Mean Corpuscular Hgb 30.9 pg (27.0-32.0); Mean Corpuscular Volume 90.9 fL (80-94); Monocyte# 0.62 X10^3/uL; Monocyte% 9.9 % (0-10); NRBC Flagged by Analyzer 0 % (0-5); Neutrophil # 3.97 X10^3/uL (2.7-7.7); Neutrophil % 63.4 % (47-70); Platelet Count 158 K/mm3 (150-450); RBC Distribution Width CV 15.4 % (11.6-14.6); RBC Distribution Width SD 51.4 fl (35.1-43.9); Red Blood Count 3.63 M/mm3 (4.6-6.2); White Blood Count 6.3 K/mm3 (4.4-11.0)
[2025-02-24 11:49] LABS: ALB/GLOB Ratio 1.4 RATIO (0.9-2.4); AST(SGOT) 20 U/L (<=37); Alanine Aminotransfer ALT/SGPT 10 U/L (<=46); Alkaline Phosphatase 124 U/L (40-129); Anion Gap 13 (5-15); BUN 32 mg/dL (4-19); BUN/Creat Ratio 23.5 RATIO (10-20); Calcium,Total 9.1 mg/dL (7.6-11.0); Carbon Dioxide 24.7 mmol/L (21.0-32.0); Chloride 100 mmol/L (98-108); Creatinine, Serum 1.35 mg/dL (0.70-1.20); EST Glomerular Filtration Rate 54 (>60); Globulin 2.9 g/dL (2.2-4.2); Glucose 200 mg/dL (70-99); Potassium 4.6 mmol/L (3.3-5.1); Pro- Brain NATRIURETIC PEPTIDE 1335 pg/mL (<=1800); Protein, Total 6.9 g/dL (5.9-8.4); Sodium Level 138 mmol/L (133-145); Total Bilirubin 0.92 mg/dL (0.00-1.30)
== END | disposition home or self-care (01) ==
LOC: LAB 10:22
PROVIDERS: PCP Family Medicine Geriatric Medicine; Referring Provider Family Medicine Geriatric Medicine; Visit Provider Family Medicine Geriatric Medicine
DX: I50.30 Unspecified diastolic (congestive) heart failure (principal)
CPT/HCPCS: 36415; 80053; 83880; 85025

== ENCOUNTER → 2025-03-01 | Outpatient (CLI) | payer MEDICARE, SELFPAY ==
[2025-03-01 12:23] LABS: AST(SGOT) 21 U/L (<=37); Alanine Aminotransfer ALT/SGPT 9 U/L (<=46); Alkaline Phosphatase 124 U/L (40-129); Bilirubin, Direct 0.26 mg/dL (0.00-0.30); Cholesterol 101 mg/dL (<=200); Globulin 2.9 g/dL (2.2-4.2); High Density Lipoprotein 32 mg/dL; Low Density Lipoprotein Calc. 40 mg/dL; Protein, Total 6.9 g/dL (5.9-8.4); Total Bilirubin 0.66 mg/dL (0.00-1.30); Triglycerides 143 mg/dL; Very Low Density Lipoprotein 29 mg/dL (5-40); cholesterol:hdl ratio screen 3.15
== END | disposition home or self-care (01) ==
PROVIDERS: Student in an Organized Health Care Education/Training Program; PCP Family Medicine Geriatric Medicine; Referring Provider Internal Medicine Medical Oncology; Visit Provider Internal Medicine Medical Oncology
DX: I25.10 Atherosclerotic heart disease of native coronary artery without angina pectoris (principal); E78.5 Hyperlipidemia, unspecified
CPT/HCPCS: 36415; 80061; 80076

== ENCOUNTER → 2025-03-02 | Outpatient (CLI) | payer MEDICARE, SELFPAY ==
--- NOTE | 2025-03-02 07:27 | US_ITS ---
PROCEDURE: ABDOMEN LIMITED (USABDL), 03/02/2025 REASON FOR EXAM: CHOLELITHIASIS COMPARISON: None FINDINGS: Liver: Markedly echogenic. 21.9 cm in length. 1.3 x 1.6 x 1.1 cm cyst. Gallbladder: Cholelithiasis. No wall thickening or pericholecystic fluid. Reportedly, sonographic Bullock's was negative. Biliary tree: Top-normal caliber of the main pancreatic duct at 4 mm. CBD measures 5 mm. Pancreas: Partially obscured by shadowing bowel gas, grossly unremarkable as visualized. Right kidney: Unremarkable. 10.9 cm in length. Other: No visualized free fluid. US/Abdomen Limited IMPRESSION: 1. Cholelithiasis without findings to suggest cholecystitis. No biliary dilatat ion. 2. Hepatomegaly and appearance of the hepatic parenchyma most commonly suggesti ve of hepatic steatosis. Correlate with clinical and laboratory evaluation. 3. Additional description as above. Reading Location: [id number]
== END | disposition home or self-care (01) ==
LOC: US 07:27
PROVIDERS: PCP Family Medicine Geriatric Medicine; Referring Provider Family Medicine Geriatric Medicine; Visit Provider Family Medicine Geriatric Medicine
DX: K80.20 Calculus of gallbladder without cholecystitis without obstruction (principal); D18.03 Hemangioma of intra-abdominal structures
CPT/HCPCS: 76705

== ENCOUNTER → 2025-03-07 | Outpatient (CLI) | payer MEDICARE, SELFPAY ==
[2025-03-07 15:41] LABS: Absolute Lymphocyte Count 1.39 X10^3/uL (0.83-4.51); Absolute Neutrophil Count 4.1 X10^3/uL (2.0-7.7); Basophil# 0.07 X10^3/uL; Basophil% 1.1 % (0-1); Eosinophil# 0.18 X10^3/uL; Eosinophils% 2.8 % (0-5); Hematocrit 32.6 % (40-54); Hemoglobin 11.1 g/dL (13.0-16.5); Lymphocyte # 1.39 X10^3/ul (0.83-4.51); Lymphocyte % 21.5 % (19-41); Mean Corpuscular Hgb 30.8 pg (27.0-32.0); Mean Corpuscular Volume 90.6 fL (80-94); Mean Platelet Vol. 10.5 fl (6.2-12.0); Monocyte# 0.66 X10^3/uL; Monocyte% 10.2 % (0-10); NRBC Flagged by Analyzer 0 % (0-5); Neutrophil # 4.13 X10^3/uL (2.7-7.7); Neutrophil % 63.9 % (47-70); Platelet Count 165 K/mm3 (150-450); RBC Distribution Width CV 14.8 % (11.6-14.6); RBC Distribution Width SD 48.8 fl (35.1-43.9); White Blood Count 6.5 K/mm3 (4.4-11.0)
[2025-03-07 16:23] LABS: ALB/GLOB Ratio 1.4 RATIO (0.9-2.4); AST(SGOT) 16 U/L (<=37); Alanine Aminotransfer ALT/SGPT 7 U/L (<=46); Albumin, Serum 4.2 g/dL (3.4-4.8); Alkaline Phosphatase 128 U/L (40-129); Anion Gap 11 (5-15); BUN 21 mg/dL (4-19); Calcium,Total 9.3 mg/dL (7.6-11.0); Carbon Dioxide 22.3 mmol/L (21.0-32.0); Chloride 107 mmol/L (98-108); Creatinine, Serum 1.05 mg/dL (0.70-1.20); EST Glomerular Filtration Rate 73 (>60); Globulin 2.9 g/dL (2.2-4.2); Glucose 162 mg/dL (70-99); Potassium 4.6 mmol/L (3.3-5.1); Protein, Total 7.1 g/dL (5.9-8.4); Sodium Level 140 mmol/L (133-145); Total Bilirubin 0.58 mg/dL (0.00-1.30); Vitamin D,25 Hydroxy 28.4 ng/mL (30-100)
== END | disposition home or self-care (01) ==
LOC: LAB 13:49
PROVIDERS: PCP Family Medicine Geriatric Medicine; Referring Provider Family Medicine Geriatric Medicine; Visit Provider Family Medicine Geriatric Medicine
DX: E11.65 Type 2 diabetes mellitus with hyperglycemia (principal); E55.9 Vitamin D deficiency, unspecified; R53.83 Other fatigue
CPT/HCPCS: 36415; 80053; 82306; 84443; 85025

== ENCOUNTER → 2025-03-15 | Outpatient (CLI) | payer MEDICARE, SELFPAY ==
--- NOTE | 2025-03-15 07:48 | US_ITS ---
PROCEDURE: ELASTOGRAPHY PARENCHYMA/ORGAN 03/15/2025 REASON FOR EXAM: FATTY LIVER TECHNIQUE: Elastography of the liver parenchyma was performed. COMPARISON: Comparison is made with prior sonogram dated March 02, 2025. FINDINGS: KPA: 7.3. Velocity: 1.6 m/sec. Metavir score: F2/F3. US/Elastography Parenchyma/Organ IMPRESSION: Metavir score: F2/F3 Reading Location: [id number]
== END | disposition home or self-care (01) ==
LOC: US 07:46
PROVIDERS: PCP Family Medicine Geriatric Medicine; Referring Provider Family Medicine Geriatric Medicine; Visit Provider Family Medicine Geriatric Medicine
DX: K76.0 Fatty (change of) liver, not elsewhere classified (principal)
CPT/HCPCS: 91200; 76981

== ENCOUNTER → 2025-04-07 | Outpatient (CLI) | payer MEDICARE, SELFPAY ==
[2025-04-07] VITALS (7 sets, daily range): BP systolic 90–143; BP diastolic 55–74; PULSE 79–100; RESP 18; O2SAT 94–97
--- NOTE | 2025-04-07 12:17 | MRI_ITS ---
PROCEDURE: MRI ABD WITH AND W/O CONTRAST 04/07/2025 REASON FOR EXAM: LIVER HEMANGIOMA TECHNIQUE: MRI of the upper abdomen without and with intravenous gadolinium-based contrast. Multiplanar and multisequence images were obtained. CONTRAST: Clariscan VOLUME: 15mL COMPARISON: Ultrasound exam on 03/02/2025. FINDINGS: Well-defined nonenhancing simple cyst in the segment 2 of the liver measuring 11 mm. 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 Cholelithiasis without acute cholecystitis. Scattered left renal simple cysts are noted with the largest measuring 1.2 cm. Diffuse spondylosis. The visualized lung bases are unremarkable. Normal remaining liver. Normal extrahepatic biliary system. Normal spleen. Normal pancreas. Normal bilateral adrenal glands. Normal size of the right kidney. There is no right renal mass. There are no right renal calculi. There is no right hydronephrosis. Normal visualized right ureter. Normal size of the left kidney. There is no left renal mass. There are no left renal calculi. There is no left hydronephrosis. Normal visualized left ureter. Normal visualized stomach. Normal visualized small intestine. Normal visualized colon. There is no demonstrated peritoneal fluid. Normal abdominal aorta. Normal inferior vena cava. Normal retroperitoneum. MRI/MRI Abd WITH and W/O Contrast IMPRESSION: Well-defined nonenhancing simple cyst in the segment II of the liver measuring 11 mm. Well-defined portal hepatic venous fistula is noted in the segment 5 of the rig ht hepatic lobe measuring 3.8 x 3.2 cm. Cholelithiasis without acute cholecystitis. Scattered left renal simple cysts are noted with the largest measuring 1.2 cm. Diffuse spondylosis. Reading Location: [id number]
== END | disposition home or self-care (01) ==
PROVIDERS: PCP Family Medicine Geriatric Medicine; Referring Provider Family Medicine Geriatric Medicine; Visit Provider Family Medicine Geriatric Medicine
DX: K80.20 Calculus of gallbladder without cholecystitis without obstruction (principal); D18.03 Hemangioma of intra-abdominal structures
CPT/HCPCS: 74183; A9575; A4216

== ENCOUNTER → 2025-04-27 | Outpatient (CLI) | payer MEDICARE, SELFPAY | END | disposition home or self-care (01) | LOC: PSN 08:36 | PROVIDERS: PCP Family Medicine Geriatric Medicine; Referring Provider Internal Medicine Cardiovascular Disease; Visit Provider Internal Medicine Cardiovascular Disease | DX: I47.20 Ventricular tachycardia, unspecified (principal); Z95.0 Presence of cardiac pacemaker | CPT/HCPCS: 93225; 93226 ==

== ENCOUNTER → 2025-05-04 | Outpatient (CLI) | payer MEDICARE, SELFPAY ==
[2025-05-04 12:53] LABS: Hematocrit 31.1 % (40-54); Hemoglobin 10.5 g/dL (13.0-16.5); Immature Granulocytes Count 0.020 X10^3/uL (0.0-0.0); Mean Corp Hgb Conc 33.8 g/dL (32-36); Mean Corpuscular Volume 87.9 fL (80-94); Mean Platelet Vol. 11.0 fl (6.2-12.0); NRBC Flagged by Analyzer 0 % (0-5); Platelet Count 117 K/mm3 (150-450); RBC Distribution Width CV 14.0 % (11.6-14.6); RBC Distribution Width SD 45.3 fl (35.1-43.9); Red Blood Count 3.54 M/mm3 (4.6-6.2); White Blood Count 6.4 K/mm3 (4.4-11.0)
[2025-05-04 13:44] LABS: AST(SGOT) 21 U/L (<=37); Alanine Aminotransfer ALT/SGPT 9 U/L (<=46); Albumin, Serum 4.2 g/dL (3.4-4.8); Alkaline Phosphatase 113 U/L (40-129); Anion Gap 15 (5-15); BUN 41 mg/dL (4-19); BUN/Creat Ratio 17.1 RATIO (10-20); Calcium,Total 8.7 mg/dL (7.6-11.0); Carbon Dioxide 24.2 mmol/L (21.0-32.0); Chloride 99 mmol/L (98-108); Cholesterol 101 mg/dL (<=200); Globulin 2.9 g/dL (2.2-4.2); Glucose 152 mg/dL (70-99); Low Density Lipoprotein Calc. 22 mg/dL; Potassium 3.9 mmol/L (3.3-5.1); Triglycerides 218 mg/dL; Very Low Density Lipoprotein 44 mg/dL (5-40); cholesterol:hdl ratio screen 2.85
== END | disposition home or self-care (01) ==
LOC: LAB 11:31
PROVIDERS: Internal Medicine Cardiovascular Disease; PCP Family Medicine Geriatric Medicine; Referring Provider Student in an Organized Health Care Education/Training Program; Visit Provider Student in an Organized Health Care Education/Training Program
DX: I44.39 Other atrioventricular block (principal); I48.19 Other persistent atrial fibrillation; E11.9 Type 2 diabetes mellitus without complications; E78.5 Hyperlipidemia, unspecified; D50.9 Iron deficiency anemia, unspecified; Z79.899 Other long term (current) drug therapy
CPT/HCPCS: 36415; 80053; 80061; 85025

== ENCOUNTER → 2025-05-16 | Outpatient (CLI) | payer MEDICARE, SELFPAY ==
--- NOTE | 2025-05-16 12:58 | ECHOD_ITS ---
Reason For Study Reason For Study: Other Procedure This was a 2D Doppler, Color Flow transthoracic echocardiogram. Exam performed in department. Left Ventricle Normal LV size. Mild concentric left ventricular hypertrophy. The LV ejection fraction is 55 %. Stage 3 diastolic dysfunction. Right Ventricle Normal right ventricle. Atria The left atrium is severely enlarged. The right atrium is moderately enlarged. Mitral Valve Mild (1+) mitral valve insufficiency. Tricuspid Valve Trivial tricuspid valve insufficiency. Right ventricular systolic pressure estimated to be 45 mmHg. Aortic Valve Bioprosthetic stent mounted aortic valve appears to function normally. Mean peak gradient 7.5 mmHg. Pulmonic Valve The pulmonic valve is not well visualized. Trivial pulmonic valve insufficiency. Great Vessels Normal sized aortic root. Pericardium/Pleural No pericardial effusion. MMode/2D Measurements & Calculations LVIDd: 4.0 cm IVSd: 1.4 cm LVOT diam: 2.2 cm LVIDs: 2.9 cm LVPWd: 1.4 cm LVOT area: 3.9 cm2 RVDd: 3.8 cm FS: 26.3 % Ao root diam: 3.9 cm LAV(MOD-bp): 125.0 ml LVAd ap4: 29.4 cm2 LAV(MOD-bp) Indexed: 58.1 ml/m2 LVLd ap4: 7.6 cm LAV(MOD-sp2): 136.9 ml EDV(MOD-sp4): 95.4 ml LAV(MOD-sp4): 107.9 ml EDV(sp4-el): 96.3 ml LVAs ap4: 18.7 cm2 LVLs ap4: 7.2 cm ESV(MOD-sp4): 44.8 ml ESV(sp4-el): 41.6 ml EF(MOD-sp4): 53.0 % EF(sp4-el): 56.8 % SV(MOD-sp4): 50.6 ml SV(sp4-el): 54.7 ml LA A4 area: 31.7 cm2 SI(MOD-sp4): 23.5 ml/m2 LA dimension(2D): 6.2 cm RA A4 area: 22.2 cm2 TAPSE: 1.9 cm Time Measurements MV dec time: 0.22 sec Doppler Measurements & Calculations MV E max oswaldo: 127.1 cm/sec Lat Peak E' Oswaldo: 17.2 cm/sec Med Peak E' Oswaldo: 9.1 cm/sec MV A max oswaldo: 23.7 cm/sec E/E' lat: 7.4 E/E' med: 13.9 MV E/A: 5.4 MV V2 max: 139.1 cm/sec MV P1/2t max oswaldo: 140.4 cm/sec Ao V2 max: 184.3 cm/sec MV max P.8 mmHg MV P1/2t: 75.5 msec Ao max P.6 mmHg MV V2 mean: 69.8 cm/sec Ao V2 mean: 127.2 cm/sec MV mean P.5 mmHg MV dec slope: 544.5 cm/sec2 Ao mean P.5 mmHg MV V2 VTI: 30.5 cm MVA(P1/2t): 2.9 cm2 Ao V2 VTI: 35.3 cm AV (velocity ratio): 0.85 MVA(VTI): 3.9 cm2 MARKEL(I,D): 3.3 cm2 MARKEL(V,D): 3.0 cm2 LV V1 max: 140.0 cm/sec SV(LVOT): 117.9 ml PA V2 max: 108.2 cm/sec LV V1 max P.0 mmHg PA V2 mean: 70.1 cm/sec LV V1 mean P.9 mmHg LV V1 mean: 102.4 cm/sec LV V1 VTI: 30.2 cm TR max oswaldo: 316.2 cm/sec TR max P.0 mmHg ECHO/Echo Complete Interpretation Summary Mild concentric left ventricular hypertrophy. The LV ejection fraction is 55 %. Stage 3 diastolic dysfunction. The left atrium is severely enlarged. The right atrium is moderately enlarged. Mild (1+) mitral valve insufficiency. Right ventricular systolic pressure estimated to be 45 mmHg. Bioprosthetic stent mounted aortic valve appears to function normally. Mean pea k gradient 7.5 mmHg. Ordering Physician: Latasha Ceja Referring Physician: Latasha Ceja Performed By: Dwaine Crenshaw, RUST
[2025-05-16 15:07] LABS: Anion Gap 11 (5-15); BUN 19 mg/dL (4-19); BUN/Creat Ratio 12.0 RATIO (10-20); Calcium,Total 8.9 mg/dL (7.6-11.0); Carbon Dioxide 21.3 mmol/L (21.0-32.0); Chloride 106 mmol/L (98-108); Glucose 114 mg/dL (70-99); Potassium 4.4 mmol/L (3.3-5.1)
== END | disposition home or self-care (01) ==
PROVIDERS: Student in an Organized Health Care Education/Training Program; PCP Family Medicine Geriatric Medicine; Referring Provider Internal Medicine Cardiovascular Disease; Visit Provider Internal Medicine Cardiovascular Disease
DX: I10 Essential (primary) hypertension (principal); N17.9 Acute kidney failure, unspecified; Z95.3 Presence of xenogenic heart valve
CPT/HCPCS: 36415; 80048; 93306

== ENCOUNTER → 2025-06-07 | Outpatient (CLI) | payer MEDICARE, SELFPAY ==
[2025-06-07 10:08] LABS: Hematocrit 31.5 % (40-54); Hemoglobin 10.5 g/dL (13.0-16.5); Immature Granulocytes Count 0.030 X10^3/uL (0.0-0.0); Mean Corp Hgb Conc 33.3 g/dL (32-36); Mean Corpuscular Volume 89.7 fL (80-94); Mean Platelet Vol. 10.9 fl (6.2-12.0); NRBC Flagged by Analyzer 0 % (0-5); Platelet Count 113 K/mm3 (150-450); RBC Distribution Width CV 15.3 % (11.6-14.6); RBC Distribution Width SD 49.9 fl (35.1-43.9); Red Blood Count 3.51 M/mm3 (4.6-6.2); White Blood Count 6.0 K/mm3 (4.4-11.0)
[2025-06-07 11:02] LABS: AST(SGOT) 26 U/L (<=37); Alanine Aminotransfer ALT/SGPT 11 U/L (<=46); Albumin, Serum 4.3 g/dL (3.4-4.8); Alkaline Phosphatase 140 U/L (40-129); Anion Gap 12 (5-15); BUN 14 mg/dL (4-19); BUN/Creat Ratio 9.5 RATIO (10-20); Calcium,Total 9.2 mg/dL (7.6-11.0); Carbon Dioxide 20.9 mmol/L (21.0-32.0); Chloride 107 mmol/L (98-108); Ferritin 594 ng/mL (37-417); Globulin 2.9 g/dL (2.2-4.2); Glucose 83 mg/dL (70-99); Iron 39 ug/dL (65-175); Iron Binding Capacity,Unsat 182 ug/dL (228-428); LDH 351 U/L (87-241); Potassium 4.3 mmol/L (3.3-5.1); Vitamin B12 1848 pg/mL (180-914)
[2025-06-07 11:03] LABS: Vitamin D,25 Hydroxy 30.4 ng/mL (30-100)
[2025-06-07 11:10] LABS: Iron Binding Capacity,Total 221 ug/dL (250-450)
== END | disposition home or self-care (01) ==
LOC: POLAB3 09:46
PROVIDERS: Internal Medicine Medical Oncology; PCP Family Medicine Geriatric Medicine; Visit Provider Family Medicine Geriatric Medicine
DX: E11.65 Type 2 diabetes mellitus with hyperglycemia (principal); E55.9 Vitamin D deficiency, unspecified; D50.9 Iron deficiency anemia, unspecified; R53.83 Other fatigue
CPT/HCPCS: 36415; 80053; 82306; 82607; 82728; 83540; 83550; 83615; 84443; 85025

== ENCOUNTER → 2025-07-01 | Outpatient (CLI) | payer MEDICARE, SELFPAY ==
[2025-07-01 14:30] LABS: Hematocrit 29.5 % (40-54); Hemoglobin 9.6 g/dL (13.0-16.5); Immature Granulocytes Count 0.020 X10^3/uL (0.0-0.0); Mean Corp Hgb Conc 32.5 g/dL (32-36); Mean Corpuscular Volume 91.6 fL (80-94); Mean Platelet Vol. 10.1 fl (6.2-12.0); NRBC Flagged by Analyzer 0 % (0-5); Platelet Count 114 K/mm3 (150-450); RBC Distribution Width CV 16.2 % (11.6-14.6); RBC Distribution Width SD 54.0 fl (35.1-43.9); Red Blood Count 3.22 M/mm3 (4.6-6.2); White Blood Count 6.5 K/mm3 (4.4-11.0)
[2025-07-01 16:19] LABS: Ferritin 585 ng/mL (37-417); LDH 346 U/L (87-241)
[2025-07-01 16:31] LABS: AST(SGOT) 28 U/L (<=37); Alanine Aminotransfer ALT/SGPT 17 U/L (<=46); Albumin, Serum 4.3 g/dL (3.4-4.8); Alkaline Phosphatase 132 U/L (40-129); Anion Gap 11 (5-15); BUN 18 mg/dL (4-19); BUN/Creat Ratio 12.0 RATIO (10-20); Calcium,Total 9.2 mg/dL (7.6-11.0); Carbon Dioxide 20.5 mmol/L (21.0-32.0); Chloride 110 mmol/L (98-108); Globulin 2.9 g/dL (2.2-4.2); Glucose 130 mg/dL (70-99); Iron 56 ug/dL (65-175); Iron Binding Capacity,Unsat 170 ug/dL (228-428); Potassium 4.5 mmol/L (3.3-5.1); Vitamin B12 1947 pg/mL (180-914)
[2025-07-01 16:50] LABS: Iron Binding Capacity,Total 226 ug/dL (250-450)
== END | disposition home or self-care (01) ==
LOC: LAB 13:55
PROVIDERS: PCP Family Medicine Geriatric Medicine; Referring Provider Internal Medicine Medical Oncology; Visit Provider Internal Medicine Medical Oncology
DX: D50.9 Iron deficiency anemia, unspecified (principal)
CPT/HCPCS: 80053; 82607; 82728; 83540; 83550; 83615; 85025

== ENCOUNTER → 2025-08-04 | Outpatient (CLI) | payer MEDICARE, SELFPAY ==
--- NOTE | 2025-08-04 08:30 | CT_ITS ---
PROCEDURE: CT chest with contrast 08/04/2025 REASON FOR EXAM: LUNG NODULE TECHNIQUE: Procedure Code: CTCHW Modality: CT Procedure: CHEST WITH CONTRAST Coronal and Sagittal reconstruction series were provided. CONTRAST: Isovue 370 VOLUME: 94 mL One or more dose reduction techniques were used (e.g., Automated exposure control, adjustment of the mA and/or kV according to patient size, use of iterative reconstruction technique). RADIATION DOSE SUMMARY: CTDlvol: 37.03 mGy DLP: 594.74 mGycm COMPARISON: None. FINDINGS: Lower neck:The thyroid gland is normal. There is no supraclavicular lymphadenopathy. Mediastinum:There are multiple reactive mediastinal lymph nodes. Index node, a precarinal node, measuring 1.8 x 1.1 cm. Heart and Aorta:The heart is enlarged. There is no pericardial effusion. There is moderate calcific vascular disease of the thoracic aorta and coronary arteries. Status post TAVR. There is a single lead pacemaker. Esophagus:Normal. Upper Abdomen:There is calcific vascular disease of the visualized abdominal aorta. There is a 9 mm in diameter hypodense nodule in the left hepatic lobe. Chest wall:There is a pacemaker generator in the left upper chest wall. There is no axillary lymphadenopathy. There are findings of DISH throughout the thoracic spine. Lungs, airways and pleura: There is mild upper lobe predominant centrilobular emphysema. There is interstitial pulmonary edema and small bilateral pleural effusions. CT/Chest WITH Contrast IMPRESSION: 1. Mild congestive heart failure. 2. There are no significant pulmonary nodules. 3. Other findings as noted. Reading Location: [id number]
--- NOTE | 2025-08-04 09:46 | RAD_ITS ---
PROCEDURE: ELBOW MIN 3 VIEWS 08/04/2025 REASON FOR EXAM: OSTEOARTHRITIS OF LEFT ELBOW TECHNIQUE: Procedure Code: RADEL Modality: DX Procedure: ELBOW MIN 3 VIEWS Laterality: Left COMPARISON: None FINDINGS: There is no evidence of acute fracture or dislocation. There is mild arthritis of the elbow joint. There is no elbow joint effusion. There is a large olecranon spur. There is soft tissue swelling over the olecranon consistent with bursitis. RAD/Elbow min 3 Views IMPRESSION: DEGENERATIVE OSTEOARTHROSIS. OLECRANON SPUR WITH BURSITIS. Reading Location: [place] [id number]
[2025-08-04 10:52] LABS: Hematocrit 33.2 % (40-54); Hemoglobin 11.0 g/dL (13.0-16.5); Immature Granulocytes Count 0.030 X10^3/uL (0.0-0.0); Mean Corp Hgb Conc 33.1 g/dL (32-36); Mean Corpuscular Volume 92.0 fL (80-94); Mean Platelet Vol. 11.5 fl (6.2-12.0); NRBC Flagged by Analyzer 0 % (0-5); POSITIVE COUNT YES; Platelet Count 91 K/mm3 (150-450); RBC Distribution Width CV 15.8 % (11.6-14.6); RBC Distribution Width SD 52.5 fl (35.1-43.9); Red Blood Count 3.61 M/mm3 (4.6-6.2); White Blood Count 7.1 K/mm3 (4.4-11.0)
[2025-08-04 10:56] LABS: Differential Indicated SCAN CRITERIA MET
[2025-08-04 11:31] LABS: Differential Comment SCANNED
[2025-08-04 11:34] LABS: Anion Gap 12 (5-15); BUN 22 mg/dL (4-19); BUN/Creat Ratio 16.9 RATIO (10-20); CRP 3.20 mg/L (0.0-3.0); Calcium,Total 9.1 mg/dL (7.6-11.0); Carbon Dioxide 20.1 mmol/L (21.0-32.0); Chloride 108 mmol/L (98-108); Glucose 106 mg/dL (70-99); Potassium 4.2 mmol/L (3.3-5.1); Uric Acid 4.6 mg/dL (3.5-7.2)
[2025-08-04 17:45] LABS: Xtra Tube Kwok EXTRA TUBE
== END | disposition home or self-care (01) ==
PROVIDERS: PCP Family Medicine Geriatric Medicine; Referring Provider Family Medicine Geriatric Medicine; Visit Provider Family Medicine Geriatric Medicine
DX: R91.1 Solitary pulmonary nodule (principal); M19.022 Primary osteoarthritis, left elbow; M10.9 Gout, unspecified; R53.83 Other fatigue; R70.0 Elevated erythrocyte sedimentation rate; Z13.6 Encounter for screening for cardiovascular disorders
CPT/HCPCS: 36415; 71260; 73080; 80048; 84550; 85025; 85652; 86140; Q9967; A4216

== ENCOUNTER → 2025-08-10 | Outpatient (CLI) | payer MEDICARE, SELFPAY ==
[2025-08-10 18:18] LABS: Hematocrit 34.5 % (40-54); Hemoglobin 11.2 g/dL (13.0-16.5); Immature Granulocytes Count 0.050 X10^3/uL (0.0-0.0); Mean Corp Hgb Conc 32.5 g/dL (32-36); Mean Corpuscular Volume 92.7 fL (80-94); Mean Platelet Vol. 11.2 fl (6.2-12.0); NRBC Flagged by Analyzer 0 % (0-5); Platelet Count 104 K/mm3 (150-450); RBC Distribution Width CV 16.6 % (11.6-14.6); RBC Distribution Width SD 55.7 fl (35.1-43.9); Red Blood Count 3.72 M/mm3 (4.6-6.2); White Blood Count 9.4 K/mm3 (4.4-11.0)
[2025-08-10 18:43] LABS: Anion Gap 12 (5-15); BUN 26 mg/dL (4-19); BUN/Creat Ratio 16.8 RATIO (10-20); Calcium,Total 8.7 mg/dL (7.6-11.0); Carbon Dioxide 20.9 mmol/L (21.0-32.0); Chloride 108 mmol/L (98-108); Glucose 133 mg/dL (70-99); Potassium 3.8 mmol/L (3.3-5.1); Pro- Brain NATRIURETIC PEPTIDE 4096 pg/mL (<=1800)
[2025-08-11 00:51] LABS: Xtra Tube Kwok EXTRA TUBE
== END | disposition home or self-care (01) ==
LOC: POLAB3 16:51
PROVIDERS: PCP Family Medicine Geriatric Medicine; Visit Provider Family Medicine Geriatric Medicine
DX: R06.02 Shortness of breath (principal); R53.83 Other fatigue
CPT/HCPCS: 36415; 80048; 83880; 85025

== ENCOUNTER → 2025-09-07 | Outpatient (CLI) | payer MEDICARE, SELFPAY ==
[2025-09-07 10:24] LABS: Hematocrit 36.0 % (40-54); Hemoglobin 11.9 g/dL (13.0-16.5); Immature Granulocytes Count 0.030 X10^3/uL (0.0-0.0); Mean Corp Hgb Conc 33.1 g/dL (32-36); Mean Corpuscular Volume 92.1 fL (80-94); Mean Platelet Vol. 11.2 fl (6.2-12.0); NRBC Flagged by Analyzer 0 % (0-5); Platelet Count 121 K/mm3 (150-450); RBC Distribution Width CV 15.6 % (11.6-14.6); RBC Distribution Width SD 52.2 fl (35.1-43.9); Red Blood Count 3.91 M/mm3 (4.6-6.2); White Blood Count 7.3 K/mm3 (4.4-11.0)
[2025-09-07 11:18] LABS: AST(SGOT) 31 U/L (<=37); Alanine Aminotransfer ALT/SGPT 21 U/L (<=46); Albumin, Serum 4.4 g/dL (3.4-4.8); Alkaline Phosphatase 115 U/L (40-129); Anion Gap 12 (5-15); BUN 32 mg/dL (4-19); BUN/Creat Ratio 23.2 RATIO (10-20); Calcium,Total 9.7 mg/dL (7.6-11.0); Carbon Dioxide 22.9 mmol/L (21.0-32.0); Chloride 106 mmol/L (98-108); Globulin 2.7 g/dL (2.2-4.2); Glucose 126 mg/dL (70-99); Potassium 4.0 mmol/L (3.3-5.1); Uric Acid 6.9 mg/dL (3.5-7.2); Vitamin D,25 Hydroxy 32.1 ng/mL (30-100)
[2025-09-07 17:38] LABS: Xtra Tube Kwok EXTRA TUBE
== END | disposition home or self-care (01) ==
LOC: POLAB3 09:38
PROVIDERS: PCP Family Medicine Geriatric Medicine; Visit Provider Family Medicine Geriatric Medicine
DX: E11.65 Type 2 diabetes mellitus with hyperglycemia (principal); E55.9 Vitamin D deficiency, unspecified; M10.9 Gout, unspecified; R53.83 Other fatigue
CPT/HCPCS: 36415; 80053; 82306; 84443; 84550; 85025